=== PATIENT | female | born 1940 | race Caucasian/White ===

== ENCOUNTER → 2020-06-29 09:29 | Outpatient (BNVA) | payer MEDICARE, SELFPAY | PROVIDERS: PCP Internal Medicine; Referring Provider Internal Medicine; Visit Provider Surgery | DX: R10.31 Right lower quadrant pain (principal) | CPT/HCPCS: 99203; 99214 ==

== ENCOUNTER 2020-07-12 10:01 | Outpatient (REF) | payer MEDICARE, SELFPAY ==
[2020-07-12 11:40] LABS: Blood Urea Nitrogen 10 mg/dL (9-16); Estimated Glomerular Filt Rate > 60
== END 2020-07-12 10:02 | disposition home or self-care (01) ==
LOC: HO.LAB 10:01
PROVIDERS: PCP Internal Medicine; Visit Provider Surgery
DX: R10.31 Right lower quadrant pain (principal)
CPT/HCPCS: 82565; 84520

== ENCOUNTER 2020-07-17 08:10 | Outpatient (REF) | payer MEDICARE, SELFPAY ==
--- NOTE | 2020-07-17 08:13 | CT_ITS ---
EXAMINATION: CT ABDOMEN AND PELVIS WITH CONTRAST CLINICAL INFORMATION: Right lower quadrant pain. COMPARISON: Ultrasound abdomen 06/07/2020, CT abdomen and pelvis 12/25/2019 TECHNIQUE: Multidetector volumetric images were obtained from the superior aspect of the liver through the pubic symphysis following administration 85 mL of Omnipaque 350 intravenous contrast. Sagittal and coronal reformatted images were obtained on the technologist's workstation. Oral contrast: No This CT examination was performed using dose optimization techniques as appropriate, variously including the following: *Automated exposure control *Adjustment of mA and/or kV according to patient size (this includes techniques or standardized protocols for targeted exams where dose is matched to indication/reason for exam; i.e. extremities or head) *Use of iterative reconstruction technique DLP: 534 mGy-cm FINDINGS: LUNG BASES: The visualized lung bases are unremarkable. LIVER, GALLBLADDER, AND BILIARY TREE: The liver is normal in size, shape, and attenuation. No focal hepatic lesion or biliary ductal dilatation is present. There are multiple dependent radiopaque gallstones without wall thickening. PANCREAS: Unremarkable. SPLEEN: Unremarkable. ADRENAL GLANDS: Unremarkable. KIDNEYS AND URETERS: Both kidneys are lobulated with the right kidney appearing slightly smaller than the left. The right kidney measures 7.10 cm and the left kidney measures 9.8 cm. There is mild cortical thinning right kidney. There are bilateral renal cysts. No radiopaque renal calculi or hydronephrosis seen. There are surgical alex visualized in the right pelvis. BLADDER: Unremarkable. GASTROINTESTINAL TRACT: There is scattered oral contrast, stool and gas seen throughout the colon without any significant distention. The small bowel loops are normal caliber. The appendix is not visualized. There is no free air or free fluid. No inflammatory changes seen in the abdomen. ABDOMINAL WALL: No significant hernia is appreciated. LYMPH NODES: Normal. VASCULAR: There is atherosclerotic calcification of abdominal aorta without aneurysmal dilatation. PELVIC VISCERA: The uterus is anteverted and appears unremarkable. There is no adnexal mass or free fluid. OSSEOUS STRUCTURES: There is mild ventral spondylosis throughout dorsal and lumbar spine. No lytic or sclerotic process seen. There is bilateral L5-S1, L4-L5 and L3-L4 facet joint arthropathy. CT/CT abdomen pelvis w con IMPRESSION: Cholelithiasis without wall thickening. Small right kidney with cortical thinning. Bilateral lobulated kidneys with bilateral renal cysts. No hydronephrosis seen.
[2020-07-17] MEDS: iohexoL 350 MG/ML 100 ML INFUS..BTL 85 ML IV (11:54)
[2020-07-17] MEDS: Barium Sulfate Oral (Vanilla) 450 ML ORAL.SUSP 900 ML PO (11:54)
== END 2020-07-17 08:11 | disposition home or self-care (01) ==
LOC: HO.CT 08:10
PROVIDERS: PCP Internal Medicine; Visit Provider Surgery
DX: R10.31 Right lower quadrant pain (principal)
CPT/HCPCS: 74177; Q9967

== ENCOUNTER → 2020-07-20 08:24 | Outpatient (BNVA) | payer MEDICARE, SELFPAY | PROVIDERS: PCP Internal Medicine; Referring Provider Internal Medicine; Visit Provider Surgery | DX: R10.31 Right lower quadrant pain (principal); S39.011D Strain of muscle, fascia and tendon of abdomen, subsequent encounter | CPT/HCPCS: 99212 ==

== ENCOUNTER 2020-11-06 14:23 | Outpatient (REF) | payer MEDICARE, SELFPAY ==
[2020-11-06 15:04] LABS: MANUAL DIFF FLAG NO
[2020-11-06 15:09] LABS: Basophils Absolute Auto 0.1 X10*3/uL (0.0-0.2); Basophils Percent Auto 0.9 % (0-2); Eosinophils Absolute Auto 0.1 X10*3/uL (0.0-0.4); Eosinophils Percent Auto 1.3 % (0-4); Hematocrit 44.1 % (37-47); Imm Gran Abs Auto 0.03 X10*3/uL (0.00-0.03); Imm Gran Pct Auto 0.4 % (0.0-0.4); Lymphocytes Absolute Auto 1.8 X10*3/uL (1.2-4.9); Lymphocytes Percent Auto 23.3 % (20-40); Mean Corpuscular HGB Conc 31.7 g/dl (31.0-35.0); Mean Corpuscular Hemoglobin 27.3 pg (27.0-33.0); Mean Corpuscular Volume 86.1 fL (80-98); Mean Platelet Volume 9.6 fL (9.4-12.3); Monocytes Absolute Auto 0.6 X10*3/uL (0.1-1.2); Monocytes Percent Auto 7.3 % (2-11); Neutrophils Absolute Auto 5.1 X10*3/uL (2.0-8.3); Neutrophils Percent Auto 66.8 % (45-73); Platelet Count 256 X10*3/uL (160-400); Red Blood Count 5.12 X10*6/uL (4.20-5.50); Red Cell Distribution Width 14.6 % (11.0-16.0); White Blood Count 7.6 X10*3/uL (4.8-10.8)
[2020-11-06 15:09] LABS: Glucose Urine UA NEG (NEG); Leukocyte Esterase Urine 3+ (NEG); Nitrite Urine NEG (NEG); PH 5.5 (5.0-8.0); UACC Culture Trigger YES; Urine Blood TRACE (NEG); Urine Ketones NEG (NEG); Urine Protein NEG (NEG-TRACE)
[2020-11-06 15:10] LABS: Appearance Urine CLOUDY; Color Urine YELLOW
[2020-11-06 15:28] LABS: Alanine Aminotransferase 13 U/L (0-31); Albumin Level 4.4 g/dL (3.5-5.0); Alkaline Phosphatase 74 U/L (39-117); Anion Gap 13 (12-20); Aspartate Amino Transferase 13 U/L (5-31); Bilirubin Total 0.5 mg/dL (0.0-1.0); Blood Urea Nitrogen 15 mg/dL (9-16); C Reactive Protein 0.59 mg/dL (< or = 0.50); Calcium 10.1 mg/dL (8.4-10.2); Carbon Dioxide 29 mmol/L (22-29); Chloride 104 mmol/L (96-108); Cholesterol 235 mg/dL; Estimated Glomerular Filt Rate > 60; Glucose Random 99 mg/dL (60-115); Potassium 4.8 mmol/L (3.3-5.1); Sodium 141 mmol/L (135-145); Total Protein 7.3 g/dL (6.5-8.0)
[2020-11-06 15:49] LABS: Free T4 (Free Thyroxine) 0.96 ng/dL (0.71-1.85); Thyroid Stimulating Hormone 4.36 uIU/mL (0.32-4.0)
[2020-11-06 16:47] LABS: RBC Urine 0 /HPF (0); Squamous Epithelial Cell Urine 1+ /LPF; WBC Urine 50-75 /HPF (0-4)
[2020-11-06 16:48] LABS: Renal Epithelial Cells Urine 2+ /LPF
== END 2020-11-06 14:24 | disposition home or self-care (01) ==
LOC: HO.LAB 14:23
PROVIDERS: PCP Internal Medicine; Visit Provider Internal Medicine
DX: I10 Essential (primary) hypertension (principal); E03.9 Hypothyroidism, unspecified; M25.519 Pain in unspecified shoulder; K21.9 Gastro-esophageal reflux disease without esophagitis; R10.9 Unspecified abdominal pain; N28.9 Disorder of kidney and ureter, unspecified
CPT/HCPCS: 36415; 80053; 81001; 81003; 82465; 84439; 84443; 85025; 86140; 87086

== ENCOUNTER 2020-11-12 12:07 | Outpatient (REF) | payer MEDICARE, SELFPAY ==
[2020-11-12 14:05] LABS: Urine Cytology See Pathology rpt
[2020-11-12 14:20] LABS: Glucose Urine UA NEG (NEG); Leukocyte Esterase Urine 2+ (NEG); Nitrite Urine NEG (NEG); UACC Culture Trigger YES; Urine Blood NEG (NEG); Urine Ketones NEG (NEG); Urine Protein NEG (NEG-TRACE)
[2020-11-12 14:23] LABS: Appearance Urine HAZY; Color Urine STRAW
[2020-11-12 14:32] LABS: RBC Urine 0 /HPF (0); Squamous Epithelial Cell Urine TRACE /LPF
== END 2020-11-12 12:08 | disposition home or self-care (01) ==
LOC: HO.10HDL 12:07
PROVIDERS: Visit Provider Internal Medicine
DX: D72.829 Elevated white blood cell count, unspecified (principal); R35.0 Frequency of micturition
CPT/HCPCS: 81001; 81003; 87086; 88112

== ENCOUNTER 2021-02-20 12:17 | Outpatient (REF) | payer MEDICARE, SELFPAY ==
[2021-02-20 12:56] LABS: MANUAL DIFF FLAG NO
[2021-02-20 13:05] LABS: Estimated Average Glucose 103 mg/dL; Hemoglobin A1C 111.6296 umol/L; Hemoglobin A1c % 5.2 %
[2021-02-20 13:06] LABS: Basophils Absolute Auto 0.1 X10*3/uL (0.0-0.2); Basophils Percent Auto 0.7 % (0-2); Eosinophils Absolute Auto 0.1 X10*3/uL (0.0-0.4); Eosinophils Percent Auto 1.8 % (0-4); Hematocrit 41.2 % (37-47); Imm Gran Abs Auto 0.03 X10*3/uL (0.00-0.03); Imm Gran Pct Auto 0.4 % (0.0-0.4); Lymphocytes Percent Auto 27.8 % (20-40); Mean Corpuscular HGB Conc 31.6 g/dl (31.0-35.0); Mean Corpuscular Hemoglobin 27.7 pg (27.0-33.0); Mean Corpuscular Volume 87.7 fL (80-98); Monocytes Absolute Auto 0.6 X10*3/uL (0.1-1.2); Monocytes Percent Auto 8.4 % (2-11); Neutrophils Absolute Auto 4.4 X10*3/uL (2.0-8.3); Neutrophils Percent Auto 60.9 % (45-73); Platelet Count 224 X10*3/uL (160-400); Red Cell Distribution Width 15.2 % (11.0-16.0); White Blood Count 7.2 X10*3/uL (4.8-10.8)
[2021-02-20 13:20] LABS: Alanine Aminotransferase 10 U/L (0-31); Albumin Level 4.1 g/dL (3.5-5.0); Alkaline Phosphatase 79 U/L (39-117); Anion Gap 12 (12-20); Aspartate Amino Transferase 15 U/L (5-31); Bilirubin Total 0.4 mg/dL (0.0-1.0); Blood Urea Nitrogen 17 mg/dL (9-16); Calcium 10.1 mg/dL (8.4-10.2); Carbon Dioxide 27 mmol/L (22-29); Chloride 106 mmol/L (96-108); Estimated Glomerular Filt Rate 55; Glucose Random 92 mg/dL (60-115); Phosphorus 3.3 mg/dL (2.7-4.5); Potassium 4.7 mmol/L (3.3-5.1); Sodium 140 mmol/L (135-145); Total Protein 6.8 g/dL (6.5-8.0); Uric Acid 7.8 mg/dL (2.4-5.7)
[2021-02-20 13:41] LABS: Vitamin D 25-OH Total 17.3 ng/mL (>30)
[2021-02-20 14:51] LABS: Glucose Urine UA NEG (NEG); Leukocyte Esterase Urine 2+ (NEG); Nitrite Urine NEG (NEG); Urine Blood NEG (NEG); Urine Ketones NEG (NEG); Urine Protein NEG (NEG-TRACE)
[2021-02-20 14:52] LABS: Appearance Urine HAZY; Color Urine YELLOW
[2021-02-20 15:08] LABS: Bacteria Urine 1+ /LPF; Squamous Epithelial Cell Urine 1+ /LPF
[2021-02-20 17:00] LABS: Creatinine Urine 96.88 mg/dL; Microalbum/Creatinine Ratio Ur 8.2 ug/mg cr
[2021-02-22 15:57] LABS: Calcium (PTHI) 10.3 mg/dL (8.6-10.4); PTHI 125 pg/mL (14-64)
== END 2021-02-20 12:18 | disposition home or self-care (01) ==
LOC: HO.LAB 12:17
PROVIDERS: Internal Medicine; PCP Internal Medicine; Visit Provider Internal Medicine Hypertension Specialist
DX: N18.30 Chronic kidney disease, stage 3 unspecified (principal)
CPT/HCPCS: 36415; 80053; 81001; 82043; 82306; 83036; 83735; 83970; 84100; 84550; 85025

== ENCOUNTER 2021-04-24 10:16 | Outpatient (REF) | payer MEDICARE, SELFPAY ==
--- NOTE | ~2021-04-24 | MM_ITS ---
EXAMINATION: BONE DENSITOMETRY CLINICAL INDICATION: Osteoporosis. Primary hyperparathyroidism. COMPARISON: This is the patient's baseline examination. TECHNIQUE: Using a [employer] DXA System (software version: 13.1) manufactured by [employer], dual-energy x-ray absorptiometry was performed of the lumbar spine, left hip, and left forearm radius 33%. The images are of good technical quality. Summary results are attached. FINDINGS: AP SPINE L1-L4: BMD 1.396 g/cm2, Z-score 2.5, T-score 1.8, normal. LEFT FEMUR, NECK: BMD 0.712 g/cm2, Z-score -0.9, T-score -2.3, osteopenia. LEFT FEMUR, TOTAL: BMD 0.859 g/cm2, Z-score 0.0, T-score -1.2, osteopenia. LEFT FOREARM RADIUS 33%: BMD 0.889 g/cm2, Z-score 2.9, T-score 0.1, normal. IDENTIFIED RISK FACTORS: Hyperparathyroidism, tobacco use (current smoker), height loss, menopause. HISTORY OF FRACTURE: None listed. MEDICATIONS: None listed. MM/XR DEXA appendicular skeleton IMPRESSION: 1. DIAGNOSIS: Osteopenia based on the lowest T-score value of -2.3 in the femoral neck applying World Health Organization criteria. 2. 10-YEAR FRACTURE RISK PREDICTION, FRAX: Major osteoporotic fracture (clinical spine, forearm, hip or shoulder) 17.6%. Hip fracture 8.0%. 3. Treatment Recommendations: NOF guidelines recommend consideration for treatment in postmenopausal women and men age 50 and older presenting with the following: -A hip or vertebral (clinical or morphometric) fracture. -T-score less than or equal to -2.5 at the femoral neck or spine after appropriate evaluation to exclude secondary causes. -Low bone mass at the hip or spine and a 10-year fracture probability by FRAX of greater than or equal to 3% for hip fracture or greater than or equal to 20% for major osteoporotic fracture based on the [place] adapted WHO algorithm. 4. Other Recommendations: All treatment decisions require clinical judgment and consideration of individual patient factors, including patient preferences, comorbidities, previous drug use, risk factors not captured in the FRAX model (e.g. frailty, falls, vitamin D deficiency, increased bone turnover, interval significant decline in bone density) and possible under or overestimation of fracture risk by FRAX. Additional medical evaluation for secondary cause of low bone mineral density may be appropriate. FUTURE SCAN RECOMMENDATION: People with diagnosed cases of osteoporosis or at high risk for fracture should have regular bone mineral density tests. For patients eligible for Medicare, routine testing is allowed once every 2 years. The testing frequency can be increased to one year for patients who have rapidly progressing disease, those who are receiving or discontinuing medical therapy to restore bone mass, or have additional risk factors.
== END 2021-04-24 10:17 | disposition home or self-care (01) ==
LOC: HO.MAMMO 10:16
PROVIDERS: Visit Provider Internal Medicine
DX: Z13.820 Encounter for screening for osteoporosis (principal); E21.0 Primary hyperparathyroidism; F17.200 Nicotine dependence, unspecified, uncomplicated; R29.890 Loss of height; Z78.0 Asymptomatic menopausal state
CPT/HCPCS: 77081

== ENCOUNTER 2021-05-22 13:46 | Outpatient (REF) | payer MEDICARE, SELFPAY ==
[2021-05-22 14:20] LABS: MANUAL DIFF FLAG NO
[2021-05-22 14:23] LABS: Basophils Percent Auto 0.4 % (0-2); Eosinophils Absolute Auto 0.1 X10*3/uL (0.0-0.4); Eosinophils Percent Auto 1.7 % (0-4); Hemoglobin 13.3 g/dl (12.0-16.0); Imm Gran Abs Auto 0.03 X10*3/uL (0.00-0.03); Imm Gran Pct Auto 0.4 % (0.0-0.4); Lymphocytes Absolute Auto 1.6 X10*3/uL (1.2-4.9); Lymphocytes Percent Auto 23.2 % (20-40); Mean Corpuscular HGB Conc 31.7 g/dl (31.0-35.0); Mean Corpuscular Hemoglobin 27.7 pg (27.0-33.0); Mean Corpuscular Volume 87.3 fL (80-98); Mean Platelet Volume 9.5 fL (9.4-12.3); Monocytes Absolute Auto 0.5 X10*3/uL (0.1-1.2); Monocytes Percent Auto 7.8 % (2-11); Neutrophils Absolute Auto 4.6 X10*3/uL (2.0-8.3); Neutrophils Percent Auto 66.5 % (45-73); Platelet Count 228 X10*3/uL (160-400); Red Blood Count 4.81 X10*6/uL (4.20-5.50); Red Cell Distribution Width 14.9 % (11.0-16.0); White Blood Count 6.9 X10*3/uL (4.8-10.8)
[2021-05-22 14:49] LABS: Alanine Aminotransferase 8 U/L (0-31); Albumin Level 4.2 g/dL (3.5-5.0); Alkaline Phosphatase 68 U/L (39-117); Anion Gap 14 (12-20); Aspartate Amino Transferase 13 U/L (5-31); Bilirubin Total 0.7 mg/dL (0.0-1.0); Blood Urea Nitrogen 15 mg/dL (9-16); C Reactive Protein 0.65 mg/dL (< or = 0.50); Calcium 10.5 mg/dL (8.4-10.2); Carbon Dioxide 26 mmol/L (22-29); Chloride 107 mmol/L (96-108); Estimated Glomerular Filt Rate 55; Glucose Random 109 mg/dL (60-115); Potassium 4.4 mmol/L (3.3-5.1); Sodium 143 mmol/L (135-145); Total Protein 6.8 g/dL (6.5-8.0)
[2021-05-22 15:08] LABS: Free T4 (Free Thyroxine) 1.23 ng/dL (0.71-1.85)
[2021-05-22 15:22] LABS: Vitamin B12 283 pg/mL (200-900)
[2021-05-26 06:31] LABS: Calcium (PTHI) 10.4 mg/dL (8.6-10.4); PTHI 99 pg/mL (14-64)
== END 2021-05-22 13:47 | disposition home or self-care (01) ==
LOC: HO.LAB 13:46
PROVIDERS: Visit Provider Internal Medicine
DX: I12.9 Hypertensive chronic kidney disease with stage 1 through stage 4 chronic kidney disease, or unspecified chronic kidney disease (principal); N18.9 Chronic kidney disease, unspecified; E03.9 Hypothyroidism, unspecified; M25.511 Pain in right shoulder; M25.512 Pain in left shoulder; D72.829 Elevated white blood cell count, unspecified
CPT/HCPCS: 36415; 80053; 82607; 83970; 84439; 84443; 85025; 86140

== ENCOUNTER 2021-07-03 10:45 | Outpatient (REF) | payer MEDICARE, SELFPAY ==
--- NOTE | ~2021-07-03 | XR_ITS ---
EXAMINATION: XR SHOULDER, LEFT CLINICAL INFORMATION: Pain COMPARISON: Left humerus x-ray April 2011 TECHNIQUE: 3 views of the left shoulder. FINDINGS: Bone alignment is normal. No fracture or dislocation is seen. There is arthritis at the glenohumeral and acromioclavicular joints with joint space narrowing and osteophyte formation. There degenerative changes of the greater tuberosity with subchondral cyst formation. There is soft tissue calcification adjacent to the left greater tuberosity. XR/XR shoulder LT min 2V IMPRESSION: Degenerative changes.
--- NOTE | ~2021-07-03 | XR_ITS ---
EXAMINATION: XR CHEST CLINICAL INFORMATION: Chest wall pain COMPARISON: Previous chest x-ray most recent October 2019 TECHNIQUE: 2 views of the chest were obtained. FINDINGS: The cardiac and mediastinal contours are stable. The lungs are clear. There is no pleural effusion or pneumothorax. There are degenerative changes of the spine. Bony structures are otherwise unremarkable. XR/XR chest 2V IMPRESSION: No evidence for acute disease in the chest.
== END 2021-07-03 10:46 | disposition home or self-care (01) ==
LOC: HO.XRAY 10:45
PROVIDERS: Visit Provider Internal Medicine
DX: R07.89 Other chest pain (principal); M25.512 Pain in left shoulder
CPT/HCPCS: 71046; 73030

== ENCOUNTER → 2021-08-05 09:50 | Outpatient (BNVA) | payer MEDICARE, SELFPAY | PROVIDERS: PCP Internal Medicine; Visit Provider Orthopaedic Surgery | DX: M12.812 Other specific arthropathies, not elsewhere classified, left shoulder (principal) | CPT/HCPCS: 20610; 99202; J1100 ==

== ENCOUNTER 2021-11-13 16:08 | Emergency (ER) | payer MEDICARE, SELFPAY ==
--- NOTE | ~2021-11-13 | CT_ITS ---
EXAMINATION: CT ABDOMEN AND PELVIS WITHOUT CONTRAST CLINICAL INFORMATION: Right-sided flank pain COMPARISON: Multiple prior CT scans of the abdomen and pelvis most recent of which was 07/17/2020 TECHNIQUE: Multidetector volumetric imaging was performed from the superior aspect of the liver through the pubic symphysis. Sagittal and coronal reformatted images were obtained on the technologist's workstation. This CT examination was performed using dose optimization techniques as appropriate, variously including the following: *Automated exposure control *Adjustment of mA and/or kV according to patient size (this includes techniques or standardized protocols for targeted exams where dose is matched to indication/reason for exam; i.e. extremities or head) *Use of iterative reconstruction technique DLP: 767 mGy-cm FINDINGS: LUNG BASES: The visualized lung bases are unremarkable. LIVER, GALLBLADDER, AND BILIARY TREE: The liver is enlarged measuring 18.8 cm in greatest dimension. Normal in shape and attenuation. The gallbladder contains multiple layering small gallstones but otherwise is unremarkable with no evidence of gallbladder wall thickening or obvious pericholecystic inflammatory changes. PANCREAS: Unremarkable. SPLEEN: Unremarkable. ADRENAL GLANDS: Unremarkable. KIDNEYS AND URETERS: Again seen is marked scarring in the right kidney along with some complex cysts. The left kidney is normal in size and contains a number of cysts as well the largest a Bosniak class I measuring 1.5 cm with multiple subcentimeter hyperechoic attenuating Bosniak class II cysts. These need no further imaging or follow-up. 2 surgical clips are present adjacent to the right renal pelvis. No definite collecting system calculi are present. No hydronephrosis. BLADDER: Unremarkable. GASTROINTESTINAL TRACT: The small and large bowel are unremarkable. The appendix is not seen. ABDOMINAL WALL: No significant hernia is appreciated. LYMPH NODES: No retroperitoneal lymphadenopathy. VASCULAR: Calcific plaque present in the aorta and iliofemoral vessels without aneurysm. Left renal vein is retroaortic. PELVIC VISCERA: An anteverted uterus is present. An abnormal adnexal mass is not seen. No free intraperitoneal fluid is detected. OSSEOUS STRUCTURES: Marked degenerative changes present in the lower thoracic upper lumbar spine. Minimal grade 1 anterolisthesis of L5 upon S1. No bony destructive lesions. CT/CT abdomen pelvis wo con IMPRESSION: 1. A cause for the patient's acute right-sided flank pain is not seen. No convincing evidence of nephrolithiasis and no hydronephrosis. 2. There is cholelithiasis without cholecystitis. 3. Mild hepatosplenomegaly. 4. Other incidental findings as described above Fleischner guidelines were followed.
[2021-11-13 17:40] VITALS: BP 197/63; PULSE 61; RESP 18; TEMP 37.1; O2SAT 95; BMI 33.9
[2021-11-13 18:02] LABS: Appearance Urine CLEAR; Color Urine YELLOW; Glucose Urine UA NEG (NEG); Leukocyte Esterase Urine 1+ (NEG); Nitrite Urine NEG (NEG); UACC Culture Trigger YES; Urine Blood NEG (NEG); Urine Ketones NEG (NEG); Urine Protein NEG (NEG-TRACE)
[2021-11-13 18:14] LABS: MANUAL DIFF FLAG NO
[2021-11-13 18:16] LABS: Basophils Absolute Auto 0.1 X10*3/uL (0.0-0.2); Basophils Percent Auto 0.8 % (0-2); Eosinophils Absolute Auto 0.1 X10*3/uL (0.0-0.4); Eosinophils Percent Auto 1.6 % (0-4); Hematocrit 44.4 % (37.0-47.0); Hemoglobin 14.1 g/dl (12.0-16.0); Imm Gran Abs Auto 0.02 X10*3/uL (0.00-0.03); Imm Gran Pct Auto 0.3 % (0.0-0.4); Lymphocytes Absolute Auto 1.9 X10*3/uL (1.2-4.9); Lymphocytes Percent Auto 25.3 % (20-40); Mean Corpuscular HGB Conc 31.8 g/dl (31.0-35.0); Mean Corpuscular Hemoglobin 27.8 pg (27.0-33.0); Mean Corpuscular Volume 87.4 fL (80.0-98.0); Mean Platelet Volume 9.3 fL (9.4-12.3); Monocytes Absolute Auto 0.5 X10*3/uL (0.1-1.2); Monocytes Percent Auto 5.9 % (2-11); Neutrophils Absolute Auto 5.1 x10*3/uL (2.0-8.3); Neutrophils Percent Auto 66.1 % (45-73); Platelet Count 248 X10*3/uL (160-400); Red Blood Count 5.08 X10*6/uL (4.20-5.50); Red Cell Distribution Width 14.8 % (11.0-16.0); White Blood Count 7.7 X10*3/uL (4.8-10.8)
[2021-11-13 18:27] LABS: Anion Gap 14 (12-20); Blood Urea Nitrogen 12 mg/dL (9-16); Carbon Dioxide 25 mmol/L (22-29); Chloride 106 mmol/L (96-108); Creatinine Clr Calc Pharmacy 60.6; Estimated Glomerular Filt Rate > 60; Glucose Random 98 mg/dL (60-115); Potassium 4.6 mmol/L (3.3-5.1); Sodium 140 mmol/L (135-145)
[2021-11-13 18:31] LABS: WBC Urine 0-2 /HPF (0-4)
[2021-11-13 18:32] LABS: Bacteria Urine TRACE /LPF; RBC Urine 0-2 /HPF (0); Squamous Epithelial Cell Urine TRACE /LPF
[2021-11-13 19:14] VITALS: BP 152/65; PULSE 73; RESP 14; TEMP 36.4; O2SAT 96
--- NOTE | 2021-11-13 19:15 | ED_ITS ---
HPI - Abdominal Pain General Chief Complaint: Abdominal Pain <Mayo Pike MD - Last Filed: 11/13/21 19:19> Stated Complaint: back pain, kidney stones? <Mayo Pike MD - Last Filed: 11/13/21 19:19> Time Seen by Provider: 11/13/21 19:00 <Mayo Pike MD - Last Filed: 11/13/21 19:19> Source: patient, family and old records reviewed <Mayo Pike MD - Last Filed: 11/13/21 19:19> History of Present Illness HPI narrative: Patient with right flank pain for the past 3 days. Radiates to right side of abdomen. She has a long history of kidney stones over the past 30 years with multiple prior procedures including open surgery and lithotripsy. Last kidney stone was approximately 4 or 5 years ago per family. She states it feels similar to kidney stone which can be positive. No urinary symptoms. No hematuria dysuria hesitancy or frequency. No nausea vomiting. Pain is worse with movement and palpation. It is sharp. No other recent illnesses. No cough or dyspnea <Mayo Pike MD - Last Filed: 11/13/21 19:19> Related Data Home Medications: Home Medications Medication Instructions Recorded Confirmed levothyroxine 125 mcg tablet 125 mcg PO DAILY 06/29/20 06/29/20 metoprolol tartrate 25 mg tablet 25 mg PO DAILY tab 06/29/20 06/29/20 Previous Rx's Medication Instructions Recorded cyclobenzaprine 5 mg tablet 5 mg PO BEDTIME PRN #6 tab 11/13/21 lidocaine 5 % topical patch 1 patch TOPICAL DAILY PRN #15 ea 11/13/21 <Mayo Pike MD - Last Filed: 11/13/21 19:19> Allergies/Adverse Reactions: Allergies Allergy/AdvReac Type Severity Reaction Status Date / Time No Known Allergies Allergy Verified 11/13/21 17:39 [No Known Allergies*] <Mayo Pike MD - Last Filed: 11/13/21 19:19> Review of Systems Comments: No fevers or chills <Mayo Pike MD - Last Filed: 11/13/21 19:19> Comments: No chest pain <Mayo Pike MD - Last Filed: 11/13/21 19:19> Comments: No cough or dyspnea <Mayo Pike MD - Last Filed: 11/13/21 19:19> Comments: Right flank pain with intermittent right mid abdominal pain. No abdominal pain now <Mayo Pike MD - Last Filed: 11/13/21 19:19> Comments: No dysuria, hematuria, hesitancy, or frequency <Mayo Pike MD - Last Filed: 11/13/21 19:19> Comments: Right flank pain <Mayo Pike MD - Last Filed: 11/13/21 19:19> Comments: No rash <Mayo Pike MD - Last Filed: 11/13/21 19:19> Comments: No weakness or numbness <Mayo Pike MD - Last Filed: 11/13/21 19:19> PMFSH Past Medical History Medical History: Medical History (Updated 11/13/21 @ 21:46 by NITHYA Fishman) Arthritis Hard of hearing Hypertension Hypothyroidism (acquired) Kidney stones <Mayo Pike MD - Last Filed: 11/13/21 19:19> Surgical History: Surgical History History of lithotripsy (~08/15/16) History of thyroidectomy <Mayo Pike MD - Last Filed: 11/13/21 19:19> Family History Family History: Family History Father Myocardial infarct Mother Myocardial infarct <Mayo Pike MD - Last Filed: 11/13/21 19:19> Social History Social History: Social History Advance Directives: No Advance Directives Information Provided: No <Mayo Pike MD - Last Filed: 11/13/21 19:19> Physical Exam ED Vital Signs: Vital Signs - 24 hr 11/13/21 17:40 11/13/21 19:14 Temperature 98.7 F 97.5 F Pulse Rate 61 73 Respiratory Rate 18 14 Blood Pressure 197/63 H 152/65 H Pulse Oximetry 95 96 BMI result Body Mass Index 33.9 <Mayo Pike MD - Last Filed: 11/13/21 19:19> Vital Signs - 24 hr 11/13/21 17:40 11/13/21 19:14 Temperature 98.7 F 97.5 F Pulse Rate 61 73 Respiratory Rate 18 14 Blood Pressure 197/63 H 152/65 H Pulse Oximetry 95 96 BMI result Body Mass Index 33.9 <NITHYA Fishman - Last Filed: 11/13/21 21:49> Const Other: Awake and alert in no acute distress <Mayo Pike MD - Last Filed: 11/13/21 19:19> Resp Other: Clear and equal bilaterally without wheezes rales or rhonchi <Mayo Pike MD - Last Filed: 11/13/21 19:19> Cardio Other: Regular rate and rhythm. Holosystolic murmur <Mayo Pike MD - Last Filed: 11/13/21 19:19> GI Other: Soft nontender anteriorly. Nondistended. Positive right flank tenderness to palpation and percussion <Mayo Pike MD - Last Filed: 11/13/21 19:19> Back/Spine/Pelvis Other: No midline spinal tenderness <Mayo Pike MD - Last Filed: 11/13/21 19:19> Skin Other: Warm pink and dry without rash <Mayo Pike MD - Last Filed: 11/13/21 19:19> Neuro Other: No focal neural deficit <Mayo Pike MD - Last Filed: 11/13/21 19:19> Course Course Course Narrative: Kidney stone Musculoskeletal pain Uncontrolled hypertension Aortic aneurysm CBC and chemistries are unremarkable. Treated with metoprolol. Toradol IV Normal saline [address] scan <Mayo Pike MD - Last Filed: 11/13/21 19:19> Reevaluation(s) Reevaluation #1: Patient reports significant improvement with Toradol. CT of the abdomen and pelvis with no acute stones. There are renal cyst. No hydronephrosis. Patient's pain is likely musculoskeletal will give her low dose of cyclobenza meghan and a lidocaine patch. Comfortable discharge home with specialist follow- up. <NITHYA Fishman - Last Filed: 11/13/21 21:49> Time: 21:48 <NITHYA Fishman - Last Filed: 11/13/21 21:49> MDM - Abdominal Pain Lab Data Result diagrams: : 11/13/21 18:10 11/13/21 18:10 <Mayo Pike MD - Last Filed: 11/13/21 19:19> Labs: Lab Results 11/13/21 11/13/21 11/13/21 Range/Units 17:54 18:10 18:10 WBC 7.7 (4.8-10.8) X10*3/uL RBC 5.08 (4.20-5.50) X10*6/uL Hgb 14.1 (12.0-16.0) g/dl Hct 44.4 (37.0-47.0) % MCV 87.4 (80.0-98.0) fL MCH 27.8 (27.0-33.0) pg MCHC 31.8 (31.0-35.0) g/dl RDW 14.8 (11.0-16.0) % Plt Count 248 (160-400) X10*3/uL MPV 9.3 L (9.4-12.3) fL Immature Gran % (Auto) 0.3 (0.0-0.4) % Neut % (Auto) 66.1 (45-73) % Lymph % (Auto) 25.3 (20-40) % [place] % (Auto) 5.9 (2-11) % Eos % (Auto) 1.6 (0-4) % Baso % (Auto) 0.8 (0-2) % Lymph # (Auto) 1.9 (1.2-4.9) X10*3/uL [place] # (Auto) 0.5 (0.1-1.2) X10*3/uL Eos # (Auto) 0.1 (0.0-0.4) X10*3/uL Baso # (Auto) 0.1 (0.0-0.2) X10*3/uL Abs Immat Gran (auto) 0.02 (0.00-0.03) X10*3/uL Absolute Neuts (auto) 5.1 (2.0-8.3) x10*3/uL Absolute Nucleated RBC 0.000 (0.0-0.012) X10*3/uL Nucleated RBC % (auto) 0.0 (0.0-0.2) /100WBC Sodium 140 (135-145) mmol/L Potassium 4.6 (3.3-5.1) mmol/L Chloride 106 (96-108) mmol/L Carbon Dioxide 25 (22-29) mmol/L Anion Gap 14 (12-20) BUN 12 (9-16) mg/dL Creatinine 0.86 (0.5-1.4) mg/dL Estim Creat Clear Calc 60.6 Estimated GFR > 60 Random Glucose 98 (60-115) mg/dL Calcium 10.0 (8.4-10.2) mg/dL Urine Color YELLOW Urine Appearance CLEAR Urine pH 6.0 (5.0-8.0) Ur Specific [place] 1.020 (1.005-1.025) Urine Protein NEG (NEG-TRACE) MG/DL Urine Glucose (UA) NEG (NEG) MG/DL Urine Ketones NEG (NEG) MG/DL Urine Blood NEG (NEG) Urine Nitrite NEG (NEG) Ur Leukocyte Esterase 1+ H (NEG) Urine RBC 0-2 (0) /HPF Urine WBC 0-2 (0-4) /HPF Ur Squamous Epith Cells TRACE /LPF Urine Bacteria TRACE /LPF <Mayo Pike MD - Last Filed: 11/13/21 19:19> Lab Results 11/13/21 11/13/21 11/13/21 Range/Units 17:54 18:10 18:10 WBC 7.7 (4.8-10.8) X10*3/uL RBC 5.08 (4.20-5.50) X10*6/uL Hgb 14.1 (12.0-16.0) g/dl Hct 44.4 (37.0-47.0) % MCV 87.4 (80.0-98.0) fL MCH 27.8 (27.0-33.0) pg MCHC 31.8 (31.0-35.0) g/dl RDW 14.8 (11.0-16.0) % Plt Count 248 (160-400) X10*3/uL MPV 9.3 L (9.4-12.3) fL Immature Gran % (Auto) 0.3 (0.0-0.4) % Neut % (Auto) 66.1 (45-73) % Lymph % (Auto) 25.3 (20-40) % [place] % (Auto) 5.9 (2-11) % Eos % (Auto) 1.6 (0-4) % Baso % (Auto) 0.8 (0-2) % Lymph # (Auto) 1.9 (1.2-4.9) X10*3/uL [place] # (Auto) 0.5 (0.1-1.2) X10*3/uL Eos # (Auto) 0.1 (0.0-0.4) X10*3/uL Baso # (Auto) 0.1 (0.0-0.2) X10*3/uL Abs Immat Gran (auto) 0.02 (0.00-0.03) X10*3/uL Absolute Neuts (auto) 5.1 (2.0-8.3) x10*3/uL Absolute Nucleated RBC 0.000 (0.0-0.012) X10*3/uL Nucleated RBC % (auto) 0.0 (0.0-0.2) /100WBC Sodium 140 (135-145) mmol/L Potassium 4.6 (3.3-5.1) mmol/L Chloride 106 (96-108) mmol/L Carbon Dioxide 25 (22-29) mmol/L Anion Gap 14 (12-20) BUN 12 (9-16) mg/dL Creatinine 0.86 (0.5-1.4) mg/dL Estim Creat Clear Calc 60.6 Estimated GFR > 60 Random Glucose 98 (60-115) mg/dL Calcium 10.0 (8.4-10.2) mg/dL Urine Color YELLOW Urine Appearance CLEAR Urine pH 6.0 (5.0-8.0) Ur Specific [place] 1.020 (1.005-1.025) Urine Protein NEG (NEG-TRACE) MG/DL Urine Glucose (UA) NEG (NEG) MG/DL Urine Ketones NEG (NEG) MG/DL Urine Blood NEG (NEG) Urine Nitrite NEG (NEG) Ur Leukocyte Esterase 1+ H (NEG) Urine RBC 0-2 (0) /HPF Urine WBC 0-2 (0-4) /HPF Ur Squamous Epith Cells TRACE /LPF Urine Bacteria TRACE /LPF <NITHYA Fishman - Last Filed: 11/13/21 21:49> Critical Care Time Critical Care Time Critical Care Time: No <NITHYA Fishman - Last Filed: 11/13/21 21:49> Discharge Plan Discharge Clinical Impression: Acute right flank pain <Mayo Pike MD - Last Filed: 11/13/21 19:19> Patient Disposition: Home, Self-Care <Mayo Pike MD - Last Filed: 11/13/21 19:19> Instructions: Flank Pain (ED) <Mayo Pike MD - Last Filed: 11/13/21 19:19> Additional Instructions: Take your medications as prescribed. If you were prescribed antibiotics today, it is important that you take your medication to their entirety, do not skip any doses, do not finish them early. Follow-up with your primary care provider this week. Return to the emergency department with new or worsening symptoms. Such as worsening pain, blood in urine, fevers, chills, nausea, vomiting, abdominal pain, chest pain, shortness of breath, weakness, lethargy. In case of emergency call 911 <Mayo Pike MD - Last Filed: 11/13/21 19:19> Prescriptions: New cyclobenzaprine 5 mg tablet 5 mg PO BEDTIME PRN (Reason: muscle spasm) Qty: 6 0RF lidocaine 5 % adhesive patch,medicated 1 patch topical DAILY PRN (Reason: pain) Qty: 15 0RF Rx Instructions: leave on most painful area for up to 12 hrs No Action levothyroxine 125 mcg tablet 125 mcg PO DAILY 0RF metoprolol tartrate 25 mg tablet 25 mg PO DAILY 0RF <Mayo Pike MD - Last Filed: 11/13/21 19:19> Referrals: Hung Rios MD [Physician] - 2 days Zuhair Singh MD [Primary Care Provider] - 2 days Rick Fall MD [Physician] - 2 days <Mayo Pike MD - Last Filed: 11/13/21 19:19>
[2021-11-13] MEDS: 0.9 % Sodium Chloride 500 ML IV (19:38)
[2021-11-13] MEDS: Ketorolac Tromethamine 15 MG/ML VIAL 30 MG IVPUSH (19:40)
[2021-11-13] MEDS: Metoprolol Tartrate 25 MG TABLET PO (19:41)
[2021-11-13] MEDS: Lidocaine 4 % Patch ADH..PATCH 1 PATCH TRANSDERMA (22:12)
== END 2021-11-13 22:13 | disposition home or self-care (01) ==
PROVIDERS: Emergency Provider Emergency Medicine; PCP Internal Medicine
DX: R10.9 Unspecified abdominal pain (principal); I10 Essential (primary) hypertension; Z87.442 Personal history of urinary calculi
CPT/HCPCS: 36415; 74176; 80048; 81001; 85025; 87086; 96361; 96374; 99284; J1885

== ENCOUNTER → 2021-11-26 09:38 | Outpatient (BNVA) | payer MEDICARE, SELFPAY | PROVIDERS: PCP Internal Medicine | DX: N28.1 Cyst of kidney, acquired (principal) | CPT/HCPCS: 99212 ==

== ENCOUNTER 2022-04-30 11:58 | Outpatient (REF) | payer MEDICARE, SELFPAY ==
--- NOTE | ~2022-04-30 | US_ITS ---
EXAMINATION: US RETROPERITONEAL LIMITED (RENAL ONLY) CLINICAL INFORMATION: Cyst of kidney, acquired. COMPARISON: CT abdomen and pelvis 11/13/2021. Ultrasound abdomen 06/07/2020. Renal ultrasound 08/18/2019. X-ray abdomen KUB 08/03/2019. TECHNIQUE: Real-time imaging of the kidneys. FINDINGS: RIGHT KIDNEY: 6.6 x 4.0 x 4.9 cm (SAG x AP x TRV). The kidney is normal in size, contour, and echogenicity there is mild cortical thinning.. There are no echogenic renal calculi or caliectasis. There is an anechoic cyst in the upper pole measuring 1.7 x 1.6 x 1.7 cm in lower pole measuring 1.4 x 1.4 x 1.3 cm. LEFT KIDNEY: 10.5 x 4.5 x 4.1 cm (SAG x AP x TRV). The kidney is normal in size, contour, and echogenicity. Renal cortical thickness is normal. No renal calculi or hydronephrosis. There is an anechoic cyst in lateral lower pole measuring 1.7 x 1.1 x 1.8 cm and medial lower pole measuring 1.1 x 0.9 x 0.8 cm. There is no caliectasis. US/US renal BI IMPRESSION: Bilateral renal cysts. No echogenic renal calculi. There is mild right cortical thinning.
== END 2022-04-30 11:59 | disposition home or self-care (01) ==
LOC: HO.US 11:58
DX: N28.1 Cyst of kidney, acquired (principal)
CPT/HCPCS: 76775

== ENCOUNTER → 2022-05-30 10:36 | Outpatient (BNVA) | payer MEDICARE, SELFPAY | PROVIDERS: PCP Internal Medicine; Visit Provider Urology | DX: N28.1 Cyst of kidney, acquired (principal) | CPT/HCPCS: Q3014 ==

== ENCOUNTER 2022-07-01 12:25 | Outpatient (REF) | payer MEDICARE, SELFPAY ==
[2022-07-01 13:43] LABS: MANUAL DIFF FLAG NO
[2022-07-01 13:50] LABS: Basophils Absolute Auto 0.1 X10*3/uL (0.0-0.2); Basophils Percent Auto 0.8 % (0-2); Eosinophils Percent Auto 0.7 % (0-4); Hematocrit 40.7 % (37.0-47.0); Hemoglobin 12.8 g/dl (12.0-16.0); Imm Gran Abs Auto 0.03 X10*3/uL (0.00-0.03); Imm Gran Pct Auto 0.5 % (0.0-0.4); Lymphocytes Absolute Auto 1.3 X10*3/uL (1.2-4.9); Lymphocytes Percent Auto 22.4 % (20-40); Mean Corpuscular HGB Conc 31.4 g/dl (31.0-35.0); Mean Corpuscular Volume 82.7 fL (80.0-98.0); Mean Platelet Volume 10.1 fL (9.4-12.3); Monocytes Absolute Auto 0.4 X10*3/uL (0.1-1.2); Monocytes Percent Auto 7.2 % (2-11); Neutrophils Absolute Auto 4.1 x10*3/uL (2.0-8.3); Neutrophils Percent Auto 68.4 % (45-73); Platelet Count 274 X10*3/uL (160-400); Red Blood Count 4.92 X10*6/uL (4.20-5.50); Red Cell Distribution Width 16.2 % (11.0-16.0)
[2022-07-01 14:21] LABS: Alanine Aminotransferase 6 U/L (0-31); Albumin Level 3.9 g/dL (3.5-5.0); Alkaline Phosphatase 72 U/L (39-117); Anion Gap 17 (12-20); Aspartate Amino Transferase 10 U/L (5-31); Bilirubin Total 0.6 mg/dL (0.0-1.0); Blood Urea Nitrogen 7 mg/dL (9-16); C Reactive Protein 1.82 mg/dL (< or = 0.50); Calcium 9.5 mg/dL (8.4-10.2); Carbon Dioxide 24 mmol/L (22-29); Chloride 104 mmol/L (96-108); Cholesterol 161 mg/dL; Estimated Glomerular Filt Rate > 60; Glucose Random 124 mg/dL (60-115); Lipase 40 U/L (8-78); Potassium 3.7 mmol/L (3.3-5.1); Sodium 141 mmol/L (135-145); Total Protein 6.6 g/dL (6.5-8.0)
[2022-07-01 14:22] LABS: Free T4 (Free Thyroxine) 1.18 ng/dL (0.71-1.85); Thyroid Stimulating Hormone 0.23 uIU/mL (0.32-4.0); Vitamin D 25-OH Total 15.1 ng/mL (>30)
[2022-07-01 14:48] LABS: Vitamin B12 323 pg/mL (200-900)
[2022-07-03 14:57] LABS: Calcium (PTHI) 9.6 mg/dL (8.6-10.4); PTHI 90 pg/mL (16-77)
== END 2022-07-01 12:26 | disposition home or self-care (01) ==
LOC: HO.10HDL 12:25
PROVIDERS: Visit Provider Internal Medicine
DX: R63.4 Abnormal weight loss (principal); I10 Essential (primary) hypertension; E03.9 Hypothyroidism, unspecified; R10.9 Unspecified abdominal pain; E55.9 Vitamin D deficiency, unspecified
CPT/HCPCS: 36415; 80053; 82306; 82465; 82607; 83690; 83970; 84439; 84443; 85025; 86140

== ENCOUNTER 2023-03-10 08:23 | Emergency (ER) | payer MEDICARE, SELFPAY ==
--- NOTE | ~2023-03-10 | CT_ITS ---
Unenhanced CT of the head, facial bones and cervical spine INDICATION: Fall, head strike, pain and facial bruising TECHNIQUE: Continuous helical imaging obtained through the head, facial bones and cervical spine without IV contrast. Reconstructed images performed in the coronal and sagittal planes. Total DLP: 1499 mGycm. Head: Atrophy and periventricular white matter changes. Vascular calcifications. No intracranial hemorrhage, extra-axial fluid collections cranial fractures or significant soft tissue hematomas after trauma. No evolving infarct, mass lesion, mass effect or midline shift. Multiple punctate frontal skin hyperdensities. Lens extractions have been performed. Facial bones: Motion limits evaluation of the bony structures, particularly the left mandible. However on accompanying cervical spine images, left mandible appears intact. There does not appear to be significant surrounding the soft tissue injury/hematoma. Temporomandibular joint are narrowed but intact. Orbital and maxillary crowley, zygomatic arches and other bony structures are without acute findings. Nonspecific lymph nodes are seen. Tongue, soft palate, epiglottis, parotid and submandibular glands are unremarkable. Visualized nasopharynx and oropharynx are unremarkable. Sinuses and mastoids are clear. Cervical spine: Cervical lordotic straightening, multilevel mild vertebral body height losses, multilevel disc space narrowings, spurring, neuroforaminal narrowings are seen. Multilevel mild spinal canal narrowings secondary with spurring, most severe resulting in moderate thecal sac compression at C6-C7. Retropharyngeal and laryngeal structures within normal limits. Asymmetrically dense left arytenoid cartilage. Surgical clips in the thyroid bed. Nuchal calcifications. CT/CT facial bones wo IV con IMPRESSION: Chronic small vessel ischemia and volume loss. No acute intracranial or bony pathology status post fall. Cervical lordotic straightening and multilevel degenerative changes.
--- NOTE | ~2023-03-10 | XR_ITS ---
EXAMINATION: XR KNEE, HAND, LEFT CLINICAL INFORMATION: Bruising and swelling after fall COMPARISON: None available. TECHNIQUE: Four views of the left knee and left hand. FINDINGS: Left knee: Significant demineralization. Patellofemoral and knee joints space narrowings and osteophytes. No fracture, dislocation or joint effusion. Vascular calcifications. Left hand: Mild degenerative changes first carpometacarpal joint. Diffuse interphalangeal joint space narrowings. Calcifications adjacent to the distal aspect of the first and second proximal phalanges. No fracture or dislocation. XR/XR hand wrist LT IMPRESSION: Degenerative type changes. No acute bony pathology left hand and left knee
--- NOTE | ~2023-03-10 | XR_ITS ---
EXAMINATION: XR KNEE, HAND, LEFT CLINICAL INFORMATION: Bruising and swelling after fall COMPARISON: None available. TECHNIQUE: Four views of the left knee and left hand. FINDINGS: Left knee: Significant demineralization. Patellofemoral and knee joints space narrowings and osteophytes. No fracture, dislocation or joint effusion. Vascular calcifications. Left hand: Mild degenerative changes first carpometacarpal joint. Diffuse interphalangeal joint space narrowings. Calcifications adjacent to the distal aspect of the first and second proximal phalanges. No fracture or dislocation. XR/XR knee LT 4V IMPRESSION: Degenerative type changes. No acute bony pathology left hand and left knee
--- NOTE | ~2023-03-10 | CT_ITS ---
Unenhanced CT of the head, facial bones and cervical spine INDICATION: Fall, head strike, pain and facial bruising TECHNIQUE: Continuous helical imaging obtained through the head, facial bones and cervical spine without IV contrast. Reconstructed images performed in the coronal and sagittal planes. Total DLP: 1499 mGycm. Head: Atrophy and periventricular white matter changes. Vascular calcifications. No intracranial hemorrhage, extra-axial fluid collections cranial fractures or significant soft tissue hematomas after trauma. No evolving infarct, mass lesion, mass effect or midline shift. Multiple punctate frontal skin hyperdensities. Lens extractions have been performed. Facial bones: Motion limits evaluation of the bony structures, particularly the left mandible. However on accompanying cervical spine images, left mandible appears intact. There does not appear to be significant surrounding the soft tissue injury/hematoma. Temporomandibular joint are narrowed but intact. Orbital and maxillary crowley, zygomatic arches and other bony structures are without acute findings. Nonspecific lymph nodes are seen. Tongue, soft palate, epiglottis, parotid and submandibular glands are unremarkable. Visualized nasopharynx and oropharynx are unremarkable. Sinuses and mastoids are clear. Cervical spine: Cervical lordotic straightening, multilevel mild vertebral body height losses, multilevel disc space narrowings, spurring, neuroforaminal narrowings are seen. Multilevel mild spinal canal narrowings secondary with spurring, most severe resulting in moderate thecal sac compression at C6-C7. Retropharyngeal and laryngeal structures within normal limits. Asymmetrically dense left arytenoid cartilage. Surgical clips in the thyroid bed. Nuchal calcifications. CT/CT cervical spine wo IV con IMPRESSION: Chronic small vessel ischemia and volume loss. No acute intracranial or bony pathology status post fall. Cervical lordotic straightening and multilevel degenerative changes.
[2023-03-10 08:26] VITALS: BP 153/83; PULSE 90; RESP 19; TEMP 36.6; O2SAT 99; BMI 35.2
--- NOTE | 2023-03-10 08:37 | ED.GENADULT ---
HPI - General Adult General Chief complaint: Fall Stated complaint: Fall 03/09/23 Time Seen by Provider: 03/10/23 08:37 Source: patient and family (patient's son) Mode of arrival: ambulatory Limitations: no limitations History of Present Illness HPI narrative: Patient is an 82 year old assigned female at with a history of arthritis presenting to the emergency department today with left hand pain, left elbow pain, and nose pain after a fall. Patient states that yesterday afternoon she tripped and fell, hitting her face, left hand, and left knee. Patient states that she did not lose consciousness with the incident. Patient denies any dizziness, lightheadedness, abdominal pain, nausea, vomiting, fever, chills, blurry vision, double vision, loss of vision, chest pain, difficulty breathing, shortness of breath, back pain, night sweats, pain with urination, increased urinary frequency, increased urinary urgency, blood in her urine or stool, syncope or a near syncopal episode, bowel incontinence, bladder incontinence, bowel retention, bladder retention, or any other complaints at this time. Onset (ago): day(s) (1) Severity: mild Severity scale (1-10): 3 Quality: aching and dull Pain Consistency: constant Relieving factors: none Exacerbating factors: movement Associated symptoms: denies other symptoms Treatments prior to arrival: none Related Data Home Medications Medication Instructions Recorded Confirmed levothyroxine 125 mcg tablet 125 mcg PO DAILY 06/29/20 06/29/20 metoprolol tartrate 25 mg tablet 25 mg PO DAILY 06/29/20 06/29/20 Previous Rx's Medication Instructions Recorded cyclobenzaprine 5 mg tablet 5 mg PO BEDTIME PRN muscle spasm 11/13/21 #6 tabs lidocaine 5 % topical patch 1 patch topical DAILY PRN pain #15 11/13/21 ea Allergies Allergy/AdvReac Type Severity Reaction Status Date / Time No Known Allergies Allergy Verified 05/30/22 10:37 [No Known Allergies*] Review of Systems Constitutional: Constitutional: Reports no additional constitutional complaints, Denies chills, Denies fever(s) and Denies night sweats Eyes: Eyes: Reports no additional eye complaints, Denies blurry vision, Denies change in vision, Denies diplopia, Denies eye discharge, Denies loss of vision and Denies eye pain ENT: Denies dizziness and Reports nose pain Cardiovascular: Cardiovascular: Reports no additional cardiovascular complaints, Denies chest pain, Denies lightheadedness, Denies Loss of Consciousness and Denies dyspnea Respiratory: Respiratory: Reports no additional respiratory complaints and Denies dyspnea Gastrointestinal: Gastrointestinal: Reports no additional gastrointestinal complaints, Denies abdominal pain, Denies melena, Denies hematochezia, Denies change in bowel habits and Denies change in stool character Genitourinary: Genitourinary: Denies hematuria, Denies urinary frequency, Denies dysuria, Denies urinary incontinence, Denies urinary hesitancy and Denies urinary urgency Musculoskeletal: Musculoskeletal: Reports no additional musculoskeletal complaints, Denies numbness and Denies tingling Comments: left knee pain, left hand pain Neurologic: Denies dizziness, Denies loss of vision, Denies numbness and Denies tingling Psychiatric: Psychiatric: Reports no additional psychiatric complaints Endocrine: Endocrine: Reports no additional endocrine complaints Hematologic/Lymphatic: Hematologic/Lymphatic: Reports no additional hematologic/lymphatic complaints Allergic/Immunologic: Allergic/Immunologic: Reports no additional allergic/immunologic complaints PMF Past Medical History Attestation statement: The following information was validated with the patient. (all information validated with the patient's son) Source: old records reviewed, obtained from family (patient's son) and nursing notes reviewed Medical History Anal pain Arthritis Arthritis of knee Hard of hearing Hypertension Hypothyroidism (acquired) Kidney stones Renal cyst, acquired Shoulder pain Thyroid disease Surgical History History of lithotripsy (~08/15/16) History of thyroidectomy Family History Family History Father Myocardial infarct Mother Myocardial infarct Social History Social History Alcohol intake: never Smoked in Last 30 Days: No Use of substances other than those prescribed or required for medical reasons: No Advance Directives: Yes Advance Directives Information Provided: Yes Advance Directives on File: No Physical Exam ED Vital Signs: Vital Signs - 24 hr 03/10/23 08:26 03/10/23 10:06 Temperature 98 F Pulse Rate 90 78 Respiratory Rate 19 18 Blood Pressure 153/83 H 156/53 H Pulse Oximetry 99 95 Oxygen Delivery Method Room Air BMI result Body Mass Index 35.2 Const General: cooperative, no acute distress, alert and awake Nutritional Appearance: well nourished Orientation/consciousness: patient oriented x3 Limitations: no limitations HENMT Ears: hearing grossly normal bilaterally and external ears normal General nose exam: no nasal discharge noted, no epistaxis and Other nasal findings present (bruising present to the bridge of the nose) Face and sinus: No abrasion, No laceration and Yes other Mouth: Normal oral and palatal mucosa present, no drooling and no muffled voice Eyes Other: minimal bilateral lower lid bruising present Conjunctivae: conjunctivae normal Pupils: Equal, round and reactive pupils present EOM: EOMs intact bilaterally Neck Neck: Yes normal visual inspection, Yes full ROM and Yes no lymphadenopathy Chest Chest palpation & inspection: normal inspection of the chest Resp Effort & Inspection: normal respiratory effort and able to speak in complete sentences GI Inspection: Yes normal to inspection Neuro General: patient oriented x3 and moves all extremities Cranial nerves: Yes Equal, round and reactive pupils present Cognition (Neuro): normal cognition Motor exam (neuro): 5/5 motor strength present throughout Sensory Exam: Normal double simultaneous stimulation for sensation Coordination: [id number] test normal Extrem Other: swelling and bruising present to the dorsal aspect of the left hand General: Yes full ROM and Yes capillary refill normal Psych Appearance: grossly normal Mental Status: mental status grossly normal Affect: normal affect Attitude: cooperative Thought process: Normal thought process present Thought content: Normal thought content present Insight: Good insight present (Psych) Medications Administered Discontinued Medications Generic Name Dose Route Start Last Admin Trade Name Amrita PRN Reason Stop Dose Admin Acetaminophen 650 mg 03/10/23 11:13 03/10/23 11:26 Acetaminophen 325 Mg Tablet PO 03/10/23 11:14 650 mg ONCE ONE Administration Medical Decision Making Medical Decision Making [facility] Narrative: Patient is an 82 year old assigned female at with a history of osteoarthritis presenting to the emergency department today with nasal pain, left hand pain, and left knee pain. Patient's physical exam was as noted in the physical exam portion of this chart. Patient's left hand and left knee x-rays showed no acute process. Patient's head, c-spine, and facial CTs showed no acute process. Given the amount of swelling present to the left hand, I recommended the patient follow up with an orthopedic provider. Given the bruising present to the bridge of the nose and under the bilateral eyes, I recommended the patient also follow up with an ENT for further examination of the nose. I explained my physical exam findings as well as all test results to the patient and the patient's son. I answered all questions asked by the patient and the patient's son. I stressed the importance of the patient taking her medication as prescribed. I stressed the importance of the patient following up with her primary care provider, an ENT, and an orthopedic provider. I stressed the importance of the patient returning to the emergency department immediately if her symptoms were to worsen or if she were to develop any dizziness, shortness of breath, difficulty breathing, chest pain, blurry vision, loss of vision, nausea, vomiting, abdominal pain, fever, chills, back pain, or any other complaints. Patient and the patient's son verbalized agreement and understanding with this treatment plan and discharge. Differential Diagnosis Differential Diagnoses: The differential diagnosis associated with the presentation includes Nasal fracture Nasal injury Nasal pain Fall Mechanical fall Left hand pain Left hand strain Left hand sprain Left hand fracture Left knee pain Left knee strain Left knee sprain Left knee fracture Admission/Observation Consideration of admission/observation: Escalation of care including admission/observation considered Patient would have been admitted to the hospital had her work up had any findings where hospital admission was appropriate and her clinical presentation warranted hospital admission. Independent Interpretation I performed an independent interpretation of an: Plain X-Ray and CT Scan Interpretation: My interpretation is in agreement with the radiologist's impression of these imaging studies. EXAMINATION: XR KNEE, HAND, LEFT CLINICAL INFORMATION: Bruising and swelling after fall? COMPARISON: None available.? TECHNIQUE: Four views of the left knee and left hand. FINDINGS: Left knee: Significant demineralization. Patellofemoral and knee joints space narrowings and osteophytes. No fracture, dislocation or joint effusion. Vascular calcifications. Left hand: Mild degenerative changes first carpometacarpal joint. Diffuse interphalangeal joint space narrowings. Calcifications adjacent to the distal aspect of the first and second proximal phalanges. No fracture or dislocation. XR/XR hand wrist LT IMPRESSION: Degenerative type changes. No acute bony pathology left hand and left knee Dictated By: Neli Serrano MD Signed By: Electronically signed by Neli Serrano MD 03/10/[address] of the head, facial bones and cervical spine INDICATION: Fall, head strike, pain and facial bruising TECHNIQUE: Continuous helical imaging obtained through the head, facial bones and cervical spine without IV contrast. Reconstructed images performed in the coronal and sagittal planes. Total DLP: 1499 mGycm. Head: Atrophy and periventricular white matter changes. Vascular calcifications. No intracranial hemorrhage, extra-axial fluid collections cranial fractures or significant soft tissue hematomas after trauma. No evolving infarct, mass lesion, mass effect or midline shift. Multiple punctate frontal skin hyperdensities. Lens extractions have been performed. Facial bones: Motion limits evaluation of the bony structures, particularly the left mandible. However on accompanying cervical spine images, left mandible appears intact. There does not appear to be significant surrounding the soft tissue injury/hematoma. Temporomandibular joint are narrowed but intact. Orbital and maxillary crowley, zygomatic arches and other bony structures are without acute findings. Nonspecific lymph nodes are seen. Tongue, soft palate, epiglottis, parotid and submandibular glands are unremarkable. Visualized nasopharynx and oropharynx are unremarkable. Sinuses and mastoids are clear. ? Cervical spine: Cervical lordotic straightening, multilevel mild vertebral body height losses, multilevel disc space narrowings, spurring, neuroforaminal narrowings are seen. Multilevel mild spinal canal narrowings secondary with spurring, most severe resulting in moderate thecal sac compression at C6-C7. Retropharyngeal and laryngeal structures within normal limits. Asymmetrically dense left arytenoid cartilage. Surgical clips in the thyroid bed. Nuchal calcifications. CT/CT cervical spine wo IV con IMPRESSION: Chronic small vessel ischemia and volume loss. No acute intracranial or bony pathology status post fall. Cervical lordotic straightening and multilevel degenerative changes. Dictated By: Neli Serrano MD Signed By: Electronically signed by Neli Serrano MD 03/10/23 5962 Radiology Impression Discussion of test interpretation with radiology: I have reviewed the radiologist's reading. Independent Historian Clinical information obtained from an independent historian. History obtained from or confirmed by: Other (patient's son provided additional history and confirmed the history provided by the patient) Prescription Management I considered prescription management with: Pain Medication (patient was offered pain medication prescription however, she declined.) Discharge Plan Discharge Clinical Impression: Hand pain, Nasal pain, Fall Patient Disposition: Home, Self-Care Instructions: Fall Prevention for Older Adults (ED), Contusion in Adults (ED) Additional Instructions: Follow up with your primary care provider, an ENT for your nose injury, and an orthopedic provider for your left hand injury. Return to the emergency department immediately if your symptoms worsen or if you develop any dizziness, shortness of breath, difficulty breathing, chest pain, blurry vision, loss of vision, nausea, vomiting, abdominal pain, fever, chills, back pain, or any other complaints. Prescriptions: No Action cyclobenzaprine 5 mg tablet 5 mg PO BEDTIME PRN (Reason: muscle spasm) Qty: 6 0RF lidocaine 5 % adhesive patch,medicated 1 patch topical DAILY PRN (Reason: pain) Qty: 15 0RF Rx Instructions: leave on most painful area for up to 12 hrs levothyroxine 125 mcg tablet 125 mcg PO DAILY metoprolol tartrate 25 mg tablet 25 mg PO DAILY Referrals: [facility] [Provider Group] (Call to establish and follow up with an orthopedic provider. ) Zuhair Singh MD [Primary Care Provider] - Dwaine Mckenzie [Physician] - (Call to establish and follow up with an ENT specialist.) Interventions: ED Discharge Assessment Last Done: 03/10/23 11:56 Discharge Date/Time: 03/10/23 11:57 Print Language: Tamazight
--- NOTE | 2023-03-10 08:54 | PC.NURSE ---
Pt arrived with son at bedside, stating pt fell yesterday. Son is not sure how pt fell but is thinking she may have tripped coming out of the bathroom. Pt is unable to remember what happened, and doesn't remember being dizzy or passing out prior to fall. Left hand/wrist swollen, pain when moving. Bruising noted on Bilat eyes, with nose swelling. A/Ox4. Denies any other neuro symptoms, denies being on thinners.
[2023-03-10 10:06] VITALS: BP 156/53; PULSE 78; RESP 18; O2SAT 95
[2023-03-10] MEDS: Acetaminophen 325 MG TABLET 650 MG PO (11:26)
== END 2023-03-10 11:57 | disposition home or self-care (01) ==
PROVIDERS: Emergency Provider Emergency Medicine; PCP Internal Medicine
DX: S89.91XA Unspecified injury of right lower leg, initial encounter (principal); S69.92XA Unspecified injury of left wrist, hand and finger(s), initial encounter; S69.91XA Unspecified injury of right wrist, hand and finger(s), initial encounter; J34.89 Other specified disorders of nose and nasal sinuses; M54.2 Cervicalgia; R51.9 Headache, unspecified; M25.562 Pain in left knee; M25.561 Pain in right knee; W01.0XXA Fall on same level from slipping, tripping and stumbling without subsequent striking against object, initial encounter; Y93.9 Activity, unspecified; Y92.9 Unspecified place or not applicable; Y99.9 Unspecified external cause status; Z79.899 Other long term (current) drug therapy
CPT/HCPCS: 70450; 70486; 72125; 73110; 73130; 73564; 99284

== ENCOUNTER 2023-05-01 09:34 | Outpatient (REF) | payer MEDICARE, SELFPAY ==
--- NOTE | ~2023-05-01 | US_ITS ---
EXAMINATION: US RETROPERITONEAL LIMITED (RENAL ONLY) CLINICAL INFORMATION: Cyst of kidney, acquired. COMPARISON: Renal ultrasound 04/30/2022. CT abdomen and pelvis 11/13/2021. Ultrasound abdomen 06/07/2020. X-ray abdomen KUB 08/03/2019. TECHNIQUE: Real-time imaging of the kidneys. Limited visualization due to bowel gas. FINDINGS: RIGHT KIDNEY: 6.4 x 4.1 x 4.5 cm (SAG x AP x TRV). Diffuse renal cortical thinning. Atrophic right kidney. No hydronephrosis. No renal calculi. Limited visualization. A 2.0 x 1.8 x 1.6 cm upper pole cyst measured 1.7 x 1.6 x 1.7 cm on 04/30/2022. A lower pole 1.3 x 1.5 x 1.4 cm cyst measured 1.4 x 1.4 x 1.3 cm on 04/30/2022. These cysts are difficult to characterize today due to limited visualization. LEFT KIDNEY: 11.6 x 4.8 x 3.4 cm (SAG x AP x TRV). A 1.3 x 1.3 x 1.4 cm lower pole cyst is difficult to characterize today due to limited visualization, previously 1.7 x 1.1 x 1.8 cm. No hydronephrosis. No renal calculi. Limited visualization. US/US renal BI IMPRESSION: 1. Atrophic right kidney with diffuse renal cortical thinning. 2. No renal calculi. No hydronephrosis. 3. Limited visualization of bilateral renal cysts as detailed above.
== END 2023-05-01 09:35 | disposition home or self-care (01) ==
LOC: HO.US 09:34
PROVIDERS: PCP Internal Medicine; Visit Provider Urology
DX: N28.1 Cyst of kidney, acquired (principal)
CPT/HCPCS: 76775

== ENCOUNTER 2023-05-12 10:19 | Outpatient (AMB) | payer MEDICARE, SELFPAY ==
--- NOTE | 2023-05-12 10:19 | A.OFFVIS_ITS ---
Intake Intake Visit Reasons: 1Y US(set) Intake Note: Patient is present for Follow Up Ultrasound Urology Med: None Antibiotic Allergy:None Blood Thinner: None Pharmacy: [facility] Allergies No Known Allergies [No Known Allergies*] Allergy (Verified 05/30/22 10:37) HPI HPI Comments History of Present Illness Details Heidi is a pleasant [place] female. She is a patient Dr. Singh. She seen for the following urologic conditions - renal cyst - nephrolithiasis No stones seen on current imaging Has done well for 8 years Creatinine 0.82 P.r.n. follow-up Nephrolithiasis Prior treatment. Last ESWL in 2015 No stone since Imaging - 06/05 renal ultrasound bilateral renal cyst 2 on each side 2 cm each, no stones - 06/06 renal ultrasound atrophic right kidney, bilateral cysts, no stones PFSH Medical History Anal pain Arthritis Arthritis of knee Hard of hearing Hypertension Hypothyroidism (acquired) Kidney stones Renal cyst, acquired Shoulder pain Thyroid disease Surgical History History of lithotripsy (~08/15/16) History of thyroidectomy Family History Father Myocardial infarct Mother Myocardial infarct Social History Alcohol intake: never Review of Systems Const Denies chills and Denies fever(s) Card Reports no additional complaints and Denies syncope Resp Denies cough GI Denies abdominal pain and Denies heartburn Reports as per HPI and Denies change in libido Neuro Denies syncope Psych Denies change in libido Endo Denies change in libido Physical Exam Const General: cooperative, healthy appearing, comfortable and no acute distress Orientation/consciousness: patient oriented x3 HEENT Face and sinus: Yes normal facial exam Mouth: moist mucous membranes Neck Neck: Yes normal visual inspection, Yes full ROM and Yes trachea midline Chest Chest palpation & inspection: normal inspection of the chest Resp Effort & Inspection: normal respiratory effort, able to speak in complete sentences and no respiratory distress GI Inspection: Yes normal to inspection Back/Spine/Pelvis Cervical Spine: normal cervical lordosis Thoracic/Lumbar Spine: thoracic and lumbar spine normal to inspection Skin General skin exam: no rashes or lesions noted Neuro General: patient oriented x3, gait normal, tone normal and moves all extremities Extrem General: Yes normal to inspection and Yes capillary refill normal Assessment & Plan Assessment & Plan (1) Renal cyst, acquired: Code(s): N28.1 - Cyst of kidney, acquired Plan P.r.n. follow-up Patient Instructions: Imaging studies, laboratory and physical exam results were discussed and reviewed in detail. No major barriers to patient understanding were identified. An opportunity to ask questions regarding the treatment plan was provided. All questions were answered. The patient expressed understanding and agreement with the above treatment plan. The patient is aware they should contact our office by phone for worsening of their current condition or the appearance of new urologic symptoms. Compliance is encouraged with any medications and followup testing that is ordered. It is a privilege to participate in the urologic care of your patient. If you have any questions or concerns regarding treatment for the above conditions, or other urologic issues, please do not hesitate to contact me. The office telephone contact is [phone]. This note is constructed using voice recognition software. While every effort has been made to ensure accuracy boiler attendant errors may have been included. Yours sincerely, Dr Hung Rios MD, [facility] - Urology Providers of Expert, Compassionate Care for the Genitourinary System Coding Level of Care Code Est Pt Level 4 (32282) Diagnoses Renal cyst, acquired N28.1
== END 2023-05-12 10:27 | disposition home or self-care (01) ==
LOC: HO.HUSH 10:19
PROVIDERS: PCP Internal Medicine; Visit Provider Urology
DX: N28.1 Cyst of kidney, acquired (principal)
CPT/HCPCS: 99213

== ENCOUNTER → 2023-05-12 10:19 | Outpatient (BNVA) | payer MEDICARE, SELFPAY | PROVIDERS: PCP Internal Medicine; Visit Provider Urology ==

== ENCOUNTER 2023-05-12 10:29 | Outpatient (REF) | payer MEDICARE, SELFPAY ==
[2023-05-12 13:17] LABS: MANUAL DIFF FLAG NO
[2023-05-12 13:20] LABS: Basophils Absolute Auto 0.1 X10*3/uL (0.0-0.2); Basophils Percent Auto 0.6 % (0-2); Eosinophils Absolute Auto 0.1 X10*3/uL (0.0-0.4); Eosinophils Percent Auto 1.4 % (0-4); Hematocrit 43.1 % (37.0-47.0); Hemoglobin 13.7 g/dl (12.0-16.0); Imm Gran Abs Auto 0.02 X10*3/uL (0.00-0.03); Imm Gran Pct Auto 0.3 % (0.0-0.4); Lymphocytes Percent Auto 25.3 % (20-40); Mean Corpuscular HGB Conc 31.8 g/dl (31.0-35.0); Mean Corpuscular Hemoglobin 27.5 pg (27.0-33.0); Mean Corpuscular Volume 86.4 fL (80.0-98.0); Monocytes Absolute Auto 0.5 X10*3/uL (0.1-1.2); Monocytes Percent Auto 6.9 % (2-11); Neutrophils Percent Auto 65.5 % (45-73); Platelet Count 243 X10*3/uL (160-400); Red Blood Count 4.99 X10*6/uL (4.20-5.50); Red Cell Distribution Width 16.1 % (11.0-16.0); White Blood Count 7.7 X10*3/uL (4.8-10.8)
[2023-05-12 14:01] LABS: Alanine Aminotransferase 10 U/L (0-31); Albumin Level 4.2 g/dL (3.5-5.0); Alkaline Phosphatase 64 U/L (39-117); Anion Gap 11 (12-20); Aspartate Amino Transferase 14 U/L (5-31); Bilirubin Total 0.8 mg/dL (0.0-1.0); Blood Urea Nitrogen 11 mg/dL (9-16); Calcium 10.7 mg/dL (8.4-10.2); Carbon Dioxide 26 mmol/L (22-29); Chloride 108 mmol/L (96-108); Estimated Glomerular Filt Rate > 60; Glucose Random 99 mg/dL (60-115); Potassium 4.4 mmol/L (3.3-5.1); Sodium 141 mmol/L (135-145); Total Protein 7.4 g/dL (6.5-8.0)
[2023-05-12 14:22] LABS: Free T4 (Free Thyroxine) 1.11 ng/dL (0.71-1.85); Thyroid Stimulating Hormone 1.04 uIU/mL (0.32-4.0); Vitamin D 25-OH Total 21.9 ng/mL (>30)
== END 2023-05-12 10:30 | disposition home or self-care (01) ==
LOC: HO.10HDL 10:29
PROVIDERS: Visit Provider Internal Medicine
DX: I12.9 Hypertensive chronic kidney disease with stage 1 through stage 4 chronic kidney disease, or unspecified chronic kidney disease (principal); E78.5 Hyperlipidemia, unspecified; E55.9 Vitamin D deficiency, unspecified; N18.9 Chronic kidney disease, unspecified
CPT/HCPCS: 36415; 80053; 82306; 84439; 84443; 85025

== ENCOUNTER 2024-04-01 13:29 | Outpatient (REF) | payer MEDICARE, SELFPAY ==
--- NOTE | ~2024-04-01 | XR_ITS ---
EXAMINATION: XR HAND, LEFT CLINICAL INFORMATION: Pain. COMPARISON: Left hand and wrist radiographs dated 03/10/2023. TECHNIQUE: PA, lateral, and oblique views of the left hand. FINDINGS: No acute fracture or dislocation. Normal carpal alignment. Joint space narrowing with marginal osteophytes at the radiocarpal joint as well as at the triscaphe and first carpometacarpal joints. [id number] joint space narrowing with marginal osteophytes throughout the metacarpophalangeal and interphalangeal joints. No osseous erosion or periarticular osteopenia. No abnormal soft tissue calcification. 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
[2024-04-01 13:49] LABS: MANUAL DIFF FLAG NO
[2024-04-01 14:05] LABS: Basophils Absolute Auto 0.1 X10*3/uL (0.0-0.2); Basophils Percent Auto 1.1 % (0-2); Eosinophils Absolute Auto 0.2 X10*3/uL (0.0-0.4); Eosinophils Percent Auto 2.7 % (0-4); Hematocrit 43.5 % (37.0-47.0); Hemoglobin 14.2 g/dl (12.0-16.0); Imm Gran Abs Auto 0.02 X10*3/uL (0.00-0.03); Imm Gran Pct Auto 0.3 % (0.0-0.4); Lymphocytes Absolute Auto 1.9 X10*3/uL (1.2-4.9); Lymphocytes Percent Auto 29.9 % (20-40); Mean Corpuscular HGB Conc 32.6 g/dl (31.0-35.0); Mean Corpuscular Hemoglobin 28.3 pg (27.0-33.0); Mean Corpuscular Volume 86.7 fL (80.0-98.0); Mean Platelet Volume 9.6 fL (9.4-12.3); Monocytes Absolute Auto 0.5 X10*3/uL (0.1-1.2); Monocytes Percent Auto 8.3 % (2-11); Neutrophils Absolute Auto 3.6 x10*3/uL (2.0-8.3); Neutrophils Percent Auto 57.7 % (45-73); Platelet Count 226 X10*3/uL (160-400); Red Blood Count 5.02 X10*6/uL (4.20-5.50); Red Cell Distribution Width 14.8 % (11.0-16.0); White Blood Count 6.2 X10*3/uL (4.8-10.8)
[2024-04-02 01:34] LABS: Alanine Aminotransferase 14 U/L (0-31); Albumin Level 4.2 g/dL (3.5-5.0); Alkaline Phosphatase 65 U/L (39-117); Anion Gap 14 (12-20); Aspartate Amino Transferase 16 U/L (5-31); Bilirubin Total 0.8 mg/dL (0.0-1.0); Blood Urea Nitrogen 12 mg/dL (9-16); Calcium 10.1 mg/dL (8.4-10.2); Carbon Dioxide 24 mmol/L (22-29); Chloride 106 mmol/L (96-108); Cholesterol 200 mg/dL (<200); Estimated Glomerular Filt Rate 54; Glucose Fasting 89 mg/dL (60-99); HDL Cholesterol 38 mg/dL (>40); LDL Cholesterol Calculated 136 mg/dL (<100); Potassium 4.4 mmol/L (3.3-5.1); Sodium 140 mmol/L (135-145); Total Protein 7.1 g/dL (6.5-8.0); Triglycerides 133 mg/dL (<150)
[2024-04-02 01:57] LABS: Thyroid Stimulating Hormone 1.08 uIU/mL (0.32-4.0)
== END 2024-04-01 13:30 | disposition home or self-care (01) ==
LOC: HO.LAB 13:29
PROVIDERS: PCP Internal Medicine; Visit Provider Internal Medicine
DX: I12.9 Hypertensive chronic kidney disease with stage 1 through stage 4 chronic kidney disease, or unspecified chronic kidney disease (principal); N18.9 Chronic kidney disease, unspecified; E03.9 Hypothyroidism, unspecified; M25.532 Pain in left wrist
CPT/HCPCS: 36415; 73130; 80053; 80061; 83970; 84439; 84443; 85025

== ENCOUNTER 2024-05-12 13:54 | Outpatient (REF) | payer MEDICARE, SELFPAY ==
--- NOTE | ~2024-05-12 | MM_ITS ---
EXAMINATION: MM SCREENING DIGITAL BREAST TOMOSYNTHESIS, BILATERAL CLINICAL INFORMATION: Screening. Asymptomatic. COMPARISON: Mammography: Comparison is made with available priors TECHNIQUE: Digital breast tomosynthesis is performed in both the craniocaudal and mediolateral oblique views along with computer-aided detection (CAD). Synthesized 2D images are generated from the tomosynthesis. FINDINGS: There are scattered areas of fibroglandular density (ACR BI-RADS breast composition Category b). There are no significant masses, abnormal calcifications, or other abnormalities. MM/MM tomosynthesis screening BI IMPRESSION: No mammographic evidence of malignancy. ASSESSMENT: BI-RADS BI-RADS 1 - Negative RECOMMENDATION: Routine annual mammography screening. 1 year F/U This examination should not preclude the clinical evaluation of a suspicious palpable abnormality. This patient's information was entered into a reminder system with a target due date for their next mammogram. Electronically signed by: Jodie Galdamez DO 06/03/2024 09:50 PM EDT
--- NOTE | ~2024-05-12 | MM_ITS ---
EXAMINATION: BONE DENSITOMETRY CLINICAL INDICATION: Screening. COMPARISON: Baseline BD dated 04/24/2021. TECHNIQUE: Using a Med fusion DXA System (software version: 13.1) manufactured by [employer], dual-energy x-ray absorptiometry was performed of the lumbar spine and left hip. The images are of good technical quality. Summary results are attached. FINDINGS: LEFT FEMUR, NECK: Current: BMD 0.711 g/cm2, Z-score -0.8, T-score -2.4, osteopenia. Baseline: BMD 0.712 g/cm2. LEFT FEMUR, TOTAL: Current: BMD 0.844 g/cm2, Z-score 0.1, T-score -1.3, osteopenia, 1.7% decrease from baseline (<5% change is not significant). Baseline: BMD 0.859 g/cm2. AP SPINE L1-L4: Current: BMD 1.351 g/cm2, Z-score 2.2, T-score 1.4, normal, 3.2% decrease from baseline (<5% change is not significant). Baseline: BMD 1.396 g/cm2. IDENTIFIED RISK FACTORS: Menopause, renal. HISTORY OF FRACTURE: None listed. MEDICATIONS: None listed. MM/XR DEXA axial skeleton IMPRESSION: 1. DIAGNOSIS: Osteopenia based on the lowest T-score value of -2.4 in the femoral neck applying World Health Organization criteria. 2. 10-YEAR FRACTURE RISK PREDICTION, FRAX: Major osteoporotic fracture (clinical spine, forearm, hip or shoulder) 16.1%. Hip fracture 5.4%. 3. Treatment Recommendations: NOF guidelines recommend consideration for treatment in postmenopausal women and men age 50 and older presenting with the following: -A hip or vertebral (clinical or morphometric) fracture. -T-score less than or equal to -2.5 at the femoral neck or spine after appropriate evaluation to exclude secondary causes. -Low bone mass at the hip or spine and a 10-year fracture probability by FRAX of greater than or equal to 3% for hip fracture or greater than or equal to 20% for major osteoporotic fracture based on the [place] adapted WHO algorithm. 4. Other Recommendations: All treatment decisions require clinical judgment and consideration of individual patient factors, including patient preferences, comorbidities, previous drug use, risk factors not captured in the FRAX model (e.g. frailty, falls, vitamin D deficiency, increased bone turnover, interval significant decline in bone density) and possible under or overestimation of fracture risk by FRAX. Additional medical evaluation for secondary cause of low bone mineral density may be appropriate. FUTURE SCAN RECOMMENDATION: People with diagnosed cases of osteoporosis or at high risk for fracture should have regular bone mineral density tests. For patients eligible for Medicare, routine testing is allowed once every 2 years. The testing frequency can be increased to one year for patients who have rapidly progressing disease, those who are receiving or discontinuing medical therapy to restore bone mass, or have additional risk factors. Electronically signed by: Priyank Earl MD 05/17/2024 11:16 AM EDT
--- NOTE | 2024-05-12 15:04 | CA_ITS ---
Transthoracic Echocardiogram Patient (Last, First, Middle): Heidi Dorado J Gender: Female Date of : 1940 Age: 84 Procedure Date: 05/12/2024 Procedure Type: Transthoracic Echocardiogram Location: OP Height: 167. cm Weight: 97.52 kg BSA: 2.06 m2 Heart Rate: 57 bpm BP: 138 / 70 mmHg Care Associate: DUSTIN Referring MD: Zuhair Singh MD [employer] Grade Three: Thanh Beckwith MD Symptoms: NONRHUEMATIC AORTIC STENOSIS Study Quality: Technically Difficult w/Contrast ECG Rhythm: Sinus Conclusions: - 1. Technically limited study despite use of contrast agent 2. Normal LV ejection fraction of 65-70% 3. Moderate to severe aortic stenosis with mean gradient of 27 mm Hg and valve area 0.84 cm2 with a dimensionless index of 0.29 Findings Procedure Information Contrast agent, definity, is being given per protocol without apparent complications. Left Ventricle The left ventricle was not well visualized. Normal left ventricular cavity size. There is normal left ventricular wall thickness. The left ventricular systolic function is normal. The visually estimated ejection fraction is between 65-70%. Spectral Doppler is indicative of an impaired relaxation filling pattern. Right Ventricle The right ventricle was not well visualized. Atria The left atrium is normal in size. Interatrial shunt cannot be excluded. The right atrium was not well visualized. Aortic Valve The aortic valve was not well visualized. There is moderate calcification of the aortic valve. There is moderate to severe aortic valve stenosis. The mean gradient is 27 mmHg. The aortic valve area is 0.84 cm2. There is no aortic valve regurgitation. calculated dimensionless index is 0.29, most suggestive of moderate aortic stenosis. Mitral Valve Likely normal mitral valve structure and function. There is trace mitral valve regurgitation. There is no mitral valve stenosis. Pulmonic Valve The pulmonic valve was not well visualized. Tricuspid Valve The tricuspid valve was not well visualized. Tricuspid regurgitation envelope is inadequate for calculation of right ventricular systolic pressure. Normal right atrial pressure. Great Vessels The aorta was not well visualized. The pulmonary artery was not well visualized. Venous The inferior vena cava is normal in size and collapses greater than 50% with inspiration. Pericardium/Pleural The pericardium was not well visualized. Prior Study Comparison no previous study in the last 5 years for comparison Measurements 2D Linear Measurements IVSd: 0.91 0.6-0.9/0.6-1.0 cm LVIDd: 4.37 3.9-5.3/4.2-5.9 cm LVIDd Index: 2.12 2.4-3.2/2.2-3.1 cm/m2 LVIDs: 2.97 2.0-3.6 cm LVPWd: 1.09 0.7-1.1 cm LA Diam: 2.80 2.7-3.8/3.0-4.0 cm LAIDs Index: 1.36 1.5-2.3 cm/m2 LV Mass: 181.90 67-162/88-224 g LV Mass Index: 88.30 43-95/49-115 g/m2 LVOT Diam: 1.90 3.0+(-)1.3 cm 2D Systolic Function EF 4C: 63.60 >55% EF 2C: 73.90 >55% Mitral Valve MV Pk E: 0.94 MV PK A: 1.18 MV Decel Time: 268.00 E/A: 0.80 E'Lateral: 6.20 E'Medial: 6.09 E/E' Med: 15.40 E/E' Lat: 15.10 PHT: 79.00 MVA PHT: 2.78 Decel [place]: 3.49 Aortic Valve AoV Pk Tripp: 3.45 AoV Mn Tripp: 2.43 AoV VTI: 0.76 AoV Pk Grad: 48.00 Aov Mn Grad: 27.00 TITO Cont.VTI: 0.84 LVOT LVOT Pk Tripp: 1.05 LVOT Mn Tripp: 0.72 LVOT VTI: 0.23 LVOT Pk Grad: 4.00 LVOT Mn Grad: 2.00 LVOT Diam: 1.90 LVOT Area: 2.84 Diastolic Function MV Pk E: 0.94 MV Pk A: 1.18 E/A: 0.80 E'Medial: 6.09 E/E' Med: 15.40 E' Laterial: 6.20 E/E' Lat: 15.10 Right Ventricle TVS' Tripp: 12.40 Tricuspid Valve RA Press: 3.00 Great Vessels Aorta Sinus of Valsalva: 3.00 2.0-3.5 cm Ao Asc: 3.00 2.1-3.4 cm Pulmonary Valve PV Pk Tripp: 1.00 Peak PV Grad: 4.00 Updated in Other Vendor System with Status of Final Thanh Beckwith MD electronically signed on 05/13/2024 11:37:41 AM with status of Final
== END 2024-05-12 13:55 | disposition home or self-care (01) ==
LOC: HO.MAMMO 13:54
PROVIDERS: PCP Internal Medicine; Visit Provider Internal Medicine
DX: I35.0 Nonrheumatic aortic (valve) stenosis (principal); R01.1 Cardiac murmur, unspecified; Z12.31 Encounter for screening mammogram for malignant neoplasm of breast; Z13.820 Encounter for screening for osteoporosis; Z78.0 Asymptomatic menopausal state
CPT/HCPCS: 77063; 77067; 77080; 93306; Q9957

== ENCOUNTER → 2024-05-12 14:15 | Outpatient (BNV) | payer MEDICARE, SELFPAY | PROVIDERS: PCP Internal Medicine; Visit Provider Internal Medicine | DX: Z12.31 Encounter for screening mammogram for malignant neoplasm of breast (principal) | CPT/HCPCS: 77063; 77067 ==

== ENCOUNTER → 2024-05-12 15:04 | Outpatient (BNV) | payer MEDICARE, SELFPAY | PROVIDERS: PCP Internal Medicine; Visit Provider Internal Medicine Cardiovascular Disease | DX: I35.0 Nonrheumatic aortic (valve) stenosis (principal); I35.8 Other nonrheumatic aortic valve disorders | CPT/HCPCS: 93306 ==

== ENCOUNTER 2024-08-24 07:36 | Emergency (ER) | payer MEDICARE, SELFPAY ==
--- NOTE | ~2024-08-24 | CT_ITS ---
EXAMINATION: CT ABDOMEN AND PELVIS WITHOUT CONTRAST CLINICAL INFORMATION: Right flank pain. History of kidney stones COMPARISON: 11/13/2021 TECHNIQUE: Multidetector volumetric imaging was performed from the superior aspect of the liver through the pubic symphysis. Sagittal and coronal reformatted images were obtained on the technologist's workstation. This CT examination was performed using dose optimization techniques as appropriate, variously including the following: *Automated exposure control *Adjustment of mA and/or kV according to patient size (this includes techniques or standardized protocols for targeted exams where dose is matched to indication/reason for exam; i.e. extremities or head) *Use of iterative reconstruction technique DLP: 711 mGy-cm FINDINGS: LUNG BASES: The visualized lung bases are unremarkable. LIVER, GALLBLADDER, AND BILIARY TREE: The liver is normal in size, shape, and attenuation. No focal hepatic lesion or biliary ductal dilatation is present. Multiple small layering gallstones are observed but no adjacent inflammatory change. PANCREAS: Unremarkable. SPLEEN: Unremarkable. ADRENAL GLANDS: Unremarkable. KIDNEYS AND URETERS: Kidneys appear somewhat nodular and atrophic with several tiny probable cyst not completely characterized, the largest the anterior mid right kidney at 15 mm. No change from 11/13/2021. No further workup needed. BLADDER: Unremarkable. GASTROINTESTINAL TRACT: A few small sigmoid diverticula are noted. No bowel obstruction or right or left lower quadrant inflammatory change. Appendix not clearly seen. ABDOMINAL WALL: No significant hernia is appreciated. LYMPH NODES: A few tiny periportal nodes less than 1 cm in size are stable. VASCULAR: There are atherosclerotic but not aneurysmal. Retroaortic left renal vein unchanged. PELVIC VISCERA: Unremarkable. OSSEOUS STRUCTURES: Spondylitic and degenerative change in the lumbar spine but no fracture. CT/CT abdomen pelvis wo IV con IMPRESSION: Unremarkable study. No renal calculi or hydronephrosis. No acute findings. Fleischner guidelines were followed. Electronically signed by: Moises Pablo MD 08/24/2024 10:28 AM ULICES
[2024-08-24 07:40] VITALS: BP 183/69; PULSE 77; RESP 18; TEMP 36.6; O2SAT 96; BMI 34.2
--- NOTE | 2024-08-24 08:29 | ED_ITS ---
HPI - General Adult General Chief complaint: Back Pain/Injury Stated complaint: hip pain Time Seen by Provider: 08/24/24 08:29 History of Present Illness ED Provider: Solo DAWSON narrative: The patient is an 84-year-old woman with a history of kidney stones who has had right lower back pain for the last 4 days. She feels the symptoms primarily when she is in bed at night. She does not feel the pain is worse with certain movements. She does not feel she has injured herself. She does not have any urinary discomfort. She feels the pain is somewhat like pain she has had with kidney stones in the past. No fever, sweats, chills. No nausea or vomiting. No dysuria or definite change in urinary frequency or urgency. Related Data Home Medications ?Medication ?Instructions ?Recorded ?Confirmed levothyroxine 125 mcg tablet 125 mcg PO DAILY 06/29/20 06/29/20 metoprolol tartrate 25 mg tablet 25 mg PO DAILY 06/29/20 06/29/20 Previous Rx's ?Medication ?Instructions ?Recorded cyclobenzaprine 5 mg tablet 5 mg PO BEDTIME PRN muscle spasm 11/13/21 #6 tabs lidocaine 5 % topical patch 1 patch topical DAILY PRN pain #15 11/13/21 ea cephalexin 500 mg capsule 500 mg PO BID #10 caps 08/24/24 Allergies Allergy/AdvReac Type Severity Reaction Status Date / Time No Known Allergies Allergy Verified 08/24/24 07:43 [No Known Allergies*] Review of Systems 2 Review of Systems: Yes all other systems are reviewed and are negative FORMERLY [facility], [facility]–1983 Past Medical History Medical History Anal pain Arthritis Arthritis of knee Hard of hearing Hypertension Hypothyroidism (acquired) Kidney stones Renal cyst, acquired Shoulder pain Thyroid disease Surgical History History of lithotripsy (~08/15/16) History of thyroidectomy Family History Family History Father Myocardial infarct Mother Myocardial infarct Social History Social History Alcohol intake: never Advance Directives: No Advance Directives Information Provided: Yes Physical Exam ED Vital Signs: Vital Signs - 24 hr 08/24/24 07:40 Temperature 97.8 F Pulse Rate 77 Respiratory Rate 18 Blood Pressure 183/69 H Pulse Oximetry 96 Oxygen Delivery Method Room Air BMI result Body Mass Index 34.2 Const Other: The patient is awake and alert. She is pleasant and cooperative. She is elderly and looks chronically ill but not acutely ill. She has a nontoxic demeanor. HENMT Other: Face is symmetrical. Mucous membranes moist. Eyes General: appearance normal, both eyes and all related structures Neck Neck: Yes full ROM and Yes no JVD Resp Effort & Inspection: normal respiratory effort Auscultation: clear to auscultation bilaterally Cardio Rate: regular rate Rhythm: regular rhythm Heart sounds: S1 normal heart sound present, S2 normal heart sound present and Murmur heart sound present (3/6 systolic murmur) GI Other: Abdomen is soft and nontender Back/Spine/Pelvis Other: No midline vertebral tenderness. There did seem to be some right-sided paraspinous tenderness and also some right-sided CVA percussion tenderness. Skin Other: Skin is pale and dry Neuro Other: The patient is awake and alert with a normal mental status. Cranial nerves are grossly intact. She moves very stiffly and slowly but she seems to move with normal strength in her extremities. Extrem Other: No peripheral edema Medications Administered Discontinued Medications Generic Name Dose Route Start Last Admin Trade Name Freq PRN Reason Stop Dose Admin Cephalexin HCl 500 mg 08/24/24 11:05 08/24/24 11:57 Cephalexin 500 Mg Capsule PO 08/24/24 11:06 500 mg ONCE ONE Administration Medical Decision Making Medical Decision Making [facility] Narrative: The patient is an 84-year-old woman with a history of kidney stones. She presents with right flank pain that she was concerned may indicate a recurrent kidney stone problem. She has a negative CT of the abdomen and pelvis. Urinalysis is mildly abnormal but she does not really seem to have significant UTI symptoms. Blood testing is unremarkable. I suspect her pain is probably musculoskeletal. She will be advised to use acetaminophen and follow up with regular doctor. The urine culture is pending. No antibiotics prior to the urine culture result. Lab Data 08/24/24 09:36 08/24/24 09:36 Labs: Lab Results 12/11/24 12/11/24 12/11/24 Range/Units 09:11 09:35 09:36 WBC 7.3 (4.8-10.8) X10*3/uL RBC 4.90 (4.20-5.50) X10*6/uL Hgb 13.7 (12.0-16.0) g/dl Hct 43.1 (37.0-47.0) % MCV 88.0 (80.0-98.0) fL MCH 28.0 (27.0-33.0) pg MCHC 31.8 (31.0-35.0) g/dl RDW 15.1 (11.0-16.0) % Plt Count 219 (160-400) X10*3/uL MPV 9.4 (9.4-12.3) fL Immature Gran % (Auto) 0.5 H (0.0-0.4) % Neut % (Auto) 70.5 (45-73) % Lymph % (Auto) 19.3 L (20-40) % [place] % (Auto) 7.1 (2-11) % Eos % (Auto) 1.6 (0-4) % Baso % (Auto) 1.0 (0-2) % Lymph # (Auto) 1.4 (1.2-4.9) X10*3/uL [place] # (Auto) 0.5 (0.1-1.2) X10*3/uL Eos # (Auto) 0.1 (0.0-0.4) X10*3/uL Baso # (Auto) 0.1 (0.0-0.2) X10*3/uL Abs Immat Gran (auto) 0.04 H (0.00-0.03) X10*3/uL Absolute Neuts (auto) 5.1 (2.0-8.3) x10*3/uL Absolute Nucleated RBC 0.000 (0.0-0.012) X10*3/uL Nucleated RBC % (auto) 0.0 (0.0-0.2) /100WBC Sodium 141 (135-145) mmol/L Potassium 4.7 (3.3-5.1) mmol/L Chloride 108 (96-108) mmol/L Carbon Dioxide 27 (22-29) mmol/L Anion Gap 11 L (12-20) BUN 12 (9-16) mg/dL Creatinine 1.01 (0.5-1.4) mg/dL Estim Creat Clear Calc 49.3 Estimated GFR 52 Random Glucose 108 (60-115) mg/dL Calcium 10.5 H (8.4-10.2) mg/dL Total Bilirubin 0.7 (0.0-1.0) mg/dL AST 20 (5-31) U/L ALT 11 (0-31) U/L Alkaline Phosphatase 75 (39-117) U/L C-Reactive Protein 0.79 H (< or = 0.50) mg/dL Total Protein 7.2 (6.5-8.0) g/dL Albumin 4.0 (3.5-5.0) g/dL Lipase 25 (8-78) U/L Urine Color Yellow Urine Appearance Clear Urine pH 5.5 (5.0-9.0) Ur Specific [place] 1.010 (1.005-1.025) Urine Protein Negative (Neg-Trace) mg/dL Urine Glucose (UA) Negative (Negative) mg/dL Urine Ketones Negative (Negative) mg/dL Urine Blood Negative (Negative) Urine Nitrite Negative (Negative) Ur Leukocyte Esterase Small (1+) H (Negative) Urine RBC 0-2 (0-2) /HPF Urine WBC 6-10 H (0-5) /HPF Ur Squamous Epith Cells 0-2 (0-2) /HPF Urine Bacteria None Seen (None Seen) Hyaline Casts 0-2 (0-2) /LPF Discharge Plan Discharge Clinical Impression: Acute right-sided low back pain, Abnormal urinalysis Patient Disposition: Home, Self-Care Additional Instructions: Your testing in the emergency room today does not show any acutely dangerous cause of your right lower back pain. There is no kidney stone or other obvious abnormality apparent. Your urine testing is potentially suggestive of a urinary tract infection. It is not entirely clear to me that you do have a urinary tract infection but we will start you on antibiotics at this point in case you do. Please take the cephalexin 2 times a day (approximately every 12 hours), as prescribed. Next dose this evening. Please follow up with your regular doctor soon for a recheck and a 2nd opinion. Return to the emergency room if you feel significantly worse. Prescriptions: New cephalexin 500 mg capsule 500 mg PO BID Qty: 10 0RF No Action cyclobenzaprine 5 mg tablet 5 mg PO BEDTIME PRN (Reason: muscle spasm) Qty: 6 0RF lidocaine 5 % adhesive patch,medicated 1 patch topical DAILY PRN (Reason: pain) Qty: 15 0RF Rx Instructions: leave on most painful area for up to 12 hrs levothyroxine 125 mcg tablet 125 mcg PO DAILY metoprolol tartrate 25 mg tablet 25 mg PO DAILY Referrals: Zuhair Singh MD [Primary Care Provider] - (Low back pain, abnormal urinalysis) Interventions: ED Discharge Assessment Last Done: 08/24/24 11:58 Discharge Date/Time: 08/24/24 11:59 Print Language: Guinean
--- NOTE | 2024-08-24 08:52 | ECG_ITS ---
Test Reason : MURMUR Blood Pressure : / mmHG Vent. Rate : 066 BPM Atrial Rate : 066 BPM P-R Int : 194 ms QRS Dur : 082 ms QT Int : 414 ms P-R-T Axes : 067 -04 029 degrees QTc Int : 434 ms Normal sinus rhythm Low voltage QRS Cannot rule out Anterior infarct , age undetermined Abnormal ECG When compared with ECG of 11-OCT-2018 13:13, Minimal criteria for Anterior infarct are now Present Nonspecific T wave abnormality now evident in Anterior leads Referred By: Bill Banda Electronically Signed By:TESS AGUILAR MD
--- NOTE | 2024-08-24 09:01 | PC.NURSE ---
Pt to radiology.
[2024-08-24 09:28] LABS: Appearance Urine Clear; Color Urine Yellow; Glucose Urine UA Negative (Negative); Leukocyte Esterase Urine Small (1+) (Negative); Nitrite Urine Negative (Negative); PH 5.5 (5.0-9.0); UMIC TRIGGER UACC YES; Urine Blood Negative (Negative); Urine Ketones Negative (Negative); Urine Protein Negative (Neg-Trace)
[2024-08-24 09:30] LABS: Bacteria Urine None Seen (None Seen); Hyaline Casts Urine 0-2 /LPF (0-2); RBC Urine 0-2 /HPF (0-2); Squamous Epithelial Cell Urine 0-2 /HPF (0-2); UACC Culture Trigger YES
[2024-08-24 09:39] LABS: MANUAL DIFF FLAG NO
[2024-08-24 09:41] LABS: Basophils Absolute Auto 0.1 X10*3/uL (0.0-0.2); Eosinophils Absolute Auto 0.1 X10*3/uL (0.0-0.4); Eosinophils Percent Auto 1.6 % (0-4); Hematocrit 43.1 % (37.0-47.0); Hemoglobin 13.7 g/dl (12.0-16.0); Imm Gran Abs Auto 0.04 X10*3/uL (0.00-0.03); Imm Gran Pct Auto 0.5 % (0.0-0.4); Lymphocytes Absolute Auto 1.4 X10*3/uL (1.2-4.9); Lymphocytes Percent Auto 19.3 % (20-40); Mean Corpuscular HGB Conc 31.8 g/dl (31.0-35.0); Mean Platelet Volume 9.4 fL (9.4-12.3); Monocytes Absolute Auto 0.5 X10*3/uL (0.1-1.2); Monocytes Percent Auto 7.1 % (2-11); Neutrophils Absolute Auto 5.1 x10*3/uL (2.0-8.3); Neutrophils Percent Auto 70.5 % (45-73); Platelet Count 219 X10*3/uL (160-400); Red Cell Distribution Width 15.1 % (11.0-16.0); White Blood Count 7.3 X10*3/uL (4.8-10.8)
[2024-08-24 09:53] LABS: C Reactive Protein 0.79 mg/dL (< or = 0.50)
[2024-08-24 09:56] LABS: Alanine Aminotransferase 11 U/L (0-31); Alkaline Phosphatase 75 U/L (39-117); Anion Gap 11 (12-20); Aspartate Amino Transferase 20 U/L (5-31); Bilirubin Total 0.7 mg/dL (0.0-1.0); Blood Urea Nitrogen 12 mg/dL (9-16); Calcium 10.5 mg/dL (8.4-10.2); Carbon Dioxide 27 mmol/L (22-29); Chloride 108 mmol/L (96-108); Creatinine Clr Calc Pharmacy 49.3; Estimated Glomerular Filt Rate 52; Glucose Random 108 mg/dL (60-115); Lipase 25 U/L (8-78); Potassium 4.7 mmol/L (3.3-5.1); Sodium 141 mmol/L (135-145); Total Protein 7.2 g/dL (6.5-8.0)
[2024-08-24] MEDS: cephALEXin 500 MG CAPSULE PO (11:57)
[2024-08-24 11:58] VITALS: BP 183/69; PULSE 77; RESP 18; TEMP 36.6; O2SAT 96
== END 2024-08-24 11:59 | disposition home or self-care (01) ==
PROVIDERS: Emergency Provider Emergency Medicine; PCP Internal Medicine
DX: M54.50 Low back pain, unspecified (principal); R82.90 Unspecified abnormal findings in urine; I10 Essential (primary) hypertension; Z87.442 Personal history of urinary calculi; Z79.899 Other long term (current) drug therapy
CPT/HCPCS: 36415; 74176; 80053; 81001; 83690; 85025; 86140; 87086; 93005; 99283; 99284

== ENCOUNTER → 2024-08-24 08:52 | Outpatient (BNV) | payer MEDICARE, SELFPAY | PROVIDERS: Emergency Provider Emergency Medicine; PCP Internal Medicine; Visit Provider Internal Medicine Cardiovascular Disease | DX: R01.1 Cardiac murmur, unspecified (principal); R94.31 Abnormal electrocardiogram [ECG] [EKG] | CPT/HCPCS: 93010 ==

== ENCOUNTER 2024-12-08 15:16 | Outpatient (AMB) | payer MEDICARE, SELFPAY ==
[2024-12-08 15:19] VITALS: BP 150/80; PULSE 65; TEMP 36.4; O2SAT 96; BMI 35.5
--- NOTE | 2024-12-08 15:19 | MHC.PC.OV ---
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 Required: No Accompanied by: Son Allergies No Known Allergies [No Known Allergies*] Allergy (Verified 12/08/24 15:29) Tobacco use date assessed: 12/08/24 Fall risk assessment: 1 Fall in past year Last assessed Fall Risk: 12/08/24 Dental Screening Dental Screen Date: 12/08/24 Did you have a dental visit in the last 12 months?: No Did you have a dental problem in the last 6 months where you did not have access to dental care?: No HPI HPI Comments History of Present Illness Details Heidi is an 84 year old female with a past medical history of renal cyst, nephrolithiasis, hypothyroid, hypertension, , CKD, presenting for follow up.Last seen in March by pcp CV: On metoprolol. Reports cold feet chronically MSK: Bilateral shoulder pain, bilateral hand pain, right sciatica. Worse in the shoulder-saw Dr Oliveira, bilateral hand pain. Fell two years ago. Hypothyroid: On levothyroxine 125mcg daily. Urology: follows with urology Mammo 05/12/2024: ROS see HPI PHYSICAL EXAM: GENERAL: Alert and oriented x 3. NAD EYES: EOMI. Anicteric. HENT: Moist mucous membranes. No scleral icterus. No cervical lymphadenopathy. LUNGS: Clear to auscultation bilaterally. CARDIOVASCULAR: Regular rate and rhythm. + murmur. No JVD. ABDOMEN: Soft, non-tender +bs EXTREMITIES: No edema. Non-tender. SKIN: No rashes or lesions. Warm. NEUROLOGIC: No focal neurological deficits. CN II-XII grossly intact PSYCHIATRIC: Cooperative. Appropriate mood and affect [facility] Medical History (Updated 12/11/24 @ 14:07 by Rosa Isela Alcala MD) Renal cyst, acquired Arthritis of knee Shoulder pain Anal pain Thyroid disease Arthritis Hypothyroidism (acquired) Hard of hearing Kidney stones Hypertension Surgical History History of lithotripsy (~08/15/16) History of thyroidectomy Family History Father Myocardial infarct Mother Myocardial infarct Social History Housing: House Alcohol intake: never Patient Tobacco Use Status: Former Tobacco user e-Cigarette/Vaping Use: Former Use service: No Current occupational status: retired Cognitive needs: No Hearing needs: No Vision needs: Yes (rx glasses) Questionnaire PHQ-9 Over the last 2 weeks, how often have you been bothered by any of the following problems? 1. Little interest or pleasure in doing things: not at all 2. Feeling down, depressed, or hopeless: several days 3. Trouble falling or staying asleep, or sleeping too much: several days 4. Feeling tired or having little energy: not at all 5. Poor appetite or overeating: not at all 6. Feeling bad about yourself - or that you are a failure or have let yourself or your family down: not at all 7. Trouble concentrating on things, such as reading the newspaper or watching television: not at all 8. Moving or speaking so slowly that other people could have noticed. Or the opposite - being so fidgety or restless that you have been moving around a lot more than usual: not at all 9. Thoughts that you would be better off or of hurting yourself in some way: not at all Total score: 2 Depression Screening Interpretation: Negative Depression Screening Done: Yes 88154 - PHQ-9 Billing: Yes Source: Developed by Drs. Jv Jacobson, Rosanna Mendoza, Quang Rojas and colleagues, with an educational manuel from [employer]. Thrive Questionnaire Date Thrive assessed: 12/08/24 I am a: Patient Within the past 12 months, did the food you bought not last and you didn't have the money to get more?: Never true Within the past 12 months, did you worry whether your food would run out before you got money to buy more?: Never true Do you have trouble paying for medicines?: No Do you have trouble getting transportation to medical appointments?: No Do you have trouble paying your heating and electricity bill?: No Do you have trouble taking care of your child, family member or friend?: No Do you have trouble with day-to-day activities such as bathing, preparing meals, shopping, managing finances, etc.?: No Are you currently unemployed and looking for a job?: No Are you interested in more education?: No THRIVE Score: 0 AUDIT C Alcohol Use Questionnaire (AUDIT-C) 1. How often do you have a drink containing alcohol?: Never 3. How often do you have six or more drinks on one occasion?: Never Total Score: 0 RAFA-7 AMB Questionnaire RAFA-7 Date RAFA - 7 assessed: 12/08/24 Feeling nervous, anxious, or on edge: 0 = Not at all Not being able to stop or control worryin = Not at all Worrying too much about different things: 0 = Not at all Trouble relaxin = Not at all Being so restless that it is hard to sit still: 0 = Not at all Becoming easily annoyed or irritable: 0 = Not at all Feeling afraid as if something awful might happen: 0 = Not at all Total RAFA-7 score (0-4 normal; 5-9 mild; 10-14 moderate; 15-21 severe): 0 Source: Developed by Drs. Jv Jacobson, Rosanna Mendoza, Quang Rojas and colleagues, with an educational manuel from [employer]. Physical exam (Primary Care) Vital Signs: Last Vital Signs Temp 97.5 F 12/08/24 15:19 Pulse 65 12/08/24 15:19 BP 150/80 H 12/08/24 15:19 Pulse Ox 96 12/08/24 15:19 Oxygen Delivery Method Room Air 12/08/24 15:19 BMI result Body Mass Index 35.5 Tobacco/Smoking Status: Tobacco use Status Tobacco use date assessed 12/08/24 12/08/24 15:22 Patient Tobacco Use Status Former Tobacco user 12/08/24 15:37 e-Cigarette/Vaping Use Former Use 12/08/24 15:37 PHQ-9: PHQ-9 Score PHQ-9: Total score 2 12/11/24 13:43 Depression Screening Interpretation: Negative Thrive Assessment: Date of Thrive Assessment Date Thrive assessed 12/08/24 12/08/24 15:22 Coding Level of Care Code New Pt Level 4 (16439) Complex EM visit Add On G2211 Diagnoses Polyarthralgia M25.50 Thyroid disease E07.9 Additional Codes PHQ-9 - 83112 - PHQ-9 Billing: Yes ([id number]) Assessment & Plan Assessment & Plan (1) Polyarthralgia: Code(s): M25.50 - Pain in unspecified joint Category: Medical (2) Thyroid disease: Code(s): E07.9 - Disorder of thyroid, unspecified Category: Medical Plan 84 y/o to establish care past medical, surgical, social, family history reviewed chronic pain, arthritis, labs ordered, start rachel lewis referral placed to pain management Orders: Orders Comprehensive Met. Panel 12/08/24 M25.50 - Pain in unspecified joint, M25.511 - Pain in right shoulder, M25.512 - Pain in left shoulder CA echo transthoracic complete Today I35.0 - Nonrheumatic aortic (valve) stenosis Complete Blood Count Auto Diff 12/08/24 M25.50 - Pain in unspecified joint, M25.511 - Pain in right shoulder, M25.512 - Pain in left shoulder Lyme IgG/IgM w/reflex to WB 12/08/24 M25.50 - Pain in unspecified joint, M25.511 - Pain in right shoulder, M25.512 - Pain in left shoulder TSH reflex Free T4 12/08/24 M25.50 - Pain in unspecified joint, M25.511 - Pain in right shoulder, M25.512 - Pain in left shoulder Rheumatoid Factor 12/08/24 M25.50 - Pain in unspecified joint, M25.511 - Pain in right shoulder, M25.512 - Pain in left shoulder Referrals Pain Management Referral M25.50 - Pain in unspecified joint, M25.511 - Pain in right shoulder, M25.512 - Pain in left shoulder Speech and Hearing Referral H91.90 - Unspecified hearing loss, unspecified ear Medications: New gabapentin 300 mg PO BEDTIME 90 caps 3RF levothyroxine 125 mcg PO DAILY 90 tabs 3RF meloxicam 15 mg PO DAILY 90 tabs 3RF metoprolol tartrate 25 mg PO DAILY 90 tabs 3RF Ultra-Light Rollator (walker) As directed 1 ea 0RF NS M17.10 - Unilateral primary osteoarthritis, unspecified knee, M25.50 - Pain in unspecified joint, M25.511 - Pain in right shoulder, M25.512 - Pain in left shoulder
== END 2024-12-08 15:59 | disposition home or self-care (01) ==
LOC: HO.HMCHD 15:16
PROVIDERS: PCP Internal Medicine; Visit Provider Internal Medicine
DX: M25.50 Pain in unspecified joint (principal); E07.9 Disorder of thyroid, unspecified

== ENCOUNTER → 2024-12-08 15:16 | Outpatient (BNVA) | payer MEDICARE, SELFPAY | PROVIDERS: PCP Internal Medicine; Visit Provider Internal Medicine | DX: M25.511 Pain in right shoulder (principal); M25.512 Pain in left shoulder; M79.642 Pain in left hand; M79.641 Pain in right hand; E03.9 Hypothyroidism, unspecified; I12.9 Hypertensive chronic kidney disease with stage 1 through stage 4 chronic kidney disease, or unspecified chronic kidney disease; N18.9 Chronic kidney disease, unspecified; Z79.899 Other long term (current) drug therapy | CPT/HCPCS: 96127; 99202 ==

== ENCOUNTER 2024-12-21 16:32 | Outpatient (REF) | payer MEDICARE, SELFPAY ==
[2024-12-21 16:45] LABS: MANUAL DIFF FLAG NO
[2024-12-21 17:12] LABS: Basophils Absolute Auto 0.1 X10*3/uL (0.0-0.2); Basophils Percent Auto 0.9 % (0-2); Eosinophils Absolute Auto 0.2 X10*3/uL (0.0-0.4); Eosinophils Percent Auto 2.4 % (0-4); Hematocrit 42.6 % (37.0-47.0); Hemoglobin 14.1 g/dl (12.0-16.0); Imm Gran Abs Auto 0.04 X10*3/uL (0.00-0.03); Imm Gran Pct Auto 0.6 % (0.0-0.4); Lymphocytes Absolute Auto 2.3 X10*3/uL (1.2-4.9); Lymphocytes Percent Auto 32.3 % (20-40); Mean Corpuscular HGB Conc 33.1 g/dl (31.0-35.0); Mean Corpuscular Hemoglobin 28.7 pg (27.0-33.0); Mean Corpuscular Volume 86.6 fL (80.0-98.0); Mean Platelet Volume 9.3 fL (9.4-12.3); Monocytes Absolute Auto 0.5 X10*3/uL (0.1-1.2); Monocytes Percent Auto 7.3 % (2-11); Neutrophils Percent Auto 56.5 % (45-73); Platelet Count 218 X10*3/uL (160-400); Red Blood Count 4.92 X10*6/uL (4.20-5.50); Red Cell Distribution Width 15.2 % (11.0-16.0)
[2024-12-21 17:44] LABS: Rheumatoid Factor < 13.0 IU/mL (<15.0)
[2024-12-21 17:51] LABS: Alanine Aminotransferase 77 U/L (0-31); Albumin Level 4.5 g/dL (3.5-5.0); Alkaline Phosphatase 80 U/L (39-117); Anion Gap 10 (12-20); Aspartate Amino Transferase 53 U/L (5-31); Bilirubin Total 0.7 mg/dL (0.0-1.0); Blood Urea Nitrogen 11 mg/dL (9-16); Calcium 10.2 mg/dL (8.4-10.2); Carbon Dioxide 26 mmol/L (22-29); Chloride 107 mmol/L (96-108); Estimated Glomerular Filt Rate 53; Glucose Random 99 mg/dL (60-115); Potassium 4.4 mmol/L (3.3-5.1); Sodium 139 mmol/L (135-145); Total Protein 7.7 g/dL (6.5-8.0)
--- OUTSIDE RECORDS SUMMARY | 2024-12-21 17:51 | XMS_ITS | Clinical Summary ---
Author Organization [facility], Address [address] [place] [address] Phone Care Team Providers Care Roller Stitcher Name Role Phone Zuhair Singh MD Primary Care Provider [phone] Allergies No known active allergies Medications levothyroxine sodium (TIROSINT) 137 MCG capsule Take 137 mcg by mouth 1 (one) time each day Active metoprolol tartrate (LOPRESSOR) 25 MG tablet Take 25 mg by mouth 2 (two) times a day Active omeprazole (PriLOSEC) [address] capsule Take 20 mg by mouth 1 (one) time each day Do not crush or chew. Active Active Problems Problem Noted Date Diagnosed Date Essential (primary) hypertension 03/19/2021 Gastroesophageal reflux disease 03/19/2021 Nephrolithiasis 03/19/2021 Social History Tobacco Use Types Packs/Day Years Used Date Smoking Tobacco: Never Assessed Comments Unknown Sex and Gender Information Value Date Recorded Sex Assigned at Not on file Legal Sex Female 12:19 PM EDT Gender Identity Not on file Sexual Orientation Not on file Plan of Treatment Health Maintenance Due Date Last Done Comments Pneumococcal Vaccine: 65+ Ye ars (1 of 1 - PCV) 2006 Influenza Vaccine (Season Ended) 2025 Hepatitis B Vaccine Aged Out No longe r eligible based on patient's age to complete this topic Insurance [facility] Care Teams Roller Stitcher Relationship Specialty Start Date End Date Zuhair Singh MD [address] [place] [address] [id number] [place], [place] PCP - General Internal Medicine 12/25/20
[2024-12-21 18:05] LABS: TSH reflex Free T4 4.94 uIU/mL (0.32-4.0)
[2024-12-21 18:42] LABS: Free T4 (Free Thyroxine) 1.11 ng/dL (0.71-1.85)
[2024-12-22 09:08] LABS: Lyme Abs Screen <0.90 index
== END 2024-12-21 16:33 | disposition home or self-care (01) ==
LOC: HO.LAB 16:32
PROVIDERS: PCP Internal Medicine; Visit Provider Internal Medicine
DX: M25.511 Pain in right shoulder (principal); M25.512 Pain in left shoulder; M25.50 Pain in unspecified joint
CPT/HCPCS: 36415; 80053; 84439; 84443; 85025; 86431; 86617; 86618

== ENCOUNTER 2024-12-26 14:28 | Outpatient (AMB) | payer MEDICARE, SELFPAY ==
--- NOTE | 2024-12-26 14:41 | MHC.OFFVIS ---
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 She reports no current shoulder pain, although shoulder pain was her initial referral cause. The hand pain is chronic, affecting her ability to perform daily activities comfortably, particularly related to using a cane. Past medical history includes recommendations for physical therapy and injections for shoulder pain due to osteoarthritis, which had previously been beneficial. Last left shoulder steroid injection was on 08/05/[address] Oliveira. The patient also reports she has cold feet, despite wearing appropriate shoes and socks. Current treatment includes Tylenol, which provides minimal relief. She has been avoiding NSAIDs due to chronic kidney impairment. Patient also reports concerns for itchy and painful rash in the skin folds under both breasts and is planning to follow up with PCP. - Pain onset: Chronic pain for many years - Location: Bilateral hands, primarily right hand - Quality: Burning, tingling, hot, tingling, aching, sore, cold feet - Radiation: None mentioned - Exacerbating factors: Lifting, pulling, squeezing, using a cane, movements, cold weather changes - Alleviating factors: Minimal relief with Tylenol. - Functional impact: Difficulty using a cane and conducting daily activities - Affect: Pain appears to contribute to distress and functional impairment - Analgesia: Tylenol is used with minimal effect; reports no other significant pain management attempted - Adverse Effects: None explicitly reported from Tylenol; concerns about medication affecting kidneys and liver - Activities of Daily Living: Pain affects the use of a cane and performance of routine tasks - Aberrant Drug Related Behaviors: None reported [facility] Medical History (Updated 12/26/24 @ 15:25 by MANDO Tan) Renal cyst, acquired Arthritis of knee Shoulder pain Anal pain Thyroid disease Arthritis Hypothyroidism (acquired) Hard of hearing Kidney stones Hypertension Surgical History History of lithotripsy (~08/15/16) History of thyroidectomy Family History Father Myocardial infarct Mother Myocardial infarct Social History Housing: House Alcohol intake: never Patient Tobacco Use Status: Former Tobacco user e-Cigarette/Vaping Use: Former Use service: No Current occupational status: retired Cognitive needs: No Hearing needs: No Vision needs: Yes (rx glasses) Review of Systems Const Details: - Musculoskeletal: Reports burning, aching and tingling in both hands, denies shoulder pain - Neurological: Denies neck pain currently, reports prior neck and shoulder pain - Vascular: Reports cold feet - Renal: Denies known diabetes; past kidney disease noted - Endocrine: Reports thyroid surgery history; takes thyroid medication - Cardiac: History of aortic stenosis; scheduled for echocardiogram - Dermatologic: Reports rash under breast All systems reviewed & are unremarkable except as noted in HPI and below Physical Exam Vital Signs: Last Vital Signs Pulse 73 12/26/24 14:47 BP 139/68 12/26/24 14:47 Pulse Ox 96 12/26/24 14:47 Oxygen Delivery Method Room Air 12/26/24 14:47 BMI result Body Mass Index 35.5 General: Appears afebrile. Alert and oriented. Mood and affect appropriate. Follows and participates in conversation appropriately. Respiratory effort is unlabored. No cough. Able to transition from sit to stand unassisted. Ambulates with bilaterally normal heel strike and toe off. Bilateral hand pain with mild swelling of the joints. No erythema. Limited ROM due to pain. Skin Rashes: rashes noted (Mild erythema with redness and tenderness in the skin folds under breasts) bilateral breast Extrem General: Yes capillary refill normal, Yes no calf tenderness, No cyanosis and Yes pedal edema (nonpitting) Right upper extremity: shoulder/upper arm Details: normal to inspection and crepitus; no tenderness, no swelling, no ecchymosis and no unusual warmth Left upper extremity: shoulder/upper arm (Limited ROM, difficulty with overhead reaches.) Details: inspection abnormal, tenderness Location: of the A-C joint, over the biceps tendon and over the subacromial bursa and crepitus; no swelling, no ecchymosis and no unsual warmth Results Reviewed Results Reviewed: XR SHOULDER, LEFT 07/03/21 CLINICAL INFORMATION: Pain COMPARISON: Left humerus x-ray April 2011 TECHNIQUE: 3 views of the left shoulder. FINDINGS: Bone alignment is normal. No fracture or dislocation is seen. There is arthritis at the glenohumeral and acromioclavicular joints with joint space narrowing and osteophyte formation. There degenerative changes of the greater tuberosity with subchondral cyst formation. There is soft tissue calcification adjacent to the left greater tuberosity. IMPRESSION: Degenerative changes. DEXA axial skeleton 05/12/24 IMPRESSION: Osteopenia based on the lowest T-score value of -2.4 in the femoral neck applying World Health Organization criteria. XR HAND, LEFT 04/01/24 CLINICAL INFORMATION: Pain. COMPARISON: Left hand and wrist radiographs dated 03/10/2023. FINDINGS: No acute fracture or dislocation. Normal carpal alignment. Joint space narrowing with marginal osteophytes at the radiocarpal joint as well as at the triscaphe and first carpometacarpal joints. [id number] joint space narrowing with marginal osteophytes throughout the metacarpophalangeal and interphalangeal joints. No osseous erosion or periarticular osteopenia. No abnormal soft tissue calcification. IMPRESSION: Moderate degenerative arthritis at the radiocarpal, triscaphe, and first carpometacarpal joints as well as throughout the metacarpophalangeal and interphalangeal joints. Assessment & Plan Assessment & Plan (1) Bilateral shoulder pain: Code(s): M25.511 - Pain in right shoulder; M25.512 - Pain in left shoulder Category: Medical (2) Rotator cuff arthropathy of left shoulder: Code(s): M12.812 - Other specific arthropathies, not elsewhere classified, left shoulder Category: Medical (3) Polyarthralgia: Code(s): M25.50 - Pain in unspecified joint Category: Medical (4) Bilateral hand pain: Code(s): M79.641 - Pain in right hand; M79.642 - Pain in left hand Category: Medical (5) Hand arthritis: Code(s): M19.049 - Primary osteoarthritis, unspecified hand Category: Medical (6) PVD (peripheral vascular disease): Code(s): I73.9 - Peripheral vascular disease, unspecified Category: Medical (7) Bilateral hand pain: Code(s): M79.641 - Pain in right hand; M79.642 - Pain in left hand Category: Medical (8) Intertrigo: Code(s): L30.4 - Erythema intertrigo Category: Medical Plan I will initiate a referral to Rheumatology to further evaluate plyarthritis and inflammatory conditions contributing to the patient's hand pain. An x-ray of the right hand and wrist will be performed, and diclofenac topical will be prescribed for localized pain management. The patient also requires a Vascular referral to assess cold feet and possible Peripheral Vascular Disease. Nystatin cream will be prescribed for breast rash and patient encouraged to follow up with her PCP. Encouraged to keep areas with rash dry and clean. We briefly discussed interventional treatments for bilateral shoulder pain, including diagnostic vs therapeutic injections, RFA and Sprint PNS trial. Patient reports shoulder pain has been minimal and prefers to proceed with hand pain evaluation. All questions and concerns have been answered and patient agreed with the plan. Follow up as needed. Patient was informed and verbally consented to the use of an ambient scribe for clinic note documentation during this visit. Orders: Orders XR hand RT min 3V 12/26/24 M79.641 - Pain in right hand, M79.642 - Pain in left hand XR wrist RT 2V 12/26/24 M79.641 - Pain in right hand, M79.642 - Pain in left hand Referrals Rheumatology Referral M19.049 - Primary osteoarthritis, unspecified hand, M25.50 - Pain in unspecified joint, M79.641 - Pain in right hand, M79.642 - Pain in left hand Vascular Surgery Referral I73.9 - Peripheral vascular disease, unspecified Medications: New diclofenac sodium 1% (Arthritis Pain (diclofenac)) 4 grams topical QID 100 grams 3RF pain M25.511 - Pain in right shoulder, M25.512 - Pain in left shoulder, M79.641 - Pain in right hand, M79.642 - Pain in left hand nystatin 1 appl topical TID PRN 30 grams 0RF rash L30.4 - Erythema intertrigo Coding Level of Care Code New Pt Level 4 (73038) Diagnoses Bilateral shoulder pain M25.511; M25.512 Rotator cuff arthropathy of left shoulder M12.812 Polyarthralgia M25.50 Bilateral hand pain M79.641; M79.642 Hand arthritis M19.049 PVD (peripheral vascular disease) I73.9 Intertrigo L30.4
[2024-12-26 14:47] VITALS: BP 139/68; PULSE 73; O2SAT 96; BMI 35.5
--- OUTSIDE RECORDS SUMMARY | 2024-12-26 16:52 | XMS_ITS | Clinical Summary ---
Author Organization [facility], Address [address] [place] [address] Phone Care Team Providers Care Contact Lens Polisher Name Role Phone Zuhair Singh MD Primary Care Provider [phone] Allergies No known active allergies Medications levothyroxine [...] Due Date Last Done Comments Pneumococcal Vaccine: 50+ Ye ars (1 of 1 - PCV) 1991 Influenza Vaccine (Season Ended) 2025 Hepatitis B Vaccine Aged Out No longe r eligible based on patient's age to complete this topic Insurance [facility] Care Teams Contact Lens Polisher Relationship Specialty Start Date End Date Zuhair Singh MD [address] [place] [address] [phone] [place], [place] PCP - General Internal Medicine 12/25/20
== END 2024-12-26 15:27 | disposition home or self-care (01) ==
LOC: HO.PMC 14:28
PROVIDERS: PCP Internal Medicine; Referring Provider Internal Medicine; Visit Provider Nurse Practitioner Family
DX: M25.511 Pain in right shoulder (principal); M25.512 Pain in left shoulder; M12.812 Other specific arthropathies, not elsewhere classified, left shoulder; M25.50 Pain in unspecified joint; M79.641 Pain in right hand; M79.642 Pain in left hand; M19.049 Primary osteoarthritis, unspecified hand; I73.9 Peripheral vascular disease, unspecified; L30.4 Erythema intertrigo
CPT/HCPCS: 99204

== ENCOUNTER → 2024-12-26 14:28 | Outpatient (BNVA) | payer MEDICARE, SELFPAY | PROVIDERS: PCP Internal Medicine; Referring Provider Internal Medicine; Visit Provider Nurse Practitioner Family | DX: M25.511 Pain in right shoulder (principal); M25.512 Pain in left shoulder; M12.812 Other specific arthropathies, not elsewhere classified, left shoulder; M25.50 Pain in unspecified joint; M79.642 Pain in left hand; M79.641 Pain in right hand; M19.049 Primary osteoarthritis, unspecified hand; I73.9 Peripheral vascular disease, unspecified; L30.9 Dermatitis, unspecified | CPT/HCPCS: 99202 ==

== ENCOUNTER → 2024-12-30 11:28 | Outpatient (REF) | payer MEDICARE, SELFPAY ==
--- NOTE | ~2024-12-30 | XR_ITS ---
EXAMINATION: XR WRIST 1-2 VIEWS RIGHT, XR HAND 3 OR MORE VIEWS RIGHT HISTORY: M79.641 - Pain in right hand COMPARISON: There are no prior studies available for comparison. FINDINGS: Seven views of the right hand and wrist including a scaphoid view are submitted. The bones are osteopenic. There is no fracture or dislocation. Mild degenerative changes involving the DIP and PIP joints as well as the 1st carpometacarpal joint. There is chondrocalcinosis. XR/XR hand RT min 3V IMPRESSION: Osteopenia and chondrocalcinosis. Mild degenerative changes. Electronically signed by: Jv Tirado MD 12/30/2024 12:26 PM EDT
--- NOTE | ~2024-12-30 | XR_ITS ---
EXAMINATION: XR WRIST 1-2 VIEWS RIGHT, XR HAND 3 OR MORE VIEWS RIGHT HISTORY: M79.641 - Pain in right hand COMPARISON: There are no prior studies available for comparison. FINDINGS: Seven views of the right hand and wrist including a scaphoid view are submitted. The bones are osteopenic. There is no fracture or dislocation. Mild degenerative changes involving the DIP and PIP joints as well as the 1st carpometacarpal joint. There is chondrocalcinosis. XR/XR wrist RT 2V IMPRESSION: Osteopenia and chondrocalcinosis. Mild degenerative changes. Electronically signed by: Jv Tirado MD 12/30/2024 12:26 PM EDT
--- OUTSIDE RECORDS SUMMARY | 2024-12-30 12:35 | XMS_ITS | Clinical Summary ---
Author Organization [facility], Address [address] [place] [address] Phone Care Team Providers Care Juvenile Court Judge Name Role Phone Zuhair Singh MD Primary Care Provider [phone] Allergies No known active allergies Medications levothyroxine [...] patient's age to complete this topic Insurance [facility] Care Teams Juvenile Court Judge Relationship Specialty Start Date End Date Zuhair Singh MD [address] [place] [address] [phone] [place], [place] PCP - General Internal Medicine 12/25/20
--- NOTE | 2024-12-30 14:35 | CA_ITS ---
Transthoracic Echocardiogram Patient (Last, First, Middle): Heidi Dorado J Gender: Female Date of : 1940 Age: 84 Procedure Date: 12/30/2024 Procedure Type: Transthoracic Echocardiogram Location: OP Height: 167.64 cm Weight: 99.79 kg BSA: 2.08 m2 Heart Rate: bpm BP: 110 / 58 mmHg Rn Supplemental: TO Referring MD: Rosa Isela Alcala MD Supervisor Air Conditioning Installer: Thanh Beckwith MD Symptoms: I35.0 - Nonrheumatic aortic (valve) stenosis Study Quality: Technically Difficult w contrast ECG Rhythm: Sinus Conclusions: - 1. Severe aortic stenosis with mean gradient of 45 mm Hg 2. Normal LV ejection fraction of 60-65% with impaired relaxation filling pattern and elevated filling pressures 3. Mild mitral regurgitation 4. Normal RV systolic pressure 5. No gross pericardial effusion Findings Procedure Information Contrast agent, definity, is being given per protocol without apparent complications. Left Ventricle Normal left ventricular size, thickness, and systolic function. The visually estimated ejection fraction is between 60-65%. Spectral Doppler is indicative of an impaired relaxation filling pattern. Elevated filling pressures. E/E prime ratio is >15, consistent with elevated filling pressures. Right Ventricle Normal right ventricular cavity size and systolic function. Atria The left atrium was not well visualized. Interatrial shunt cannot be excluded. The right atrium was not well visualized. Aortic Valve There is mild calcification of the aortic valve. There is mild thickening of the aortic valve. There is severe aortic valve stenosis. The peak aortic gradient is 71 mmHg.The mean gradient is 45 mmHg. Mitral Valve There is mild anterior mitral leaflet thickening. There is mild mitral annular calcification. There is mild mitral valve regurgitation. There is no mitral valve stenosis. Pulmonic Valve The pulmonic valve was not well visualized. Tricuspid Valve The tricuspid valve was not well visualized. There is trace tricuspid valve regurgitation. The right ventricular systolic pressure is normal. Normal right atrial pressure. There is no evidence of pulmonary hypertension. Great Vessels All visible segments of the aorta are normal in size. The aorta was not well visualized. The pulmonary artery was not well visualized. There is no dilatation of the ascending aorta measuring 3.00 cm. Venous The inferior vena cava is normal in size and collapses greater than 50% with inspiration. Pericardium/Pleural There is no evidence of pericardial effusion. Prior Study Comparison Changes noted compared to prior study dated: 05/12/2024. Aortic stenosis is in severe range Measurements 2D Linear Measurements IVSd: 1.11 0.6-0.9/0.6-1.0 cm LVIDd: 4.49 3.9-5.3/4.2-5.9 cm LVIDd Index: 2.16 2.4-3.2/2.2-3.1 cm/m2 LVIDs: 2.84 2.0-3.6 cm LVPWd: 1.01 0.7-1.1 cm LA Diam: 3.50 2.7-3.8/3.0-4.0 cm LAIDs Index: 1.68 1.5-2.3 cm/m2 LV Mass: 206.22 67-162/88-224 g LV Mass Index: 99.14 43-95/49-115 g/m2 LVOT Diam: 2.00 3.0+(-)1.3 cm 2D Systolic Function EF 4C: 61.20 >55% Mitral Valve MV Pk E: 0.79 MV PK A: 1.02 MV Decel Time: 225.00 E/A: 0.80 E'Lateral: 5.00 E'Medial: 4.35 E/E' Med: 18.20 E/E' Lat: 15.80 PHT: 66.00 MVA PHT: 3.33 Decel [place]: 3.50 Aortic Valve AoV Pk Tripp: 4.22 AoV Mn Tripp: 3.22 AoV VTI: 1.09 AoV Pk Grad: 71.00 Aov Mn Grad: 45.00 TITO Cont.VTI: 0.45 LVOT LVOT Pk Tripp: 0.75 LVOT Mn Tripp: 0.47 LVOT VTI: 0.16 LVOT Pk Grad: 2.00 LVOT Mn Grad: 1.00 LVOT Diam: 2.00 LVOT Area: 3.14 Diastolic Function MV Pk E: 0.79 MV Pk A: 1.02 E/A: 0.80 E'Medial: 4.35 E/E' Med: 18.20 E' Laterial: 5.00 E/E' Lat: 15.80 Right Ventricle TAPSE (mm): 17.10 TVS' Tripp: 10.00 Tricuspid Valve TR Pk Tripp: 2.27 TR Pk Grad: 21.00 RA Press: 3.00 RVSP: 24.00 Great Vessels Aorta Sinus of Valsalva: 2.93 2.0-3.5 cm Ao Asc: 3.00 2.1-3.4 cm Updated in Other Vendor System with Status of Final Thanh Beckwith MD electronically signed on 12/31/2024 10:36:13 AM with status of Final
== END ==
LOC: HO.CARD 11:28
PROVIDERS: Absent Provider Nurse Practitioner Family; PCP Internal Medicine; Visit Provider Internal Medicine
DX: M79.641 Pain in right hand (principal); M79.642 Pain in left hand; I35.0 Nonrheumatic aortic (valve) stenosis
CPT/HCPCS: 73100; 73130; 93306; Q9957

== ENCOUNTER → 2024-12-30 11:37 | Outpatient (BNV) | payer MEDICARE, SELFPAY | PROVIDERS: Absent Provider Nurse Practitioner Family; PCP Internal Medicine; Visit Provider Radiology Diagnostic Radiology | DX: M85.841 Other specified disorders of bone density and structure, right hand (principal); M11.241 Other chondrocalcinosis, right hand | CPT/HCPCS: 73100; 73130 ==

== ENCOUNTER → 2024-12-30 14:35 | Outpatient (BNV) | payer MEDICARE, SELFPAY | PROVIDERS: Absent Provider Nurse Practitioner Family; PCP Internal Medicine; Visit Provider Internal Medicine Cardiovascular Disease | DX: I35.0 Nonrheumatic aortic (valve) stenosis (principal); I34.81 Nonrheumatic mitral (valve) annulus calcification; I34.0 Nonrheumatic mitral (valve) insufficiency; I36.1 Nonrheumatic tricuspid (valve) insufficiency | CPT/HCPCS: 93306 ==

== ENCOUNTER 2025-01-04 12:29 | Outpatient (REF) | payer MEDICARE, SELFPAY ==
[2025-01-04 14:18] LABS: INTERNATIONAL NORM RATIO 0.9 (0.9-1.1); Prothrombin Time 10.9 SEC (10.9-12.4)
[2025-01-04 14:32] LABS: Hematocrit 43.1 % (37.0-47.0); Hemoglobin 13.9 g/dl (12.0-16.0); Mean Corpuscular HGB Conc 32.3 g/dl (31.0-35.0); Mean Corpuscular Hemoglobin 28.4 pg (27.0-33.0); Mean Platelet Volume 9.8 fL (9.4-12.3); Platelet Count 255 X10*3/uL (160-400); Red Cell Distribution Width 15.3 % (11.0-16.0); White Blood Count 7.8 X10*3/uL (4.8-10.8)
[2025-01-04 14:39] LABS: Anion Gap 13 (12-20); Blood Urea Nitrogen 17 mg/dL (9-16); Calcium 10.2 mg/dL (8.4-10.2); Carbon Dioxide 26 mmol/L (22-29); Chloride 105 mmol/L (96-108); Estimated Glomerular Filt Rate 51; Glucose Random 90 mg/dL (60-115); Potassium 5.2 mmol/L (3.3-5.1); Sodium 139 mmol/L (135-145)
--- OUTSIDE RECORDS SUMMARY | 2025-01-04 16:10 | XMS_ITS | Clinical Summary ---
Author Organization [facility], Address [address] [place] [address] Phone Care Team Providers Care Prosthetics Lab Technician Name Role Phone Zuhair Singh MD Primary Care Provider [phone] Allergies No known active allergies Medications levothyroxine [...] patient's age to complete this topic Insurance [facility] Care Teams Prosthetics Lab Technician Relationship Specialty Start Date End Date Zuhair Singh MD [address] [place] [address] [phone] [place], [place] PCP - General Internal Medicine 12/25/20
== END 2025-01-04 12:30 | disposition home or self-care (01) ==
LOC: HO.LAB 12:29
PROVIDERS: PCP Internal Medicine; Visit Provider Internal Medicine Cardiovascular Disease
DX: I35.0 Nonrheumatic aortic (valve) stenosis (principal); I73.9 Peripheral vascular disease, unspecified; R42 Dizziness and giddiness; R06.09 Other forms of dyspnea; R58 Hemorrhage, not elsewhere classified; R41.3 Other amnesia; Z79.01 Long term (current) use of anticoagulants
CPT/HCPCS: 36415; 80048; 85027; 85610; 93005; 99212

== ENCOUNTER 2025-01-04 12:29 | Outpatient (AMB) | payer MEDICARE, SELFPAY ==
--- NOTE | 2025-01-04 12:39 | MHC.OFFVIS ---
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 Patient was 84-year-old female with prior history of thyroid disease, hypertension, mentioned peripheral vascular disease. Recently had an echocardiogram because of the murmur and this was noted to have severe to critical aortic stenosis. Patient presents here with her son. Patient currently lives with her son. Over the last several months she has been complaining that with exertion walking 50 ft she gets lightheaded. She denies any other symptoms although son notices some shortness of breath. She says she is very sedentary overall. She was no other heart failure symptoms of orthopnea, PND, leg edema. Denies any exertional chest pain. Her main complaint is numbness in his right arm. She denies any syncopal episodes. [facility] Medical History Renal cyst, acquired Arthritis of knee Shoulder pain Anal pain Thyroid disease Arthritis Hypothyroidism (acquired) Hard of hearing Kidney stones Hypertension Surgical History History of lithotripsy (~08/15/16) History of thyroidectomy Family History Father Myocardial infarct Mother Myocardial infarct Social History Housing: House Alcohol intake: never Patient Tobacco Use Status: Former Tobacco user e-Cigarette/Vaping Use: Former Use service: No Current occupational status: retired Cognitive needs: No Hearing needs: No Vision needs: Yes (rx glasses) Review of Systems Const Denies chills, Denies daytime sleepiness, Denies fatigue, Denies fever(s), Denies frequent falls, Denies poor appetite, Denies snoring, Denies stops breathing during sleep, Denies weakness, Denies weight gain and Denies weight loss Eyes Denies loss of vision ENT Denies dizziness and Denies hearing loss Card Denies chest pain, Denies claudication, Denies leg edema, Reports lightheadedness (With exertion), Denies palpitations, Denies dyspnea, Reports dyspnea on exertion and Denies orthopnea Resp Denies cough, Denies excessive phlegm production, Denies dyspnea, Reports dyspnea on exertion, Denies snoring and Denies wheezing GI Denies abdominal pain, Denies hematochezia, Denies change in bowel habits, Denies nausea and Denies vomiting Denies urinary frequency and Denies dysuria Musc Denies arthralgias, Denies muscle weakness, Denies numbness and Denies other (frequent falls) Skin/Breast Denies nail changes and Denies rash Neuro Denies Abnormal speech present, Denies dizziness, Denies frequent falls, Denies loss of vision, Denies memory loss, Denies numbness and Denies weakness Psych Denies depression and Denies memory loss Endo Denies fatigue and Denies palpitations Simone/Lymph Reports easy bruising and Reports other (anemia) Aller/Immun Denies wheezing Physical Exam Vital Signs: Last Vital Signs Pulse 59 01/04/25 12:40 BP 120/70 01/04/25 12:40 BMI result Body Mass Index 35.9 Const General: cooperative, comfortable, no acute distress, alert and awake Nutritional Appearance: obese Orientation/consciousness: patient oriented x3 Limitations: ambulation with cane HEENT Head: Yes normocephalic and Yes atraumatic Neck Neck: Yes trachea midline, Yes supple and Yes no JVD Carotids: delayed carotid upstroke and no bruits Resp Effort & Inspection: normal respiratory effort Auscultation: clear to auscultation bilaterally Cardio Jugular venous distension: no JVD Palpation: normal PMI Rate: regular rate Rhythm: regular rhythm Heart sounds: S1 normal heart sound present, no click, no gallops and Murmur heart sound present systolic late, decrescendo and crescendo GI Auscultation: normal bowel sounds Skin General skin exam: no rashes or lesions noted Neuro General: patient oriented x3 and no focal motor deficits Speech: No Abnormal speech present Extrem General: Yes no clubbing, cyanosis or edema Office Procedures EKG Details: EKG shows normal sinus rhythm with low-voltage QRS with poor R-wave progression most likely lead placement [id number], Complete Assessment & Plan Assessment & Plan (1) Aortic stenosis: Code(s): I35.0 - Nonrheumatic aortic (valve) stenosis Category: Medical Plan: Aortic stenosis which is severe to critical. Patient has symptoms exertional lightheadedness which are concerning for symptomatic aortic stenosis which was the most likely explanation at this point time. She requires aortic valve replacement. This was discussed clearly with her and her son. She was hard of hearing but was able to understand and wants to proceed with aortic valve replacement. We discussed the process of aortic valve replacement with transcatheter aortic valve replacement will be the procedure of choice for her. We discussed need for cardiac catheterization. We discussed the procedure of cardiac catheterization including, risks, benefits, alternatives. Will need lab work today. Following that she will need consultation for interventional cardiology as well as cardiac surgery to agree the need for transcatheter aortic valve replacement subsequently need CT scan of chest for aortic valve size evaluation as well as CT scan for femoral artery to assess for femoral artery size. This was discussed with her. Suggest low-dose aspirin therapy. These evaluation will happening in the very near future. Patient understands including with sudden. Possibly of pacemaker requirement post TAVR was discussed as well. Stroke possibility was discussed although benefits far outweigh the risk for transcatheter aortic valve replacement. Will follow up with her after cardiac catheterization and refer for TAVR evaluation Medications: New aspirin (Ecotrin Low Strength) 81 mg PO DAILY 30 tabs 1RF Thanh Beckwith MD Changed From metoprolol tartrate 25 mg PO DAILY 90 tabs 3RF To metoprolol tartrate 25 mg PO BID Rosa Isela Alcala MD Coding Level of Care Code New Pt Level 4 (13493) Complex EM visit Add On G2211 Diagnoses Aortic stenosis I35.0 CPT Codes EKG - CPT: 88858-[id number], Complete ([id number])
[2025-01-04 12:40] VITALS: BP 120/70; PULSE 59; BMI 35.9
--- OUTSIDE RECORDS SUMMARY | 2025-01-04 14:44 | XMS_ITS | Clinical Summary ---
Author Organization [facility], Address [address] [place] [address] Phone Care Team Providers Care Communications Senior Associate Name Role Phone Zuhair Singh MD Primary Care Provider [phone] Allergies No known active allergies Medications levothyroxine [...] patient's age to complete this topic Insurance [facility] Care Teams Communications Senior Associate Relationship Specialty Start Date End Date Zuhair Singh MD [address] [place] [address] [id number] [place], [place] PCP - General Internal Medicine 12/25/20
== END 2025-01-04 13:23 | disposition home or self-care (01) ==
LOC: HO.HCS 12:30
PROVIDERS: PCP Internal Medicine; Visit Provider Internal Medicine Cardiovascular Disease
DX: I35.0 Nonrheumatic aortic (valve) stenosis (principal)
CPT/HCPCS: 93010; 99214; G2211

== ENCOUNTER 2025-01-13 08:56 | Outpatient (REF) | payer MEDICARE, SELFPAY ==
--- OUTSIDE RECORDS SUMMARY | 2025-01-13 09:27 | XMS_ITS | Clinical Summary ---
Author Organization [facility], Address [address] [place] [address] Phone Care Team Providers Care Rn Document Improvement Name Role Phone Zuhair Singh MD Primary Care Provider [phone] Allergies No known active allergies Medications levothyroxine [...] patient's age to complete this topic Insurance [facility] Care Teams Rn Document Improvement Relationship Specialty Start Date End Date Zuhair Singh MD [address] [place] [address] [address] [place], [place] PCP - General Internal Medicine 12/25/20
== END 2025-01-13 08:57 | disposition home or self-care (01) ==
LOC: HO.SH 08:56
PROVIDERS: Visit Provider Internal Medicine
DX: Z01.118 Encounter for examination of ears and hearing with other abnormal findings (principal); H90.3 Sensorineural hearing loss, bilateral
CPT/HCPCS: 92557

== ENCOUNTER 2025-01-19 13:10 | Outpatient (AMB) | payer MEDICARE, SELFPAY ==
--- NOTE | 2025-01-19 13:16 | MHC.OFFVIS ---
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 Patient states she has pain in her feet and they are always cold. She always experiences cramping. 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 She reports persistent coldness in her feet and intermittent leg cramps for over a year. Her symptoms prevail predominantly at night and while sitting. The patient uses a rollator due to difficulty walking and requires a cane for balance over short distances. Her walking ability has diminished, now limited to approximately one block with frequent stops. She quit smoking over three decades ago after smoking a pack per day. She does complain of significant swelling of the lower extremities. She is scheduled for TAVR placement later this month. [ Patient denies any previous venous surgery or injections. Patient denies any history of DVT/ PE. Patient denies any history of phlebitis. Trial of compression includes - [id number] They now present for vascular evaluation regarding their varicose veins. [facility] Medical History Renal cyst, acquired Arthritis of knee Shoulder pain Anal pain Thyroid disease Arthritis Hypothyroidism (acquired) Hard of hearing Kidney stones Hypertension Surgical History History of colonoscopy (~06/16/16) History of lithotripsy (~08/15/16) History of thyroidectomy Family History Father Myocardial infarct Mother Myocardial infarct Social History Housing: House Alcohol intake: never Patient Tobacco Use Status: Former Tobacco user e-Cigarette/Vaping Use: Former Use service: No Current occupational status: retired Cognitive needs: No Hearing needs: No Vision needs: Yes (rx glasses) Review of Systems Const Reports as per HPI ENT Reports no additional complaints Card Denies chest pain, Denies chest pain at rest and Denies chest pain with activity Resp Denies chest congestion and Denies cough GI Reports no additional complaints Musc Details: pain over varicosities, aching of lower extremities, swelling, cramping, heaviness and tiredness, itching Denies abnormal gait Skin/Breast Reports pruritus and Denies wounds Neuro Reports no additional complaints and Denies abnormal gait Psych Denies no additional complaints Physical Exam Const General: cooperative, healthy appearing and comfortable Orientation/consciousness: oriented to person, oriented to place and oriented to time Neck Carotids: no bruits Chest Chest palpation & inspection: normal inspection of the chest and normal palpation of entire chest wall Resp Effort & Inspection: normal respiratory effort and able to speak in complete sentences Cardio Rate: regular rate Heart sounds: S1 normal heart sound present and S2 normal heart sound present Peripheral pulses: Peripheral pulses 2+ throughout GI Inspection: Yes normal to inspection Skin Other: +2 edema, CEAP Classification C4 - skin color changes Ep - Etiology Primary As - superficial veins P - reflux General skin exam: dry skin Neuro General: oriented to person, oriented to place and oriented to time Extrem Right lower extremity: full ROM, normal capillary refill and edema Left lower extremity: full ROM, normal capillary refill and edema Psych Mental Status: mental status grossly normal Assessment & Plan Assessment & Plan (1) PVD (peripheral vascular disease): Code(s): I73.9 - Peripheral vascular disease, unspecified Category: Medical Plan: At the current time she has palpable bilateral lower extremity pulses. Her lower extremity arterial status is stable. I do believe some of her issues may be cardiac related. We will continue to observe her lower extremities. I am interested to see what her overall condition after her TAVR procedure is. In addition she may have an element of Raynaud's syndrome. (2) Varicose veins of right lower extremity with inflammation: Code(s): I83.11 - Varicose veins of right lower extremity with inflammation Category: Medical Plan: She does have lower extremity swelling and I do believe some of this may be cardiogenic in nature. I have taken the liberty of ordering venous insufficiency testing but will wait till after her TAVR procedure. Thank you for allowing us to assist in her care. If there are any questions or concerns please do not hesitate to contact us. Orders: Orders US venous duplex LE BI 3 Months I83.11 - Varicose veins of right lower extremity with inflammation Coding Level of Care Code New Pt Level 4 (66491) Complex EM visit Add On G2211 Diagnoses PVD (peripheral vascular disease) I73.9 Varicose veins of right lower extremity with inflammation I83.11
--- OUTSIDE RECORDS SUMMARY | 2025-01-19 14:16 | XMS_ITS | Clinical Summary ---
Author Organization [facility], Address [address] [place] [address] Phone Care Team Providers Care Senior Maintenance Technician Name Role Phone Zuhair Singh MD Primary Care Provider [phone] Allergies No known active allergies Medications levothyroxine [...] patient's age to complete this topic Insurance [facility] Care Teams Senior Maintenance Technician Relationship Specialty Start Date End Date Zuhair Singh MD [address] [place] [address] [address] [place], [place] PCP - General Internal Medicine 12/25/20
== END 2025-01-19 13:46 | disposition home or self-care (01) ==
LOC: HO.HVS 13:11
PROVIDERS: PCP Internal Medicine; Visit Provider Surgery Vascular Surgery
DX: I73.9 Peripheral vascular disease, unspecified (principal); I83.11 Varicose veins of right lower extremity with inflammation
CPT/HCPCS: 99204; G2211

== ENCOUNTER → 2025-01-19 13:10 | Outpatient (BNVA) | payer MEDICARE, SELFPAY | PROVIDERS: PCP Internal Medicine; Visit Provider Surgery Vascular Surgery | DX: N64.4 Mastodynia (principal); M54.12 Radiculopathy, cervical region; E03.9 Hypothyroidism, unspecified; I73.9 Peripheral vascular disease, unspecified; I83.11 Varicose veins of right lower extremity with inflammation; I12.9 Hypertensive chronic kidney disease with stage 1 through stage 4 chronic kidney disease, or unspecified chronic kidney disease; I35.0 Nonrheumatic aortic (valve) stenosis; N18.9 Chronic kidney disease, unspecified; M79.641 Pain in right hand; M50.30 Other cervical disc degeneration, unspecified cervical region; Z87.442 Personal history of urinary calculi; Z87.891 Personal history of nicotine dependence | CPT/HCPCS: 99202; 99212 ==

== ENCOUNTER 2025-01-19 14:31 | Outpatient (AMB) | payer MEDICARE, SELFPAY ==
[2025-01-19 14:48] VITALS: BP 124/72; PULSE 62; TEMP 36.6; O2SAT 97
--- NOTE | 2025-01-19 14:48 | A.OFFPC_ITS ---
Vital Signs 01/19/25 14:48 Height 5 ft 6 in Weight 124 lb BMI 20.0 BP 124/72 Blood Pressure Location Lt brachial Pulse 62 Pulse Source Pulse Oximeter Temp 97.8 F Temp Source Axillary Pulse Oximetry (%) 97 Oxygen Delivery Method Room Air Intake Visit Reasons: Pain in Both Breast [employer] Supervisor Required: No Accompanied by: Self / Same As Patient Allergies No Known Allergies [No Known Allergies*] Allergy (Verified 01/19/25 14:48) Tobacco use date assessed: 01/19/25 Fall risk assessment: No Falls in past year Last assessed Fall Risk: 01/19/25 Dental Screening Dental Screen Date: 01/19/25 Did you have a dental visit in the last 12 months?: No Did you have a dental problem in the last 6 months where you did not have access to dental care?: No HPI HPI Comments History of Present Illness Details Heidi is an 84 year old female with a past medical history of renal cyst, nephrolithiasis, hypothyroid, hypertension, , CKD, presenting for follow up.Last seen in March by pcp CV: On metoprolol. no chest pain. Severe -following with cardiology, will see TAVR team MSK: Bilateral shoulder pain, bilateral hand pain, right sciatica. Worse in the shoulder-saw Dr Oliveira, bilateral hand pain. Fell two years ago. Increased bilateral lower anterior rib pain. stopped gabapentin at some point. Significant DDD with compression on cervical spinal cord, increased right hand pain. Hypothyroid: On levothyroxine 125mcg daily. Urology: follows with urology Mammo 05/12/2024: ROS see HPI PHYSICAL EXAM: GENERAL: Alert and oriented x 3. NAD EYES: EOMI. Anicteric. HENT: Moist mucous membranes. No scleral icterus. No cervical lymphadenopathy. LUNGS: Clear to auscultation bilaterally. CARDIOVASCULAR: Regular rate and rhythm. + murmur. No JVD. ABDOMEN: Soft, non-tender +bs EXTREMITIES: No edema. Non-tender. SKIN: No rashes or lesions. Warm. NEUROLOGIC: No focal neurological deficits. CN II-XII grossly intact PSYCHIATRIC: Cooperative. Appropriate mood and affect [facility] Medical History (Updated 01/22/25 @ 14:18 by Rosa Isela Alcala MD) Renal cyst, acquired Arthritis of knee Shoulder pain Anal pain Thyroid disease Arthritis Hypothyroidism (acquired) Hard of hearing Kidney stones Hypertension Surgical History History of colonoscopy (~06/16/16) History of lithotripsy (~08/15/16) History of thyroidectomy Family History (Updated 01/19/25 @ 15:03 by Charlee Diallo MA) Father Myocardial infarct Mother Myocardial infarct Social History Housing: House Alcohol intake: never Patient Tobacco Use Status: Former Tobacco user e-Cigarette/Vaping Use: Former Use service: No Current occupational status: retired Cognitive needs: No Hearing needs: No Vision needs: Yes (rx glasses) Questionnaire PHQ-9 Over the last 2 weeks, how often have you been bothered by any of the following problems? 1. Little interest or pleasure in doing things: not at all 2. Feeling down, depressed, or hopeless: not at all 3. Trouble falling or staying asleep, or sleeping too much: not at all 4. Feeling tired or having little energy: not at all 5. Poor appetite or overeating: not at all 6. Feeling bad about yourself - or that you are a failure or have let yourself or your family down: not at all 7. Trouble concentrating on things, such as reading the newspaper or watching television: not at all 8. Moving or speaking so slowly that other people could have noticed. Or the opposite - being so fidgety or restless that you have been moving around a lot more than usual: not at all 9. Thoughts that you would be better off or of hurting yourself in some way: not at all Total score: 0 Source: Developed by Drs. Jv Jacobson, Rosanna Mendoza, Quang Rojas and colleagues, with an educational manuel from [employer]. Thrive Questionnaire Date Thrive assessed: 01/19/25 I am a: Patient Within the past 12 months, did the food you bought not last and you didn't have the money to get more?: Never true Within the past 12 months, did you worry whether your food would run out before you got money to buy more?: Never true Do you have trouble paying for medicines?: No Do you have trouble getting transportation to medical appointments?: No Do you have trouble paying your heating and electricity bill?: No Do you have trouble taking care of your child, family member or friend?: No Do you have trouble with day-to-day activities such as bathing, preparing meals, shopping, managing finances, etc.?: No Are you currently unemployed and looking for a job?: No Are you interested in more education?: No THRIVE Score: 0 AUDIT C Alcohol Use Questionnaire (AUDIT-C) 1. How often do you have a drink containing alcohol?: Monthly or less 2. How many drinks containing alcohol do you have on a typical day when you are drinking?: 1 or 2 3. How often do you have six or more drinks on one occasion?: Less than monthly Total Score: 2 RAFA-7 AMB Questionnaire RAFA-7 Date RAFA - 7 assessed: 12/14/24 Feeling nervous, anxious, or on edge: 0 = Not at all Not being able to stop or control worryin = Not at all Worrying too much about different things: 0 = Not at all Trouble relaxin = Not at all Being so restless that it is hard to sit still: 0 = Not at all Becoming easily annoyed or irritable: 0 = Not at all Feeling afraid as if something awful might happen: 0 = Not at all Total RAFA-7 score (0-4 normal; 5-9 mild; 10-14 moderate; 15-21 severe): 0 Source: Developed by Drs. Jv Jacobson, Rosanna Mendoza, Quang Rojas and colleagues, with an educational manuel from [employer]. Physical exam (Primary Care) Vital Signs: Last Vital Signs Temp 97.8 F 01/19/25 14:48 Pulse 62 01/19/25 14:48 BP 124/72 01/19/25 14:48 Pulse Ox 97 01/19/25 14:48 Oxygen Delivery Method Room Air 01/19/25 14:48 BMI result Body Mass Index 20.0 Tobacco/Smoking Status: Tobacco use Status Tobacco use date assessed 01/19/25 01/19/25 14:50 Patient Tobacco Use Status Former Tobacco user 01/19/25 14:50 e-Cigarette/Vaping Use Former Use 01/19/25 14:50 PHQ-9: PHQ-9 Score PHQ-9: Total score 0 01/19/25 15:28 Thrive Assessment: Date of Thrive Assessment Date Thrive assessed 01/19/25 01/19/25 14:50 Coding Level of Care Code Est Pt Level 4 (19013) Diagnoses Cervical radiculopathy M54.12 Right hand pain M79.641 Aortic valve stenosis, etiology of cardiac valve disease unspecified I35.0 Cardiac valve disease etiology: etiology unspecified Assessment & Plan Assessment & Plan (1) Cervical radiculopathy: Code(s): M54.12 - Radiculopathy, cervical region Category: Medical (2) Right hand pain: Code(s): M79.641 - Pain in right hand Category: Medical (3) Aortic stenosis: Code(s): I35.0 - Nonrheumatic aortic (valve) stenosis Category: Medical Qualifiers: Cardiac valve disease etiology: etiology unspecified Qualified Code(s): I35.0 - Nonrheumatic aortic (valve) stenosis Plan Cervical DDD,bilateral shoulder pain, right hand pain, worse off gabapentin Bilateral chest pain-possibly costochondritis, thoracic radiculopathy. restart gabapentin Severe -continue follow up cardiology Orders: Orders CT cervical spine wo IV con 01/19/25 M50.30 - Other cervical disc degeneration, unspecified cervical region, M54.12 - Radiculopathy, cervical region NE electromyogram (EMG) 01/19/25 M79.641 - Pain in right hand
--- OUTSIDE RECORDS SUMMARY | 2025-01-19 15:17 | XMS_ITS | Clinical Summary ---
Author Organization [facility], Address [address] [place] [address] Phone Care Team Providers Care Cloth Presser Name Role Phone Zuhair Singh MD Primary Care Provider [phone] Allergies No known active allergies Medications levothyroxine [...] patient's age to complete this topic Insurance [facility] Care Teams Cloth Presser Relationship Specialty Start Date End Date Zuhair Singh MD [address] [place] [address] [id number] [place], [place] PCP - General Internal Medicine 12/25/20
== END 2025-01-19 16:20 | disposition home or self-care (01) ==
LOC: HO.HMCHD 14:31
PROVIDERS: PCP Internal Medicine; Visit Provider Internal Medicine
DX: M54.12 Radiculopathy, cervical region (principal); M79.641 Pain in right hand; I35.0 Nonrheumatic aortic (valve) stenosis

== ENCOUNTER → 2025-01-26 23:59 | Outpatient (BNV) | payer MEDICARE, SELFPAY | PROVIDERS: PCP Internal Medicine; Visit Provider Internal Medicine Cardiovascular Disease | DX: I35.0 Nonrheumatic aortic (valve) stenosis (principal) | CPT/HCPCS: 93458; 99152 ==

== ENCOUNTER 2025-01-30 10:17 | Outpatient (AMB) | payer MEDICARE, SELFPAY ==
[2025-01-30 10:24] VITALS: BP 130/70; PULSE 70; BMI 36.1
--- NOTE | 2025-01-30 10:24 | MHC.OFFVIS ---
Vital Signs 01/30/25 10:24 Height 5 ft 6 in Weight 223 lb 8.78 oz BMI 36.1 BP 130/70 Blood Pressure Location Lt brachial Position Sitting Pulse 70 Pulse Source Monitor Intake Visit Reasons: TAVR Consult (NS) Intake Note: TAVR Consult(NS) Buffer Copper Required: No Accompanied by: Son Allergies No Known Allergies [No Known Allergies*] Allergy (Verified 01/19/25 14:48) Medication List - Last Reconciled 01/30/25 by Shaun Cutler MD acetaminophen 500 mg PO Q6H PRN aspirin (Ecotrin Low Strength) 81 mg PO DAILY diclofenac sodium 1% (Arthritis Pain (diclofenac)) 4 grams topical QID levothyroxine 125 mcg PO DAILY metoprolol tartrate 25 mg PO BID nystatin 1 appl topical TID PRN Ultra-Light Rollator (walker) As directed NS HPI Comments Details: [age] year lady here for severe aortic valve stenosis and discussion about transcatheter aortic valve replacement. She had where cardiac catheterization recently which showed no significant coronary artery disease. Echocardiography has confirmed severe aortic valve stenosis. She is not very active in her day-to-day life but denies any symptoms with activities that she does. She has significant arthritis which limits her mobility. She has background history of degenerative disc disease and cervical radiculopathy, varicose veins, peripheral vascular disease, hypertension, hypothyroidism and gallstones. She has seen surgery already who have recommended TAVR versus surgical valve replacement. She also had TAVR protocol CT performed which we will review. [facility] Medical History (Updated 01/22/25 @ 14:18 by Rosa Isela Alcala MD) Renal cyst, acquired Arthritis of knee Shoulder pain Anal pain Thyroid disease Arthritis Hypothyroidism (acquired) Hard of hearing Kidney stones Hypertension Surgical History (Updated 01/30/25 @ 10:28 by Jasmin Galeas CMA) Hx of cardiac cath History of colonoscopy (~06/16/16) History of lithotripsy (~08/15/16) History of thyroidectomy Family History Father Myocardial infarct Mother Myocardial infarct Social History Housing: House Alcohol intake: never Patient Tobacco Use Status: Former Tobacco user e-Cigarette/Vaping Use: Former Use service: No Current occupational status: retired Cognitive needs: No Hearing needs: No Vision needs: Yes (rx glasses) Review of Systems Const Denies chills, Denies fatigue, Denies fever(s), Denies frequent falls, Denies weakness, Denies weight gain and Denies weight loss ENT Denies dizziness Card Denies chest pain, Denies leg edema, Denies lightheadedness, Denies palpitations, Denies dyspnea and Denies dyspnea on exertion Resp Denies cough, Denies dyspnea and Denies dyspnea on exertion GI Denies hematochezia Musc Denies abnormal gait, Denies muscle weakness, Denies numbness, Denies radiating pain into limb and Denies tingling Neuro Denies abnormal gait, Denies dizziness, Denies frequent falls, Denies numbness, Denies tingling and Denies weakness Endo Denies fatigue and Denies palpitations Physical Exam Vital Signs: Last Vital Signs Pulse 70 01/30/25 10:24 BP 130/70 01/30/25 10:24 BMI result Body Mass Index 36.1 GENERAL APPEARANCE: in no acute distress, pleasant. NECK: no carotid bruit, no jugular venous distention. SKIN: no suspicious lesions, warm and dry. HEART: Ejection systolic murmur with absent 2nd heart sound, regular rate and rhythm. LUNGS: clear to auscultation bilaterally. ABDOMEN: soft, nontender. EXTREMITIES: no edema. PERIPHERAL PULSES: equal. NEUROLOGIC: No gross deficits, AAO X 3 Office Procedures EKG Details: Sinus rhythm 70 beats per minute, normal axis, can not rule out anterior infarct, QTC 421 milliseconds. [id number], Complete Assessment & Plan Assessment & Plan (1) Aortic stenosis: Code(s): I35.0 - Nonrheumatic aortic (valve) stenosis Category: Medical Qualifiers: Cardiac valve disease etiology: etiology unspecified Qualified Code(s): I35.0 - Nonrheumatic aortic (valve) stenosis (2) Hypertension: Code(s): I10 - Essential (primary) hypertension Category: Medical Plan 84-year-old female presenting for discussion about transcatheter aortic valve replacement. She has severe aortic valve stenosis. She has limited mobility due to arthritis and currently he is denying any symptoms. By our assessment of the aortic valve is clearly severe. We discussed about natural history of aortic valve stenosis and treatment options. We discussed about surgical versus transcatheter aortic valve replacement. The patient is more interested in transcatheter aortic valve replacement. We discussed about potential complications including bleeding, vascular injury, infection, stroke, pacemaker placement and . After discussion with the patient is in favor of transcatheter aortic valve replacement. Her son accompanied her who also participated in the discussion and understood the management plan. We will review her TAVR protocol CT and discuss her case in the upcoming heart team meeting. Once the plan is clear we will update the patient and we will schedule her for procedure. Blood pressure is well controlled currently. Clinically euvolemic. Thank you for allowing me to participate in the care of your patient. Please feel free to contact me if you have any questions. Coding Level of Care Code New Pt Level 5 (71977) Diagnoses Aortic valve stenosis, etiology of cardiac valve disease unspecified I35.0 Cardiac valve disease etiology: etiology unspecified Hypertension I10 CPT Codes EKG - CPT: 07937-[id number], Complete ([id number])
--- OUTSIDE RECORDS SUMMARY | 2025-01-30 10:53 | XMS_ITS | Clinical Summary ---
Author Organization [facility], Address [address] [place] [address] Phone Care Team Providers Care Director Of Operations Home Health Name Role Phone Zuhair Singh MD Primary Care Provider [phone] Allergies No known active allergies Medications levothyroxine [...] patient's age to complete this topic Insurance [facility] Care Teams Director Of Operations Home Health Relationship Specialty Start Date End Date Zuhair Singh MD [address] [place] [address] [id number] [place], [place] PCP - General Internal Medicine 12/25/20
== END 2025-01-30 11:06 | disposition home or self-care (01) ==
LOC: HO.HCS 10:17
PROVIDERS: PCP Internal Medicine; Visit Provider Internal Medicine Cardiovascular Disease
DX: I35.0 Nonrheumatic aortic (valve) stenosis (principal); I10 Essential (primary) hypertension; R94.31 Abnormal electrocardiogram [ECG] [EKG]
CPT/HCPCS: 93010; 99214

== ENCOUNTER → 2025-01-30 10:17 | Outpatient (BNVA) | payer MEDICARE, SELFPAY | PROVIDERS: PCP Internal Medicine; Visit Provider Internal Medicine Cardiovascular Disease | DX: I35.0 Nonrheumatic aortic (valve) stenosis (principal); I10 Essential (primary) hypertension | CPT/HCPCS: 93005; 99212 ==

== ENCOUNTER 2025-02-14 10:30 | Outpatient (REF) | payer MEDICARE, SELFPAY ==
--- NOTE | 2025-02-14 10:33 | EMG_ITS ---
Right median and ulnar motor and sensory studies were performed. Right radial sensory study was performed and paraspinal muscles were tested with a needle. IMPRESSION: Moderately severe right median neuropathy across carpal tunnel. MD NICHOLE Fitzgerald/ALISA / [id number]
--- OUTSIDE RECORDS SUMMARY | 2025-02-14 12:06 | XMS_ITS | Clinical Summary ---
Author Organization [facility], Address [address] [place] [address] Phone Care Team Providers Care Drafter [employer]otive Design Name Role Phone Zuhair Singh MD Primary Care Provider [phone] Allergies No known active allergies Medications levothyroxine [...] patient's age to complete this topic Insurance [facility] Care Teams Drafter [employer] Design Relationship Specialty Start Date End Date Zuhair Singh MD [address] [place] [address] [id number] [place], [place] PCP - General Internal Medicine 12/25/20
== END 2025-02-14 10:31 | disposition home or self-care (01) ==
LOC: HO.NEURO 10:30
PROVIDERS: PCP Internal Medicine; Visit Provider Internal Medicine
DX: M79.641 Pain in right hand (principal); M54.12 Radiculopathy, cervical region
CPT/HCPCS: 95886; 95909

== ENCOUNTER 2025-04-15 09:20 | Outpatient (REF) | payer MEDICARE, SELFPAY ==
--- NOTE | ~2025-04-15 | CT_ITS ---
CLINICAL HISTORY: M50.30 - Other cervical disc degeneration, unspecified cervical region CT cervical spine without contrast Comparison: 03/10/2023 Findings: Cervical spine straightening also present on prior study. No acute fracture. Mild grade 1 listhesis noted at a few levels. 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 Thyroidectomy. Atherosclerotic calcifications. IMPRESSION: No significant change in multilevel cervical spine degenerative changes. This document has been electronically signed by: Lety Aguirre MD on 04/17/2025 11:41:20
== END 2025-04-15 09:21 | disposition home or self-care (01) ==
LOC: HO.CT 09:20
PROVIDERS: PCP Internal Medicine; Visit Provider Internal Medicine
DX: M54.12 Radiculopathy, cervical region (principal); M50.30 Other cervical disc degeneration, unspecified cervical region
CPT/HCPCS: 72125

== ENCOUNTER → 2025-04-15 10:15 | Outpatient (BNV) | payer MEDICARE, SELFPAY | PROVIDERS: PCP Internal Medicine; Visit Provider Radiology Diagnostic Radiology | DX: M50.30 Other cervical disc degeneration, unspecified cervical region (principal) | CPT/HCPCS: 72125 ==

== ENCOUNTER 2025-05-16 08:56 | Outpatient (AMB) | payer MEDICARE, SELFPAY ==
--- NOTE | 2025-05-16 09:09 | MHC.PC.OV ---
Vital Signs 05/16/25 09:14 Height 5 ft 6 in Weight 212 lb 2 oz BMI 34.2 BP 130/66 Blood Pressure Location Lt brachial Position Sitting Respiration 14 Pulse 77 Pulse Source Pulse Oximeter Temp 98.3 F Temp Source Oral Pulse Oximetry (%) 98 Oxygen Delivery Method Room Air Intake Visit Reasons: ANNUAL PE - see comments Intake Note: Physcial Allergies No Known Allergies (No Known Allergies*) Allergy (Verified 05/16/25 09:12) Medication List - Last Reconciled 05/16/25 by Rosa Isela Alcala MD aspirin (Ecotrin Low Strength) 81 mg PO DAILY levothyroxine 125 mcg PO 5XW metoprolol tartrate 25 mg PO BID Ultra-Light Rollator (walker) As directed NS Tobacco use date assessed: 05/16/25 Fall risk assessment: No Falls in past year Last assessed Fall Risk: 05/16/25 Dental Screening Dental Screen Date: 01/19/25 HPI HPI Comments History of Present Illness Details Heidi is an 85 year old female with a past medical history of renal cyst, nephrolithiasis, hypothyroid, hypertension, , CKD, presenting for annual CV: On metoprolol 25 twice daily. no chest pain. Severe . She delayed TAVR. Tentatively scheduled for 06/06/25 MSK: Bilateral shoulder pain, bilateral hand pain, right sciatica. Previously seen by Dr Oliveira, bilateral hand pain-right most severe. EMG c/w right carpal tunnel. Fell two years ago. Increased bilateral lower anterior rib pain. Significant DDD with compression on cervical spinal cord, increased right hand pain. Hypothyroid: On levothyroxine 125mcg daily. Urology: follows with urology Mammo 05/12/2024, Schedule Request podiatry -thickened toenails and dermatology consult-skin lesions, picking. Patient lives with son who works time recorder. She has mild memory deficit. She has had falls in the past, difficulty showering, completely ADLs independently ROS see HPI PHYSICAL EXAM: GENERAL: Alert and oriented x 3. NAD EYES: EOMI. Anicteric. HENT: Moist mucous membranes. No scleral icterus. No cervical lymphadenopathy. LUNGS: Clear to auscultation bilaterally. CARDIOVASCULAR: Regular rate and rhythm. + murmur. No JVD. ABDOMEN: Soft, non-tender +bs EXTREMITIES: No edema. Non-tender. SKIN: No rashes or lesions. Warm. NEUROLOGIC: No focal neurological deficits. CN II-XII grossly intact PSYCHIATRIC: Cooperative. Appropriate mood and affect [facility] Medical History Renal cyst, acquired Arthritis of knee Shoulder pain Anal pain Thyroid disease Arthritis Hypothyroidism (acquired) Hard of hearing Kidney stones Hypertension Surgical History Hx of cardiac cath History of colonoscopy (~06/16/16) History of lithotripsy (~08/15/16) History of thyroidectomy Family History Father Myocardial infarct Mother Myocardial infarct Social History Housing: House Alcohol intake: never Patient Tobacco Use Status: Former Tobacco user e-Cigarette/Vaping Use: Former Use service: No Current occupational status: retired Cognitive needs: No Hearing needs: No Vision needs: Yes (rx glasses) Questionnaire PHQ-9 Over the last 2 weeks, how often have you been bothered by any of the following problems? 1. Little interest or pleasure in doing things: nearly every day 2. Feeling down, depressed, or hopeless: nearly every day 3. Trouble falling or staying asleep, or sleeping too much: nearly every day 4. Feeling tired or having little energy: nearly every day 5. Poor appetite or overeating: not at all 6. Feeling bad about yourself - or that you are a failure or have let yourself or your family down: nearly every day 7. Trouble concentrating on things, such as reading the newspaper or watching television: not at all 8. Moving or speaking so slowly that other people could have noticed. Or the opposite - being so fidgety or restless that you have been moving around a lot more than usual: more than half the days 9. Thoughts that you would be better off or of hurting yourself in some way: nearly every day Total score: 20 Depression Screening Interpretation: Positive Depression Screening Follow-up: Declines treatment Depression Screening Done: Yes 94976 - PHQ-9 Billing: Yes Source: Developed by Drs. Jv Jacobson, Rosanna Mendoza, Quang Rojas and colleagues, with an educational manuel from [employer] Thrive Questionnaire Date Thrive assessed: 01/19/25 I am a: Patient What is your living situation today?: I choose not to answer this question Within the past 12 months, did the food you bought not last and you didn't have the money to get more?: Sometimes True Within the past 12 months, did you worry whether your food would run out before you got money to buy more?: I choose not to answer this question Do you have trouble paying for medicines?: No Do you have trouble getting transportation to medical appointments?: Yes Do you have trouble paying your heating and electricity bill?: Yes Do you have trouble taking care of your child, family member or friend?: No Do you have trouble with day-to-day activities such as bathing, preparing meals, shopping, managing finances, etc.?: No Are you currently unemployed and looking for a job?: No Are you interested in more education?: No Please select the resources that you would like help with: Housing/Skilled Nursing, Food, Paying for medicine, Transportation, Utilities, Care for elder or disabled and Daily support Currently or been in a relationship where the following occur: No concerns reported THRIVE Score: 3 AUDIT C Alcohol Use Questionnaire (AUDIT-C) 1. How often do you have a drink containing alcohol?: Never Total Score: 0 RAFA-7 AMB Questionnaire RAFA-7 Date RAFA - 7 assessed: 12/14/24 Feeling nervous, anxious, or on edge: 3 = Nearly every day Not being able to stop or control worryin = Nearly every day Worrying too much about different things: 3 = Nearly every day Trouble relaxin = Nearly every day Being so restless that it is hard to sit still: 2 = More than half the days Becoming easily annoyed or irritable: 3 = Nearly every day Feeling afraid as if something awful might happen: 3 = Nearly every day Total RAFA-7 score (0-4 normal; 5-9 mild; 10-14 moderate; 15-21 severe): 20 Source: Developed by Drs. Jv Jacobson, Rosanna Mendoza, Quang Rjoas and colleagues, with an educational manuel from [employer] Physical exam (Primary Care) Vital Signs: Last Vital Signs Temp 98.3 F 05/16/25 09:14 Pulse 77 05/16/25 09:14 Resp 14 05/16/25 09:14 BP 130/66 05/16/25 09:14 Pulse Ox 98 05/16/25 09:14 Oxygen Delivery Method Room Air 05/16/25 09:14 BMI result Body Mass Index 34.2 Tobacco/Smoking Status: Tobacco use Status Tobacco use date assessed 05/16/25 05/16/25 09:19 Patient Tobacco Use Status Former Tobacco user 05/16/25 09:10 e-Cigarette/Vaping Use Former Use 05/16/25 09:10 PHQ-9: PHQ-9 Score PHQ-9: Total score 20 05/17/25 13:24 Depression Screening Interpretation: Positive Depression Screening Follow-up: Declines treatment Thrive Assessment: Date of Thrive Assessment Date Thrive assessed 01/19/25 05/16/25 09:10 Currently or been in a relationship where the following occur: No concerns reported Coding Level of Care Code Est Pt Prev Care >65y(87834) Diagnoses Physical exam Z00.00 Right hand pain M79.641 Onychomycosis B35.1 Aortic valve stenosis, etiology of cardiac valve disease unspecified I35.0 Cardiac valve disease etiology: etiology unspecified Frail elderly R54 Additional Codes PHQ-9 - 55025 - PHQ-9 Billing: Yes ([id number]) Assessment & Plan Assessment & Plan (1) Physical exam: Code(s): Z00.00 - Encounter for general adult medical examination without abnormal findings (2) Right hand pain: Code(s): M79.641 - Pain in right hand Category: Medical (3) Onychomycosis: Code(s): B35.1 - Tinea unguium Category: Medical (4) Aortic stenosis: Code(s): I35.0 - Nonrheumatic aortic (valve) stenosis Category: Medical Qualifiers: Cardiac valve disease etiology: etiology unspecified Qualified Code(s): I35.0 - Nonrheumatic aortic (valve) stenosis (5) Frail elderly: Code(s): R54 - Age-related physical debility Category: Medical Plan 85 year old for CPE Interval history reviewed Hypothyroid-Continue levothyroxine HTN-continue metoprolol Elderly-needs home health evaluation Referral podiatry Carpal tunnel -referred to hand Orders: Orders Complete Blood Count Auto Diff 05/16/25 I10 - Essential (primary) hypertension, I35.0 - Nonrheumatic aortic (valve) stenosis, Z00.00 - Encounter for general adult medical examination without abnormal findings TSH reflex Free T4 05/16/25 I10 - Essential (primary) hypertension, I35.0 - Nonrheumatic aortic (valve) stenosis, Z00.00 - Encounter for general adult medical examination without abnormal findings Comprehensive Met. Panel 05/16/25 I10 - Essential (primary) hypertension, I35.0 - Nonrheumatic aortic (valve) stenosis, Z00.00 - Encounter for general adult medical examination without abnormal findings Lipid Panel 05/16/25 I10 - Essential (primary) hypertension, I35.0 - Nonrheumatic aortic (valve) stenosis, Z00.00 - Encounter for general adult medical examination without abnormal findings Referrals Dermatology Referral L98.9 - Disorder of the skin and subcutaneous tissue, unspecified Podiatry Referral B35.1 - Tinea unguium Home Health Referral R54 - Age-related physical debility Orthopedics Referral G56.00 - Carpal tunnel syndrome, unspecified upper limb Nurse Navigator Referral R54 - Age-related physical debility Medications: Changed From levothyroxine 125 mcg PO 5XW To levothyroxine 5x/wk 125 mcg PO DAILY 90 tabs 0RF
[2025-05-16 09:14] VITALS: BP 130/66; PULSE 77; RESP 14; TEMP 36.8; O2SAT 98; BMI 34.2
--- OUTSIDE RECORDS SUMMARY | 2025-05-16 09:44 | XMS_ITS | Clinical Summary ---
Author Organization [facility], Address [address] [place] [address] Phone Care Team Providers Care Internal Audit Consultant Name Role Phone Zuhair Singh MD Primary Care Provider [phone] Allergies No known active allergies Medications levothyroxine [...] of 1 - PCV) 1991 Influenza Vaccine (#1) 2025 Hepatitis B Vaccine Aged Out No longe r eligible based on patient's age to complete this topic Insurance [facility] Care Teams Internal Audit Consultant Relationship Specialty Start Date End Date Zuhair Singh MD [address] [place] [address] [address] [place], [place] PCP - General Internal Medicine 12/25/20
--- OUTSIDE RECORDS SUMMARY | 2025-05-16 09:44 | XMS_ITS | Patient Health Record ---
Author Organization [facility] Address [address] [place] [address] Care Team Providers Care Bag Grader Name Role Phone Samantha (RETIRED) Zuhair CALDERA Primary Care Provide r Unavailable Jv Johnson Unavailable [phone] Reason For Referral No Information Medications Medication SIG (Take, Route, Frequency, Duration) Notes Start Date End Date Status traMADol HCl 50 MG Orally PRN--not daily Active Metoprolol Tartrate 25 MG 1 tablet with food Orally qd Active Levothyroxine Sodium 125 MCG 1 capsule Orally Once a day Active Problems Problem Type SNOMED Code ICD Code Onset Dates Problem Status W/U Status Risk Notes Problem [id number] Encounter for screening for malignant neoplasm of colon (Z12.11) Active confirmed Problem Encounter for screening for malignant neoplasm of rectum (Z12.12) Active confirmed Problem [id number] Preprocedural examination (Z01.818) Active confirmed Plan Of Treatment Pending Test Test Name Order Date GI BIOPSY 06/16/2016 Future Test Test Name Order Date COLONOSCOPY 02/14/2016 Insurance Providers Payer Name Payer Address Payer Phone Subscriber Number Group Number Insured Name Patient Relationship to Insured Coverage Start Date Coverage End Date [facility] [address] [place] [phone] [id number] SIRENA FLORES Self - patient is the insured Medical (General) History Medical History History ICD Code Screening colonoscopy 005--only hyperplastic polyps, mild sigmoid diverticulosis, internal hemorrhoids Hypertension Arthritis--knees, shoulder Kidney stones--ESWL Denies NH,DM,CVA,Lung disease,renal dise ase Bulging disc in the lower back Hypothyroidism EGD in March [address] John ponce was unremarkable, although gastric biopsies did reveal H. pylori Surgical History Surgery Date(Month/Year) Appendectomy Thyroidectomy Cataracts and lens implants
== END 2025-05-16 09:48 | disposition home or self-care (01) ==
LOC: HO.HMCFM 08:57
PROVIDERS: PCP Internal Medicine; Visit Provider Internal Medicine
DX: Z00.00 Encounter for general adult medical examination without abnormal findings (principal); M79.641 Pain in right hand; B35.1 Tinea unguium; I35.0 Nonrheumatic aortic (valve) stenosis; R54 Age-related physical debility

== ENCOUNTER 2025-05-16 08:56 | Outpatient (REF) | payer MEDICARE, SELFPAY ==
[2025-05-16 11:07] LABS: MANUAL DIFF FLAG NO
[2025-05-16 11:11] LABS: Hematocrit 41.2 % (37.0-47.0); Hemoglobin 13.3 g/dl (12.0-16.0); Imm Gran Abs Auto 0.03 X10*3/uL (0.00-0.03); Imm Gran Pct Auto 0.4 % (0.0-0.4); Lymphocytes Absolute Auto 1.6 X10*3/uL (1.2-4.9); Mean Corpuscular HGB Conc 32.3 g/dl (31.0-35.0); Mean Corpuscular Hemoglobin 27.3 pg (27.0-33.0); Mean Corpuscular Volume 84.4 fL (80.0-98.0); NRBC Abs Auto 0.000 X10*3/uL (0.0-0.012); NRBC Pct Auto 0.0 /100WBC (0.0-0.2); Platelet Count 229 X10*3/uL (160-400); Red Blood Count 4.88 X10*6/uL (4.20-5.50); White Blood Count 6.8 X10*3/uL (4.8-10.8)
[2025-05-16 15:06] LABS: Alanine Aminotransferase 13 U/L (0-31); Albumin Level 4.2 g/dL (3.5-5.0); Alkaline Phosphatase 65 U/L (39-117); Anion Gap 13 (12-20); Aspartate Amino Transferase 25 U/L (5-31); Blood Urea Nitrogen 11 mg/dL (9-16); Calcium 9.7 mg/dL (8.4-10.2); Carbon Dioxide 24 mmol/L (22-29); Chloride 108 mmol/L (96-108); Cholesterol 215 mg/dL (<200); Estimated Glomerular Filt Rate 55; HDL Cholesterol 34 mg/dL (>40); Potassium 4.4 mmol/L (3.3-5.1); Sodium 141 mmol/L (135-145); Total Protein 7.0 g/dL (6.5-8.0); Triglycerides 167 mg/dL (<150)
== END 2025-05-16 08:57 | disposition home or self-care (01) ==
LOC: HO.WFDLDS 08:56
PROVIDERS: PCP Internal Medicine; Visit Provider Internal Medicine
DX: Z00.00 Encounter for general adult medical examination without abnormal findings (principal); I35.0 Nonrheumatic aortic (valve) stenosis; I10 Essential (primary) hypertension; M79.641 Pain in right hand; B35.1 Tinea unguium; R54 Age-related physical debility; Z79.82 Long term (current) use of aspirin; Z79.890 Hormone replacement therapy; Z79.899 Other long term (current) drug therapy
CPT/HCPCS: 36415; 80053; 80061; 84443; 85025; 96127; 99397

== ENCOUNTER 2025-05-18 13:22 | Outpatient (REF) | payer MEDICARE, SELFPAY ==
--- NOTE | ~2025-05-18 | MM_ITS ---
EXAMINATION: MM SCREENING DIGITAL BREAST TOMOSYNTHESIS, BILATERAL CLINICAL INFORMATION: Screening. Asymptomatic. COMPARISON: Mammography: Comparison is made with available priors TECHNIQUE: Digital breast mammography with tomosynthesis is performed in both the craniocaudal and mediolateral oblique views along with computer-aided detection (CAD). FINDINGS: There are scattered areas of fibroglandular density (ACR BI-RADS breast composition Category b). There are no significant masses, abnormal calcifications, or other abnormalities. MM/MM tomosynthesis screening BI IMPRESSION: No mammographic evidence of malignancy. ASSESSMENT: BI-RADS BI-RADS 1 - Negative RECOMMENDATION: Routine annual mammography screening. 1 year F/U This examination should not preclude the clinical evaluation of a suspicious palpable abnormality. This patient's information was entered into a reminder system with a target due date for their next mammogram. Electronically signed by: Jodie Galdamez DO 05/22/2025 03:40 PM EDT
--- OUTSIDE RECORDS SUMMARY | 2025-05-18 14:39 | XMS_ITS | Clinical Summary ---
Author Organization [facility], Address [address] [place] [address] Phone Care Team Providers Care Psychological Operations Officer Name Role Phone Zuhair Singh MD Primary Care Provider [phone] Allergies No known active allergies Medications levothyroxine [...] patient's age to complete this topic Insurance [facility] Care Teams Psychological Operations Officer Relationship Specialty Start Date End Date Zuhair Singh MD [address] [place] [address] [id number] [place], [place] PCP - General Internal Medicine 12/25/20
--- OUTSIDE RECORDS SUMMARY | 2025-05-18 14:39 | XMS_ITS | Patient Health Record ---
Author Organization [facility] Address [address] [place] [address] Care Team Providers Care Java Portal Developer Name Role Phone Samantha (RETIRED) Zuhair CALDERA Primary Care Provide r Unavailable Jv Johnson Unavailable [phone] Reason For Referral No Information Medications Medication [...] Problem Status W/U Status Risk Notes Problem [id number] Encounter for screening for malignant neoplasm of colon (Z12.11) Active confirmed Problem Screening for malignant neoplasm of rectum (576567436) Encounter for screening for malignant neoplasm of rectum (Z12.12) Active confirmed Problem 88958739 Preprocedural examination (Z01.818) Active confirmed Plan Of Treatment Pending Test Test Name Order Date GI BIOPSY 06/16/2016 Future Test Test Name Order Date COLONOSCOPY 02/14/2016 Insurance Providers Payer Name Payer Address Payer Phone Subscriber Number Group Number Insured Name Patient Relationship to Insured Coverage Start Date Coverage End Date [facility] [address] [place] [phone] [id number] SIRENA FLORES Self - patient is the insured Medical (General) History Medical History History ICD Code Screening colonoscopy 005--only hyperplastic polyps, mild sigmoid diverticulosis, internal hemorrhoids Hypertension Arthritis--knees, shoulder Kidney stones--ESWL Denies [place],DM,CVA,Lung disease,renal dise ase Bulging disc in the lower back Hypothyroidism EGD in March [address] John ponce was unremarkable, although gastric biopsies did reveal H. pylori Surgical History Surgery Date(Month/Year) Appendectomy Thyroidectomy Cataracts and lens implants
== END 2025-05-18 13:23 | disposition home or self-care (01) ==
LOC: HO.MAMMO 13:22
PROVIDERS: PCP Internal Medicine; Visit Provider Internal Medicine
DX: Z12.31 Encounter for screening mammogram for malignant neoplasm of breast (principal)
CPT/HCPCS: 77063; 77067

== ENCOUNTER → 2025-05-18 14:30 | Outpatient (BNV) | payer MEDICARE, SELFPAY | PROVIDERS: PCP Internal Medicine; Visit Provider Internal Medicine | DX: Z12.31 Encounter for screening mammogram for malignant neoplasm of breast (principal) | CPT/HCPCS: 77063; 77067 ==

== ENCOUNTER → 2025-06-06 23:59 | Outpatient (BNV) | payer MEDICARE, SELFPAY | PROVIDERS: PCP Internal Medicine; Visit Provider Internal Medicine Cardiovascular Disease | DX: I35.0 Nonrheumatic aortic (valve) stenosis (principal); Z00.6 Encounter for examination for normal comparison and control in clinical research program | CPT/HCPCS: 33361; 99152 ==

== ENCOUNTER → 2025-06-28 08:34 | Outpatient (REF) | payer MEDICARE, SELFPAY ==
--- NOTE | 2025-06-28 08:37 | CA_ITS ---
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 Normal LV ejection fraction of 60 65% with grade 1 diastolic dysfunction 2. Normally function bioprosthetic aortic valve with mean gradient of 5 mm Hg 3. No gross pericardial effusion Findings Procedure Information The study quality is limited by the patients inability to tolerate the test. Left Ventricle Normal left ventricular size, thickness, and systolic function. The visually estimated ejection fraction is between 60-65%. Spectral Doppler is indicative of an impaired relaxation filling pattern. E/E prime ratio is <8, consistent with normal filling pressures. Evidence suggests grade I (mild) diastolic dysfunction. Right Ventricle The right ventricle was not well visualized. Atria The left atrium is normal in size. There is no evidence of interatrial shunt. The right atrium is normal in size. Aortic Valve A bioprosthetic aortic valve is present. The prosthetic aortic valve appears to be functioning normally. The mean gradient is 5 mmHg. Mitral Valve Likely normal mitral valve structure and function. There is trace mitral valve regurgitation. There is no mitral valve stenosis. Pulmonic Valve The pulmonic valve was not well visualized. Tricuspid Valve Likely normal tricuspid valve structure and function. Tricuspid regurgitation envelope is inadequate for calculation of right ventricular systolic pressure. Normal right atrial pressure. Great Vessels All visible segments of the aorta are normal in size. The pulmonary artery was not well visualized. Venous The inferior vena cava is normal in size and collapses greater than 50% with inspiration. Pericardium/Pleural There is no evidence of pericardial effusion. Prior Study Comparison Changes noted compared to prior study dated: 12/30/2024. Normally functioning bioprosthetic aortic valve has replace severe aortic stenosis Measurements 2D Linear Measurements IVSd: 1.00 0.6-0.9/0.6-1.0 cm LVIDd: 4.10 3.9-5.3/4.2-5.9 cm LVIDd Index: 2.00 2.4-3.2/2.2-3.1 cm/m2 LVIDs: 2.35 2.0-3.6 cm LVPWd: 0.98 0.7-1.1 cm LA Diam: 2.90 2.7-3.8/3.0-4.0 cm LAIDs Index: 1.41 1.5-2.3 cm/m2 LV Mass: 161.95 67-162/88-224 g LV Mass Index: 79.00 43-95/49-115 g/m2 LVOT Diam: 2.00 3.0+(-)1.3 cm 2D Systolic Function EF 4C: 68.00 >55% Mitral Valve MV VTI: 0.28 MV Pk Tripp: 1.28 MV Mn Tripp: 0.73 MV Pk Grad: 7.00 MV Mn Grad: 3.00 MV Pk E: 0.60 MV PK A: 1.05 MV Decel Time: 118.00 E/A: 0.60 E'Lateral: 6.91 E'Medial: 4.46 E/E' Med: 13.30 E/E' Lat: 8.60 PHT: 35.00 MVA PHT: 6.29 MVA Continuity: 2.24 Decel Kern: 5.05 Aortic Valve AoV Pk Tripp: 1.55 AoV Mn Tripp: 1.02 AoV VTI: 0.28 AoV Pk Grad: 10.00 Aov Mn Grad: 5.00 TITO Cont.VTI: 2.23 LVOT LVOT Pk Tripp: 1.10 LVOT Mn Tripp: 0.85 LVOT VTI: 0.20 LVOT Pk Grad: 5.00 LVOT Mn Grad: 3.00 LVOT Diam: 2.00 LVOT Area: 3.14 Diastolic Function MV Pk E: 0.60 MV Pk A: 1.05 E/A: 0.60 E'Medial: 4.46 E/E' Med: 13.30 E' Laterial: 6.91 E/E' Lat: 8.60 Right Ventricle TAPSE (mm): 17.50 TVS' Tripp: 13.20 Great Vessels Aorta Ao Asc: 3.40 2.1-3.4 cm Updated in Other Vendor System with Status of Final Thanh Beckwith MD electronically signed on 06/28/2025 1:15:29 PM with status of Final
--- OUTSIDE RECORDS SUMMARY | 2025-06-28 09:03 | XMS_ITS | Clinical Summary ---
Author Organization [facility], Address [address] [place] [address] Phone Care Team Providers Care Collection Correspondent Name Role Phone Zuhair Singh MD Primary Care Provider [phone] Allergies No known active allergies Medications levothyroxine [...] age to complete this topic Insurance [facility] Care Teams Collection Correspondent Relationship Specialty Start Date End Date Zuhair Singh MD [address] [place] [address] [address] [place], [place] PCP - General Internal Medicine 12/25/20
--- OUTSIDE RECORDS SUMMARY | 2025-06-28 09:03 | XMS_ITS | Patient Health Record ---
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 Role Phone Samantha (RETIRED) Zuhair CALDERA Primary Care Provide r Unavailable Jv Johnson Unavailable [phone] Reason For Referral No Information Medications Medication [...] Problem Status W/U Status Risk Notes Problem Screening for malignant neoplasm of colon (116713856) Encounter for screening for malignant neoplasm of colon (Z12.11) Active confirmed Problem Screening for malignant neoplasm of rectum (867083957) Encounter for screening for malignant neoplasm of rectum (Z12.12) Active confirmed Problem Preprocedural examination ([id number]) Preprocedural examination (Z01.818) Active confirmed Plan Of Treatment Pending Test Test Name Order Date GI BIOPSY 06/16/2016 Future Test Test Name Order Date COLONOSCOPY 02/14/2016 Insurance Providers Payer Name Payer Address Payer Phone Subscriber Number Group Number Insured Name Patient Relationship to Insured Coverage Start Date Coverage End Date [facility] [address] [place] [phone] [id number] SIRENA FLORES Self - patient is the [...]
== END ==
LOC: HO.CARD 08:34
PROVIDERS: PCP Internal Medicine; Visit Provider Internal Medicine Cardiovascular Disease
DX: Z95.2 Presence of prosthetic heart valve (principal)
CPT/HCPCS: 93306

== ENCOUNTER → 2025-06-28 08:37 | Outpatient (BNV) | payer MEDICARE, SELFPAY | PROVIDERS: PCP Internal Medicine; Visit Provider Internal Medicine Cardiovascular Disease | DX: Z95.2 Presence of prosthetic heart valve (principal) | CPT/HCPCS: 93306 ==

== ENCOUNTER 2025-07-24 10:06 | Outpatient (AMB) | payer MEDICARE, SELFPAY ==
[2025-07-24 10:07] VITALS: BMI 34.2
--- NOTE | 2025-07-24 10:07 | A.OFFPC_ITS ---
Vital Signs 07/24/25 10:07 Height 5 ft 6 in Weight 212 lb 2 oz BMI 34.2 Intake Visit Reasons: Tinea Uguim Intake Note: Heidi is a 85 year old female who presents today as a new patient for an evaluation of her Tinea Uguim. Patient states she has been having the fungus for about a year, on bilateral toenails. Denies any treatments for the fungus at this time. Allergies No Known Allergies (No Known Allergies*) Allergy (Verified 05/16/25 09:12) Tobacco use date assessed: 05/16/25 Dental Screening Dental Screen Date: 01/19/25 [facility] Medical History (Updated 07/24/25 @ 10:39 by Keila Koroma DPM) Nail dystrophy Nail disorder Renal cyst, acquired Arthritis of knee Shoulder pain Anal pain Thyroid disease Arthritis Hypothyroidism (acquired) Hard of hearing Kidney stones Hypertension Surgical History (Updated 06/06/25 @ 13:20 by Thanh Beckwith MD) Hx of cardiac cath History of colonoscopy (~06/16/16) History of lithotripsy (~08/15/16) History of thyroidectomy Family History Father Myocardial infarct Mother Myocardial infarct Social History Housing: House Alcohol intake: never Patient Tobacco Use Status: Former Tobacco user e-Cigarette/Vaping Use: Former Use service: No Current occupational status: retired Cognitive needs: No Hearing needs: No Vision needs: Yes (rx glasses) Questionnaire Thrive Questionnaire Date Thrive assessed: 05/16/25 I am a: Patient What is your living situation today?: I choose not to answer this question Within the past 12 months, did the food you bought not last and you didn't have the money to get more?: Sometimes True Within the past 12 months, did you worry whether your food would run out before you got money to buy more?: I choose not to answer this question Do you have trouble paying for medicines?: No Do you have trouble getting transportation to medical appointments?: Yes Do you have trouble paying your heating and electricity bill?: Yes Do you have trouble taking care of your child, family member or friend?: No Do you have trouble with day-to-day activities such as bathing, preparing meals, shopping, managing finances, etc.?: No Are you currently unemployed and looking for a job?: No Are you interested in more education?: No Currently or been in a relationship where the following occur: No concerns reported THRIVE Score: 3 RAFA-7 AMB Questionnaire RAFA-7 Date RAFA - 7 assessed: 12/14/24 Source: Developed by Drs. Jv Jacobson, Rosanna Mendoza, Quang Rojas and colleagues, with an educational manuel from [employer]. Physical exam (Primary Care) BMI result Body Mass Index 34.2 Tobacco/Smoking Status: Tobacco use Status Tobacco use date assessed 05/16/25 07/24/25 10:10 Patient Tobacco Use Status Former Tobacco user 07/24/25 10:10 e-Cigarette/Vaping Use Former Use 07/24/25 10:10 Thrive Assessment: Date of Thrive Assessment Date Thrive assessed 05/16/25 07/24/25 10:10 Currently or been in a relationship where the following occur: No concerns reported Coding Diagnoses PVD (peripheral vascular disease) I73.9 Varicose veins of right lower extremity with inflammation I83.11 Onychomycosis B35.1 Nail disorder L60.9 Nail dystrophy L60.3 Assessment & Plan Assessment & Plan (1) PVD (peripheral vascular disease): Code(s): I73.9 - Peripheral vascular disease, unspecified Category: Medical (2) Varicose veins of right lower extremity with inflammation: Code(s): I83.11 - Varicose veins of right lower extremity with inflammation Category: Medical (3) Onychomycosis: Code(s): B35.1 - Tinea unguium Category: Medical (4) Nail disorder: Code(s): L60.9 - Nail disorder, unspecified Category: Medical (5) Nail dystrophy: Code(s): L60.3 - Nail dystrophy Category: Medical Orders: Orders Surgical Today B35.1 - Tinea unguium, L60.3 - Nail dystrophy, L60.9 - Nail disorder, unspecified Fungus Cult Hair/Skin/Nail Today B35.1 - Tinea unguium, I73.9 - Peripheral vascular disease, unspecified, I83.11 - Varicose veins of right lower extremity with inflammation, L60.3 - Nail dystrophy, L60.9 - Nail disorder, unspecified
--- NOTE | 2025-07-24 10:42 | MHC.OFFVIS ---
Vital Signs 07/24/25 10:07 Height 5 ft 6 in Weight 212 lb 2 oz BMI 34.2 Intake Visit Reasons: Tinea Uguim Intake Note: Heidi is a 85 year old female who presents today for an evaluation of Tinea Uguim. Patient states she has had the fungus for about a year on bilateral toenails. Denies any previous treatment at this time. Allergies No Known Allergies (No Known Allergies*) Allergy (Verified 05/16/25 09:12) HPI Comments Details: The patient is an 85-year-old female with a past medical history as seen below presenting with thickened, elongated, discolored toenails times 10. The patient states she has noticed these changes to the nails over a year. Patient denies any previous treatment for this condition. Patient states she has poor circulation to the lower extremities resulting in swelling. Patient states she sees vascular and has had various procedures done. She denies any recent pedal injuries. She denies any other pedal concerns. Patient denies any numbness or tingling to the lower extremities. [facility] Medical History (Updated 07/24/25 @ 10:39 by Keila Koroma DPM) Nail dystrophy Nail disorder Renal cyst, acquired Arthritis of knee Shoulder pain Anal pain Thyroid disease Arthritis Hypothyroidism (acquired) Hard of hearing Kidney stones Hypertension Surgical History (Updated 06/06/25 @ 13:20 by Thanh Beckwith MD) Hx of cardiac cath History of colonoscopy (~06/16/16) History of lithotripsy (~08/15/16) History of thyroidectomy Family History Father Myocardial infarct Mother Myocardial infarct Social History Housing: House Alcohol intake: never Patient Tobacco Use Status: Former Tobacco user e-Cigarette/Vaping Use: Former Use service: No Current occupational status: retired Cognitive needs: No Hearing needs: No Vision needs: Yes (rx glasses) Review of Systems Const Details: - Dermatological: Reports thickened, discolored, dystrophic, elongated toenails times 10. - Vascular: Reports PVD. All systems reviewed & are unremarkable except as noted in HPI and below Physical Exam Vital Signs: BMI result Body Mass Index 34.2 Extrem Other: Bilateral lower extremity focused physical exam: Derm: Thickened, dystrophic, discolored, and elongated toenails times 10 with subungual debris noted. No open lesions abrasions or wounds noted. No ecchymosis or discoloration noted. No clinical signs of infection. No interdigital maceration noted. Vascular: DP pulses palpable. PT pulses nonpalpable. Capillary refill time less than 3 seconds. Temperature gradient warm to warm. Pedal hair absent. Varicosities noted. Mild nonpitting edema noted. Neuro: Protective sensation is grossly intact. MSK: No pain on palpation to the forefoot, hindfoot, and ankles. Range of motion of the forefoot, hindfoot, ankles slightly limited with stiffness. No crepitus or fluctuance noted. Slower gait noted with the use of a cane. Office Procedures AMB Debridement/Avulsion Podia Details: Debrided toenails times 10 using sterile nail nippers and sterile marky bur with Dremel without incidents. Nail samples to be sent to pathology and microbiology. [id number] of Nail 6+ Procedure code (CPT) selection complete Results Reviewed Results Reviewed: Laboratory Tests 05/16/25 10:00 AST 25 ALT 13 Toenail samples to be sent to pathology and microbiology. Assessment & Plan Assessment & Plan (1) PVD (peripheral vascular disease): Code(s): I73.9 - Peripheral vascular disease, unspecified Category: Medical (2) Varicose veins of right lower extremity with inflammation: Code(s): I83.11 - Varicose veins of right lower extremity with inflammation Category: Medical (3) Onychomycosis: Code(s): B35.1 - Tinea unguium Category: Medical (4) Nail disorder: Code(s): L60.9 - Nail disorder, unspecified Category: Medical (5) Nail dystrophy: Code(s): L60.3 - Nail dystrophy Category: Medical Plan Patient was informed and verbally consented to the use of an ambient scribe for clinic note documentation during this visit. I discussed with the patient the likelihood of onychomycosis and the plan to send toenail samples to the for confirmation. Provided patient with information of treatment including topical and oral medications. I also explained the importance of regular follow-up visits every nine weeks for toenail trimming and monitoring. The patient was advised to report any new symptoms or changes in her condition. - Debrided toenails times 10 without incidents. - Toenail samples obtained and sent to pathology and microbiology. - Advised patient to wear compression stockings. - Advised patient to avoid barefoot walking and to wear supportive shoe gear. RTC in 9 weeks. Orders: Orders Surgical Today B35.1 - Tinea unguium, L60.3 - Nail dystrophy, L60.9 - Nail disorder, unspecified AMB Debridement/Avulsion Podiatry Today B35.1 - Tinea unguium, I73.9 - Peripheral vascular disease, unspecified, I83.11 - Varicose veins of right lower extremity with inflammation, L60.3 - Nail dystrophy, L60.9 - Nail disorder, unspecified Fungus Cult Hair/Skin/Nail Today B35.1 - Tinea unguium, I73.9 - Peripheral vascular disease, unspecified, I83.11 - Varicose veins of right lower extremity with inflammation, L60.3 - Nail dystrophy, L60.9 - Nail disorder, unspecified Coding Level of Care Code New Pt Level 4 (67251) Diagnoses PVD (peripheral vascular disease) I73.9 Varicose veins of right lower extremity with inflammation I83.11 Onychomycosis B35.1 Nail disorder L60.9 Nail dystrophy L60.3 CPT Codes Skin Debridement - CPT: 28027-Rtnyazmotfg of Nail 6+ ([id number]) Time Spent (min) 55 Comment 10 mins for procedure.
--- OUTSIDE RECORDS SUMMARY | 2025-07-24 11:47 | XMS_ITS | Clinical Summary ---
Author Organization [facility], Address [address] [place] [address] Phone Care Team Providers Care Gift Manager Name Role Phone Zuhair Singh MD Primary Care Provider [phone] Allergies No known active allergies Medications levothyroxine [...] patient's age to complete this topic Insurance [facility] Teams Gift Manager Relationship Specialty Start Date End Date Zuhair Singh MD [address] [place] [address] [id number] [place], [place] PCP - General Internal Medicine 12/25/20
== END 2025-07-24 10:53 | disposition home or self-care (01) ==
LOC: HO.HPODS 10:06
PROVIDERS: PCP Internal Medicine; Visit Provider Student in an Organized Health Care Education/Training Program
DX: I73.9 Peripheral vascular disease, unspecified (principal); I83.11 Varicose veins of right lower extremity with inflammation; B35.1 Tinea unguium; L60.9 Nail disorder, unspecified; L60.3 Nail dystrophy
CPT/HCPCS: 11721; 99204

== ENCOUNTER 2025-07-24 10:06 | Outpatient (REF) | payer MEDICARE, SELFPAY | END 2025-07-24 10:07 | disposition home or self-care (01) | LOC: HO.LNP 10:06 | PROVIDERS: PCP Internal Medicine; Visit Provider Student in an Organized Health Care Education/Training Program | DX: B35.1 Tinea unguium (principal); I83.11 Varicose veins of right lower extremity with inflammation; I73.9 Peripheral vascular disease, unspecified; L60.3 Nail dystrophy; L60.9 Nail disorder, unspecified | CPT/HCPCS: 11721; 87101; 87220; 88304; 88311; 88312; 99202 ==

== ENCOUNTER 2025-07-31 11:12 | Outpatient (AMB) | payer MEDICARE, SELFPAY ==
[2025-07-31 11:56] VITALS: BP 130/60; PULSE 63; BMI 33.7
--- NOTE | 2025-07-31 11:56 | A.OFFVIS_ITS ---
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 She underwent 26 mm Evolut FX +well. She did quite well after the procedure and is here for follow-up. She has refused cardiac rehabilitation and does not want to go for rehab. The son is saying that she does some activities in the house but overall quite sedentary. Denying any chest pain or shortness of breath. Her main complaint is that she has cold feet in his asking if there is any medication for that. She is on beta-bautista which sometimes can lead to similar side effects. Overall doing quite well. Her post TAVR echocardiogram at 1 month was reviewed which showed preserved LV function with normal functioning bioprosthetic aortic valve with mean gradient of 5 mm Hg. No paravalvular regurgitation noted. [facility] Medical History Nail dystrophy Nail disorder Renal cyst, acquired Arthritis of knee Shoulder pain Anal pain Thyroid disease Arthritis Hypothyroidism (acquired) Hard of hearing Kidney stones Hypertension Surgical History Hx of cardiac cath History of colonoscopy (~06/16/16) History of lithotripsy (~08/15/16) History of thyroidectomy Family History Father Myocardial infarct Mother Myocardial infarct Social History Housing: House Alcohol intake: never Patient Tobacco Use Status: Former Tobacco user e-Cigarette/Vaping Use: Former Use service: No Current occupational status: retired Cognitive needs: No Hearing needs: No Vision needs: Yes (rx glasses) Review of Systems Const Denies chills, Denies fatigue, Denies fever(s), Denies frequent falls, Denies weakness, Denies weight gain and Denies weight loss ENT Denies dizziness Card Denies chest pain, Denies leg edema, Denies lightheadedness, Denies palpitati ons, Denies dyspnea and Denies dyspnea on exertion Resp Denies cough, Denies dyspnea and Denies dyspnea on exertion GI Denies hematochezia Musc Denies abnormal gait, Denies muscle weakness, Denies numbness, Denies radiating pain into limb and Denies tingling Neuro Denies abnormal gait, Denies dizziness, Denies frequent falls, Denies numbness, Denies tingling and Denies weakness Endo Denies fatigue and Denies palpitations Physical Exam Vital Signs: Last Vital Signs Pulse 63 07/31/25 11:56 BP 130/60 07/31/25 11:56 BMI result Body Mass Index 33.7 GENERAL APPEARANCE: in no acute distress, pleasant. NECK: no carotid bruit, no jugular venous distention. SKIN: no suspicious lesions, warm and dry. HEART: Soft systolic murmur aortic area, regular rate and rhythm. LUNGS: clear to auscultation bilaterally. ABDOMEN: soft, nontender. EXTREMITIES: no edema. PERIPHERAL PULSES: equal. NEUROLOGIC: No gross deficits, AAO X 3 Office Procedures EKG Details: Sinus 63 beats per minute, normal axis, low voltage, nonspecific T-wave changes, QTC 386 milliseconds. 12104-Hioedrodedifyjjcl, Complete Assessment & Plan Assessment & Plan (1) S/P TAVR (transcatheter aortic valve replacement): Comment: 26 mm Evolut Code(s): Z95.2 - Presence of prosthetic heart valve Category: Medical Plan Pleasant 85 year lady with background history of hypertension and severe aortic valve stenosis now status post transcatheter aortic valve replacement in May of 2025 with a 26 mm Evolut FX +valve. Mean gradient across the valve at 1 month this 5 mm Hg. No paravalvular leak. She has been doing well. Blood pressure well controlled. Clinically stable and she will see me back in 1 year. In the meantime she will follow up with Dr. Beckwith. We will set her up in [address] Beckwith. Thank you for allowing me to participate in the care of your patient. Please feel free to contact me if you have any questions. Coding Level of Care Code Est Pt Level 4 (89851) Diagnoses S/P TAVR (transcatheter aortic valve replacement) Z95.2 CPT Codes EKG - CPT: 55326-Nalyvrmdraucgkfqh, Complete ([id number])
== END 2025-07-31 12:34 | disposition home or self-care (01) ==
LOC: HO.HCS 11:13
PROVIDERS: PCP Internal Medicine; Visit Provider Internal Medicine Cardiovascular Disease
DX: Z95.2 Presence of prosthetic heart valve (principal)
CPT/HCPCS: 93010; 99214

== ENCOUNTER → 2025-07-31 11:12 | Outpatient (BNVA) | payer MEDICARE, SELFPAY | PROVIDERS: PCP Internal Medicine; Visit Provider Internal Medicine Cardiovascular Disease | DX: I10 Essential (primary) hypertension (principal); Z95.2 Presence of prosthetic heart valve | CPT/HCPCS: 93005; 99212 ==

== ENCOUNTER 2025-08-15 10:36 | Outpatient (AMB) | payer MEDICARE, SELFPAY ==
[2025-08-15 10:38] VITALS: BMI 33.6
--- NOTE | 2025-08-15 10:38 | MHC.OFFVIS ---
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 Patient complains of right middle, ring, and small finger numbness and tingling without associated sleep disturbance. 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 Denies finger locking. She is currently wearing braces at night with relief. She is also taking Tylenol PRN with relief. Denies any prior injuries or surgeries to the right hand. 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 EMG IMPRESSION 02/14/25: Moderately severe right median neuropathy across carpal tunnel. 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 Patient complains of right middle, ring, and small finger numbness and tingling without associated sleep disturbance. 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 Denies finger locking. She is currently wearing braces at night with relief. She is also taking Tylenol PRN with relief. Denies any prior injuries or surgeries to the right hand. 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 EMG IMPRESSION 02/14/25: Moderately severe right median neuropathy across carpal tunnel. [facility] Medical History Nail dystrophy Nail disorder Renal cyst, acquired Arthritis of knee Shoulder pain Anal pain Thyroid disease Arthritis Hypothyroidism (acquired) Hard of hearing Kidney stones Hypertension Surgical History Hx of cardiac cath History of colonoscopy (~06/16/16) History of lithotripsy (~08/15/16) History of thyroidectomy Family History Father Myocardial infarct Mother Myocardial infarct Social History Housing: House Alcohol intake: never Patient Tobacco Use Status: Former Tobacco user e-Cigarette/Vaping Use: Former Use service: No Current occupational status: retired Cognitive needs: No Hearing needs: No Vision needs: Yes (rx glasses) Review of Systems Const All systems reviewed & are unremarkable except as noted in HPI and below Physical Exam Vital Signs: BMI result Body Mass Index 33.6 Extrem Other: Neuro: Normal sensation of the tips of all digits of both hands in the office today No thenar or intrinsic wasting. Good APB muscle firing and good finger cross. Vascular: Capillary refill brisk. ROM: Patient can make a fist and extend all their digits. Skin: No lacerations or abrasions noted. General: No ecchymosis. No erythema or evidence of infection. Assessment & Plan Assessment & Plan (1) Right carpal tunnel syndrome: Code(s): G56.01 - Carpal tunnel syndrome, right upper limb Category: Medical (2) Numbness and tingling in left hand: Code(s): R20.0 - Anesthesia of skin; R20.2 - Paresthesia of skin Category: Medical Plan 1. Right carpal tunnel syndrome 2. Numbness and tingling of left hand\ Symptoms intermittent, daily, worse at night Patient is educated about this condition Patient is educated about the typical treatment course At this time, patient is educated that the preferred treatment for carpal tunnel syndrome is surgery, but she would not like to move forward with this at this time Patient is provided with our contact information for when she would like to proceed with surgical intervention Patient will call us when she is ready to discuss this sooner with any acute concerns Follow-up as needed Coding Level of Care Code New Pt Level 3 (52280) Diagnoses Right carpal tunnel syndrome G56.01 Numbness and tingling in left hand R20.0; R20.2
== END 2025-08-15 11:16 | disposition home or self-care (01) ==
LOC: HO.HOS 10:36
PROVIDERS: PCP Internal Medicine
DX: G56.01 Carpal tunnel syndrome, right upper limb (principal); R20.0 Anesthesia of skin; R20.2 Paresthesia of skin
CPT/HCPCS: 99203

== ENCOUNTER → 2025-08-15 10:36 | Outpatient (BNVA) | payer MEDICARE, SELFPAY | PROVIDERS: PCP Internal Medicine | DX: G56.01 Carpal tunnel syndrome, right upper limb (principal); R20.0 Anesthesia of skin; R20.2 Paresthesia of skin | CPT/HCPCS: 99202 ==